=== PATIENT | female | born 1965 | race Caucasian/White ===

== ENCOUNTER 2017-12-31 12:33 | Emergency (ER) | payer OTHER ==
[2017-12-31 12:40] VITALS: BP 198/81; PULSE 78; TEMP 97.9; BMI 32.3
--- NOTE | 2017-12-31 13:29 | PDOC ---
History of Present Illness - General Chief Complaint: Pain Stated Complaint: RT LEG PAIN Time Seen by Provider: 12/31/17 12:45 History Source: Patient Exam Limitations: No Limitations - History of Present Illness Initial Comments: 12/31/17 13:26 52 yr female with right leg pain radiates to thigh. PT denies trauma, pain started in the bottom of her foot and now radiates to the calf and to the thigh , during the night had "cramping" to the leg. Pt denies travel, no recent surgery. no history of DVT. Past History - Past Medical History Allergies/Adverse Reactions: Allergies Allergy/AdvReac Type Severity Reaction Status Date / Time No Known Allergies Allergy Verified 12/31/17 12:40 Home Medications: Ambulatory Orders Metoprolol Tartrate [Lopressor -] 50 mg PO DAILY 05/22/12 Quinapril HCl [Accupril -] 10 mg PO HS 05/22/12 Simvastatin [Zocor -] 40 mg PO HS 05/22/12 metFORMIN HCL [Glucophage] 500 mg PO BID 05/22/12 Insulin (Levemir) [Levemir Vial] 35 unit SQ HS 10/28/14 Diazepam [Valium] 5 mg PO Q8H PRN #12 tablet MDD 15mg 12/31/17 COPD: No Diabetes: Yes HTN: Yes Hypercholesterolemia: Yes Other medical history: left calf infection - Surgical History Orthopedic Surgery: Yes (left calf abscess ) - Suicide/Smoking/Psychosocial Hx Smoking Status: No Smoking History: Never smoked Have you smoked in the past 12 months: No Number of Cigarettes Smoked Daily: 0 Hx Alcohol Use: No Drug/Substance Use Hx: No Substance Use Type: None *Physical Exam - Vital Signs Last Vital Signs Temp Pulse Resp BP Pulse Ox 97.9 F 78 18 198/81 99 12/31/17 12:35 12/31/17 12:35 12/31/17 12:35 12/31/17 12:35 12/31/17 12:35 - Physical Exam General Appearance: Yes: Nourished, Appropriately Dressed HEENT: positive: EOMI, LEONARDA Neck: positive: Supple. negative: Tender Respiratory/Chest: positive: Lungs Clear, Normal Breath Sounds Cardiovascular: positive: Regular Rhythm, Regular Rate Gastrointestinal/Abdominal: positive: Normal Bowel Sounds, Soft Musculoskeletal: positive: Normal Inspection. negative: CVA Tenderness Extremity: positive: Normal Capillary Refill, Normal Inspection, Normal Range of Motion, Tender (posterior calf ) Integumentary: positive: Normal Color, Dry, Warm Neurologic: positive: butter wrapper II-XII NML intact, Fully Oriented, Alert, Normal Mood/ Affect ED Treatment Course - LABORATORY CBC & Chemistry Diagram: 12/31/17 13:10 12/31/17 13:10 - RADIOLOGY Radiology Studies Ordered: Category Date Time Status DUPLEX VASCUL US-1 LEG [US] Stat Ultrasound 12/31/17 13:00 Ordered Medical Decision Making - Medical Decision Making 12/31/17 13:29 cc: right leg pain, plantar pain radiates to calf and thigh worse with walking will r/o DVT check electrolytes pt took ibuprofen PEDIATRIC SURGEON 12/31/17 13:52 negative US CBC within normal discussed elevated BUN with pt will increase water intake have labs rechecked by PMD on Tuesday12/31/17 14:44 *DC/Admit/Observation/Transfer Diagnosis at time of Disposition: Muscle spasm - Discharge Dispostion Disposition: HOME Condition at time of disposition: Good - Prescriptions Prescriptions: Diazepam [Valium] 5 mg PO Q8H PRN #12 tablet MDD 15mg PRN Reason: Muscle Spasms - Referrals - Patient Instructions Additional Instructions: follow up with your doctor next week take the valium as needed for any spasm , it may help at bedtime - Post Discharge Activity
[2017-12-31 13:30] LABS: BASO % 0.8 % (0-2.0); EOS % 5.8 % (0-4.5); HEMATOCRIT 38.1 % (32.4-45.2); HEMOGLOBIN 12.9 GM/dL (10.7-15.3); MCH 30.1 pg (25.7-33.7); MCHC 33.9 g/dl (32.0-36.0); MEAN CELL VOLUME 88.7 fl (80-96); MEAN PLT VOLUME 10.2 fl (7.5-11.1); MONO % 4.9 % (3.8-10.2); NEUT % 61.5 % (42.8-82.8); PLATELET COUNT 220 K/MM3 (134-434); RBC 4.29 M/mm3 (3.60-5.2); RDW 12.6 % (11.6-15.6); WHITE BLOOD COUNT 7.2 K/mm3 (4.0-10.0)
[2017-12-31 14:27] LABS: ALBUMIN 3.9 g/dl (3.4-5.0); ANION GAP 9 (8-16); BILIRUBIN,TOTAL 0.2 mg/dL (0.2-1.0); BLOOD UREA NITROGEN 23 mg/dL (7-18); CALCIUM 9.1 mg/dL (8.5-10.1); CHLORIDE 105 mmol/L (98-107); CO2 24 mmol/L (21-32); GLUCOSE,RANDOM 273 mg/dL (74-106); POTASSIUM 4.8 mmol/L (3.5-5.1); SGOT/AST 13 U/L (15-37); SGPT/ALT 24 U/L (12-78); SODIUM 138 mmol/L (136-145); TOT PROT 7.7 g/dl (6.4-8.2)
[2017-12-31 14:28] LABS: ALK PHOS 97 U/L (45-117)
== END 2017-12-31 14:46 | disposition home or self-care (01) ==
LOC: JERFT 12:33
DX: M62.831 Muscle spasm of calf (principal); M62.838 Other muscle spasm; I10 Essential (primary) hypertension; E78.00 Pure hypercholesterolemia, unspecified; E11.9 Type 2 diabetes mellitus without complications; Z79.4 Long term (current) use of insulin; Z79.84 Long term (current) use of oral hypoglycemic drugs
CPT/HCPCS: 36415; 73630-TC-LT; 80053; 85025; 93971-TC; 99281-25

== ENCOUNTER 2018-01-01 19:47 | Inpatient (IN) | payer OTHER ==
--- NOTE | 2018-01-01 21:03 | PDOC ---
History of Present Illness - General History Source: Patient Exam Limitations: No Limitations - History of Present Illness Initial Comments: 01/01/18 22:51 Patient is a 52 year old female with a significant past medical history of Diabetes, HTN, Hypercholesterolemia, left calf infection, who presents to the ED with complaints of left leg pain that began x4 weeks ago. Patient reports left leg pain began 1 month ago and has gradually increased in intensity until this afternoon when it became unbearable. She reports coming to the ED yesterday afternoon for left leg pain, stating she was prescribed valium and discharged from the ED. Patient reports taking valium and aspirin with no relief , prompting her to come into the ED for further evaluation. She reports left leg pain is a 10/10 pain that is increased with movement, that she states radiated from her knee to her mid left high yesterday afternoon but has recently begun to radiate to her left hip. Denies chest pain, sob. Denies nausea, vomiting, Denies contact with sick individuals, out of state travelling. Denies tingles, trauma to affected area. Denies any other symptoms. Allergies: None Social history: No smoking. No alcohol. No illicit drugs. Surgical history: Left leg surgery x7 years secondary to infection. PMD: None <Dilan Augustin - Last Filed: 01/01/18 22:51> <Debra Huang - Last Filed: 01/02/18 05:38> - General Chief Complaint: Pain Stated Complaint: LEG PAIN Time Seen by Provider: 01/01/18 20:04 Past History <Dilan Augustin - Last Filed: 01/01/18 22:51> - Past Medical History COPD: No DVT: No Diabetes: Yes HTN: Yes Hypercholesterolemia: Yes - Surgical History Orthopedic Surgery: Yes (left calf abscess ) - Suicide/Smoking/Psychosocial Hx Smoking Status: No Smoking History: Never smoked Have you smoked in the past 12 months: No Number of Cigarettes Smoked Daily: 0 Information on smoking cessation initiated: No Hx Alcohol Use: No Drug/Substance Use Hx: No Substance Use Type: None <Debra Huang - Last Filed: 01/02/18 05:38> - Past Medical History Allergies/Adverse Reactions: Allergies Allergy/AdvReac Type Severity Reaction Status Date / Time No Known Allergies Allergy Verified 12/31/17 12:40 Home Medications: Ambulatory Orders Metoprolol Tartrate [Lopressor -] 50 mg PO DAILY 05/22/12 Quinapril HCl [Accupril -] 10 mg PO HS 05/22/12 Simvastatin [Zocor -] 40 mg PO HS 05/22/12 metFORMIN HCL [Glucophage] 500 mg PO BID 05/22/12 Insulin (Levemir) [Levemir Vial] 35 unit SQ HS 10/28/14 Diazepam [Valium] 5 mg PO Q8H PRN #12 tablet MDD 15mg 12/31/17 Review of Systems - Review of Systems Able to Perform ROS?: Yes Comments:: 01/01/18 22:51 GENERAL/CONSTITUTIONAL: No fever or chills. No weakness. HEAD, EYES, EARS, NOSE AND THROAT: No change in vision. No ear pain or discharge. No sore throat. CARDIOVASCULAR: No chest pain or shortness of breath. RESPIRATORY: No cough, wheezing, or hemoptysis. GASTROINTESTINAL: No nausea, vomiting, diarrhea or constipation. GENITOURINARY: No dysuria, frequency, or change in urination. MUSCULOSKELETAL: +Left leg pain. No joint or muscle swelling. No neck or back pain. SKIN: No rash NEUROLOGIC: No headache, vertigo, loss of consciousness, or change in strength/ sensation. ENDOCRINE: No increased thirst. No abnormal weight change. HEMATOLOGIC/LYMPHATIC: No anemia, easy bleeding, or history of blood clots. ALLERGIC/IMMUNOLOGIC: No hives or skin allergy. <Dilan Augustin - Last Filed: 01/01/18 22:51> *Physical Exam - Vital Signs Last Vital Signs Temp Pulse Resp BP Pulse Ox 97.5 F L 84 22 180/98 99 01/01/18 19:50 01/01/18 22:24 01/01/18 22:24 01/01/18 22:24 01/01/18 19:50 - Physical Exam Comments: 01/01/18 22:52 GENERAL: +Overweight. +Good historian. Awake, alert, and fully oriented, in no acute distress HEAD: No signs of trauma EYES: PERRLA, EOMI, sclera anicteric, conjunctiva clear ENT: Auricles normal inspection, hearing grossly normal, nares patent, oropharynx clear without exudates. Moist mucosa NECK: Normal ROM, supple, no lymphadenopathy, JVD, or masses LUNGS: Breath sounds equal, clear to auscultation bilaterally. No wheezes, and no crackles HEART: Regular rate and rhythm, normal S1 and S2, no murmurs, rubs or gallops ABDOMEN: Soft, nontender, normoactive bowel sounds. No guarding, no rebound. No masses EXTREMITIES: + Good pedal pulses bilaterally. +PT pulses not felt bilaterally. + Left leg colder than right from hip to toes. +Left calf surgical scar with missing muscle. Normal range of motion, no edema. No clubbing or cyanosis. No cords, erythema, or tenderness NEUROLOGICAL: +Able to ambulate. Cranial nerves II through XII grossly intact. Normal speech, normal gait SKIN: Warm, Dry, normal turgor, no rashes or lesions noted. <Dilan Augustin - Last Filed: 01/01/18 22:51> - Vital Signs Last Vital Signs Temp Pulse Resp BP Pulse Ox 97.5 F L 96 H 20 183/109 99 01/01/18 19:50 01/01/18 19:50 01/01/18 19:50 01/01/18 19:50 01/01/18 19:50 <Debra Huang - Last Filed: 01/02/18 05:38> ED Treatment Course - LABORATORY CBC & Chemistry Diagram: 01/01/18 22:00 01/01/18 22:20 - ADDITIONAL ORDERS Additional order review: Laboratory Results 01/01/18 01/01/18 01/01/18 22:20 22:00 22:00 PT with INR 10.90 INR 0.96 PTT (Actin FS) 27.8 D-Dimer 598 H Creatine Kinase 68 Troponin I < 0.02 01/01/18 22:00 RBC 4.80 MCV 87.6 MCHC 33.7 RDW 13.2 MPV 10.1 Neutrophils % 62.9 Lymphocytes % 28.8 Monocytes % 5.1 Eosinophils % 2.6 Basophils % 0.6 - Medications Given in the ED: ED Medications Discontinued Medications Generic Name Dose Route Start Last Admin Trade Name Freq PRN Reason Stop Dose Admin Quinapril HCl 10 mg 01/01/18 22:14 01/01/18 22:37 Accupril - PO 01/01/18 22:15 10 mg ONCE ONE Administration <Dilan Augustin - Last Filed: 01/01/18 22:51> - LABORATORY CBC & Chemistry Diagram: 01/01/18 22:00 01/01/18 22:20 <Debra Huang - Last Filed: 01/02/18 05:38> Medical Decision Making - Medical Decision Making 01/01/18 22:48 Ddimer is 598. Pt comes with left leg pain. She wose up yesterday with foot pain radiating up her leg. SHe came to the ER and was seen in fast track and ruled out for DVT. Pt comes back as the pain is still there and is radiating up the leg further. She has no fevers or chills. She is leaning to the right side as the left leg is so painful. Pt's left leg is colder than the right leg. Pt will have CTA of the lower ext. Pt will have labs, as her BP wa systolic 198 yesterday and 183 today. Pt states that she is complaint with her metoprolol and quinapril for the BP. SHe will be treated with an extra dose of quinapril here and a dose of percocet here. 01/02/18 05:37 Pt will be admitted for Vasc surg consult. She will receive IV lovenox. <Debra Huang - Last Filed: 01/02/18 05:38> *DC/Admit/Observation/Transfer - Attestations Scribe Attestion: 01/01/18 22:52 Documentation prepared by Dilan Augustin, acting as medical records administrator for Debra Huang MD. <Dilan Augustin - Last Filed: 01/01/18 22:51> - Discharge Dispostion Decision to Admit order: Yes <Debra Huang - Last Filed: 01/02/18 05:38> Diagnosis at time of Disposition: Arterial occlusion, lower extremity - Discharge Dispostion Condition at time of disposition: Guarded
[2018-01-01] MEDS ORDERED: QUINAPRIL HCL 10 MG TABLET (FP) PO ONE (22:14)
[2018-01-01 22:25] LABS: BASO % 0.6 % (0-2.0); EOS % 2.6 % (0-4.5); HEMATOCRIT 42.1 % (32.4-45.2); HEMOGLOBIN 14.2 GM/dL (10.7-15.3); LYMPH % 28.8 % (8-40); MCH 29.5 pg (25.7-33.7); MCHC 33.7 g/dl (32.0-36.0); MEAN CELL VOLUME 87.6 fl (80-96); MEAN PLT VOLUME 10.1 fl (7.5-11.1); MONO % 5.1 % (3.8-10.2); NEUT % 62.9 % (42.8-82.8); PLATELET COUNT 276 K/MM3 (134-434); RDW 13.2 % (11.6-15.6)
[2018-01-01] MEDS ORDERED: QUINAPRIL HCL 10 MG TABLET (FP) ONE (22:29)
[2018-01-01 22:41] LABS: ACTIVATED PTT 27.8 SECONDS (25.2-36.5); INR 0.96 (0.82-1.09); PROTHROMBIN TIME (PATIENT) 10.9 SEC (9.7-13.0)
[2018-01-01 23:21] LABS: ALBUMIN 4.2 g/dl (3.4-5.0); ALK PHOS 70 U/L (45-117); ANION GAP 15 (8-16); BILIRUBIN,TOTAL 0.3 mg/dL (0.2-1.0); BLOOD UREA NITROGEN 23 mg/dL (7-18); CALCIUM 10.2 mg/dL (8.5-10.1); CHLORIDE 104 mmol/L (98-107); CO2 21 mmol/L (21-32); CREATININE 1.1 mg/dL (0.55-1.02); GLUCOSE,RANDOM 191 mg/dL (74-106); POTASSIUM 4.2 mmol/L (3.5-5.1); SGOT/AST 14 U/L (15-37); SGPT/ALT 24 U/L (12-78); SODIUM 140 mmol/L (136-145); TOT PROT 8.4 g/dl (6.4-8.2)
[2018-01-02] MEDS ORDERED: ONDANSETRON 4 MG/2 ML VIAL ONE (00:17)
[2018-01-02] MEDS ORDERED: MORPHINE SULFATE 2 MG/ML VIAL ONE (00:17)
[2018-01-02] MEDS ORDERED: morphine CARPU-JECT 2 MG/1 ML DISP.SYRIN IVPUSH ONE (00:17)
[2018-01-02] MEDS ORDERED: ONDANSETRON 4 MG/2 ML VIAL IVPB ONE (00:17)
[2018-01-02] MEDS ORDERED: SODIUM CHLORIDE 0.9% 500 ML INFUS.BAG IV ONE (01:24)
[2018-01-02] MEDS ORDERED: ENOXAPARIN NA (PORCINE) 80 MG/0.8 ML DISP.SYRIN SQ ONE ×2 (01:35→01:50)
--- NOTE | 2018-01-02 02:41 | PN ---
Teaching Attending Note Name of Resident: Nigel Umaña ATTENDING PHYSICIAN STATEMENT I saw and evaluated the patient. I reviewed the resident's note and discussed the case with the resident. I agree with the resident's findings and plan as documented. SUBJECTIVE: Patient is a 52 year old woman history of NIDDM, HTN, Multiple abscesses, Hypercholesterolemia, left calf infection, who presents to the ER with complaints of left leg pain for four weeks. Patient reports left leg pain began 1 month ago and has gradually increased in intensity until this afternoon when it became unbearable. She came to the ER yesterday for same left leg pain, was evaluated and discharged on valium. Patient reports taking valium and aspirin with no relief, prompting her to come into the ER for further evaluation. She reports left leg pain is a 10/10 pain that is increased with movement, that she states radiated from her knee to her mid left thigh and hip. OBJECTIVE: Alert and in no acute distress. Vital Signs Period Temp Pulse Resp BP Sys/Rivera Pulse Ox Last 24 Hr 97.5 F 74-96 16-22 140-183/80-109 99 HEENT: No Jaundice, eye redness or discharge, PERRLA, EOMI. Normocephalic, atraumatic. External ears are normal and hearing is grossly intact. No nasal discharge. Neck: Supple, nontender. No palpable adenopathy or thyromegaly. No JVD Chest: Good effort. Clear to auscultation and percussion. Heart: Regular. No S3, rub or murmur Abdomen: Not distended, soft, nontender and no HSM. No rebound or guarding. Normoactive bowel sounds. Ext: Both legs are pale and the left is a little cooler than the right with diminished pulses. No tenderness. Left calf surgical scar with reduced muscle mass. No leg edema. Skin: Warm and dry. No petechiae, rash or ecchymosis. Neuro: Alert. Oriented x3. CN 2-12 grossly intact. Sensation grossly intact in all four extremities and DTR are symmetric. Home Medications Medication Instructions Recorded Metoprolol Tartrate [Lopressor -] 50 mg PO DAILY 05/22/12 Quinapril HCl [Accupril -] 10 mg PO HS 05/22/12 Simvastatin [Zocor -] 40 mg PO HS 11/26/12 metFORMIN HCL [Glucophage] 500 mg PO BID 05/22/12 Insulin (Levemir) [Levemir Vial] 35 unit SQ HS 10/28/14 Diazepam [Valium] 5 mg PO Q8H PRN #12 tablet MDD 15mg 12/31/17 Abnormal Lab Results 01/01/18 01/01/18 01/01/18 22:00 22:00 22:20 WBC 11.0 H D-Dimer 598 H BUN 23 H Creatinine 1.1 H Random Glucose 191 H Calcium 10.2 H AST 14 L Total Protein 8.4 H ASSESSMENT AND PLAN: 1. Left leg arterial occlusion - Clinical features as well as CT scan consistent with possible partial arterial occlusion. Patient got a full dose lovenox and vascular surgery consult is being requested stat. 2. DM - For now, we will hold the home diabetes drugs and implement sliding scale insulin regimen. Provide comprehensive diabetes care with patient teaching and counseling about the importance of euglycemia, eye care and foot care. 3. LUIS - Likely due to dehydration. Will hydrate orally and with IV NS. Avoid nephrotoxic agents such as NSAIDS, aminoglycosides, contrast dyes and certain Alternative medicine products. 4. Hypercalcemia - May be due to dehydration. If it fails to correct with hydration, will check PTH. 5. DVT prophylaxis - Getting full dose Lovenox 6. Advance directives - Full code
[2018-01-02] MEDS ORDERED: ACETAMINOPHEN 325 MG TABLET (FP) PO PRN (03:48)
--- NOTE | 2018-01-02 03:57 | HP ---
CHIEF COMPLAINT: left lower leg pain PCP: HISTORY OF PRESENT ILLNESS: 52 y/o female with PMH DM, HTN, HLD, left calf infection 7 years ago, presents with lateral left lower leg pain. States the pain began 4 weeks ago as a vague on/ off pain that progressed to more severe pain over past two days. States she woke up yesterday with pain and came to the ED where she was prescribed valium and aspirin. States today the pain is excruciating, and radiates to the left thigh anteriorly and medially. Admits to ability to bear weight, but difficulty walking. Denies fevers, chills, SOB, chest pain, palpitations, N/V/D. ER course was notable for: (1) (2) (3) Recent Travel: PAST MEDICAL HISTORY: PMH DM, HTN, HLD, left calf infection 7 years ago PAST SURGICAL HISTORY: Left leg surgery 7 years ago for "muscle infection" Social History: Smoking: denies Alcohol: admits, socially Drugs: denies Family History: HCM, lung cancer (father) Allergies No Known Allergies Allergy (Verified 12/31/17 12:40) HOME MEDICATIONS: Home Medications Medication Instructions Recorded Metoprolol Tartrate [Lopressor -] 50 mg PO DAILY 05/22/12 Quinapril HCl [Accupril -] 10 mg PO HS 05/22/12 Simvastatin [Zocor -] 40 mg PO HS 05/22/12 metFORMIN HCL [Glucophage] 500 mg PO BID 05/22/12 Insulin (Levemir) [Levemir Vial] 35 unit SQ HS 10/28/14 Diazepam [Valium] 5 mg PO Q8H PRN #12 tablet MDD 15mg 12/31/17 REVIEW OF SYSTEMS CONSTITUTIONAL: Absent: fever, chills, diaphoresis, generalized weakness, CARDIOVASCULAR: Absent: chest pain, syncope, palpitations RESPIRATORY: Absent: cough, shortness of breath, wheezing GASTROINTESTINAL: Absent: abdominal pain, nausea, vomiting, diarrhea, MUSCULOSKELETAL: Admits: Left leg pain. NEUROLOGIC: Admits: Paresthesias in left lower leg. Absent: headache, focal weakness, dizziness, PHYSICAL EXAMINATION Vital Signs - 24 hr 01/01/18 01/01/18 01/02/18 19:50 22:24 01:10 Temperature 97.5 F L Pulse Rate 96 H Pulse Rate [ 84 74 Left Brachial] Respiratory 20 22 16 Rate Blood Pressure 183/109 Blood Pressure 180/98 140/80 [Left Arm] O2 Sat by Pulse 99 Oximetry (%) GENERAL: Awake, alert, and fully oriented, in no acute distress. HEAD: Normal with no signs of trauma. EYES: Pupils equal, round and reactive to light, extraocular movements intact LUNGS: Breath sounds equal, clear to auscultation bilaterally. No wheezes, and no crackles. HEART: Regular rate and rhythm, normal S1 and S2. No murmur, rub or gallop. ABDOMEN: Soft, nontender, normoactive bowel sounds. MUSCULOSKELETAL: Normal range of motion at all joints. No bony deformities or tenderness. No CVA tenderness. UPPER EXTREMITIES: 2+ pulses, warm, well-perfused. LOWER EXTREMITIES: 2+ DP pulses B/L. Left leg cooler compared to right leg. NEUROLOGICAL: Cranial nerves II-XII intact. Normal speech. PSYCHIATRIC: Cooperative. Appropriate mood and affect. SKIN: Pallor of left leg noted compared to right leg. Laboratory Results - last 24 hr 01/01/18 01/01/18 01/01/18 22:00 22:00 22:00 WBC 11.0 H RBC 4.80 Hgb 14.2 Hct 42.1 MCV 87.6 MCH 29.5 MCHC 33.7 RDW 13.2 Plt Count 276 D MPV 10.1 Absolute Neuts (auto) 6.9 Neutrophils % 62.9 Lymphocytes % 28.8 Monocytes % 5.1 Eosinophils % 2.6 Basophils % 0.6 Nucleated RBC % 0 PT with INR 10.90 INR 0.96 PTT (Actin FS) 27.8 D-Dimer 598 H Sodium Potassium Chloride Carbon Dioxide Anion Gap BUN Creatinine Creat Clearance w eGFR Random Glucose Calcium Total Bilirubin AST ALT Alkaline Phosphatase Creatine Kinase Troponin I Total Protein Albumin 01/01/18 01/01/18 22:20 22:20 WBC RBC Hgb Hct MCV MCH MCHC RDW Plt Count MPV Absolute Neuts (auto) Neutrophils % Lymphocytes % Monocytes % Eosinophils % Basophils % Nucleated RBC % PT with INR INR PTT (Actin FS) D-Dimer Sodium 140 Potassium 4.2 Chloride 104 Carbon Dioxide 21 Anion Gap 15 BUN 23 H Creatinine 1.1 H Creat Clearance w eGFR 52.36 Random Glucose 191 H Calcium 10.2 H Total Bilirubin 0.3 AST 14 L ALT 24 Alkaline Phosphatase 70 D Creatine Kinase 68 Troponin I < 0.02 Total Protein 8.4 H Albumin 4.2 ASSESSMENT/PLAN: 52 y/o female with PMH DM, HTN, HLD, left calf infection presents with complaint of left lower leg pain for the past 4 weeks. Ischemia -CTA of lower extremity showed possible partial arterial occlusion. -Vascular surgery Dr. Fernandez consulted -Tylenol PRN for pain Elevated BUN/Cr -Encouraging oral hydration Proteinuria with elevated albumin -Consider protein studies as outpatient to r/o multiple myeloma DM -Insulin sliding scale -Fingerstick blood glucose monitoring FEN -Oral hydration encouraged -No electrolyte repletion at this time -Diabetic diet Prophylaxis -Lovenox 40mg subq Q24H Disposition: admit to medical surgical unit Advance directives: Full code Case discussed with functional support analyst attending Nigel Umaña DO PGY1 Visit type - Emergency Visit Emergency Visit: Yes ED Registration Date: 01/02/18 Care time: The patient presented to the Emergency Department on the above date and was hospitalized for further evaluation of their emergent condition. - New Patient This patient is new to me today: Yes Date on this admission: 01/02/18 - Critical Care Critical Care patient: No Hospitalist Screening - Colonoscopy Questionnaire Colonoscopy Questionnaire: Colonoscopy Questionnaire - Patient: 50 - 75 years old and never had a screening colonoscopy: Unknown History of colon or rectal polyps, or CA: Unknown History of IBD, Crohn's disease or UC: Unknown History of abdominal radiation therapy as a child: Unknown - Relative: 1 with colon or rectal CA, or polyps at age 60 or younger: Unknown Colon or rectal CA diagnosed at age 45 or younger: Unknown Multiple relatives with colon or rectal CA: Unknown - Outcome: Screening Result: Negative Screen
[2018-01-02 05:07] VITALS: BMI 36.0
[2018-01-02] MEDS ORDERED: PT OWN MED DRAWER 7, Y5N ONE ×2 (05:56→11:00)
[2018-01-02] MEDS ORDERED: ENOXAPARIN NA (PORCINE) 40 MG/0.4 ML DISP.SYRIN SQ ONE (06:34)
[2018-01-02] MEDS: INSULIN SLIDING SCALE (NOVOLOG) 1 VIAL SQ SCH ×4 (06:57→21:37)
--- NOTE | 2018-01-02 08:49 | EKG ---
Test Reason : Blood Pressure : / mmHG Vent. Rate : 077 BPM Atrial Rate : 077 BPM P-R Int : 124 ms QRS Dur : 084 ms QT Int : 394 ms P-R-T Axes : 025 001 007 degrees QTc Int : 445 ms NORMAL SINUS RHYTHM NORMAL ECG NO PREVIOUS ECGS AVAILABLE Confirmed by NAVA MACHADO MD ([id number]) on 01/02/2018 8:49:26 AM Referred By: Confirmed By:NAVA MACHADO MD
[2018-01-02] MEDS ORDERED: oxyCODONE HCL 5 MG TABLET PO PRN (10:29)
[2018-01-02] MEDS: ONDANSETRON 4 MG/2 ML VIAL IVPB PRN ×2 (10:58→18:46)
[2018-01-02] MEDS: METOPROLOL TARTRATE 50 MG TABLET (FP) PO SCH (11:43)
[2018-01-02] MEDS ORDERED: INSULIN (NOVOLOG) ASPART 100 UNITS/ML 10ML VIAL ONE (11:46)
[2018-01-02] MEDS: diazePAM 5 MG TABLET PO PRN ×2 (13:12→23:43)
[2018-01-02] MEDS: MORPHINE SULFATE 2 MG/ML VIAL IVPUSH PRN ×2 (13:12→21:23)
[2018-01-02] MEDS: ENOXAPARIN NA (PORCINE) 100 MG/1 ML DISP.SYRIN SQ SCH (13:12)
--- NOTE | 2018-01-02 14:09 | PN ---
Progress Note (short form) - Note Progress Note: Subjective: The patient was seen and examined at the bedside, exam limited 2/2 pain Patient has complaints of left leg pain from the left buttock to her toes. Left leg is cold Current Medications Generic Name Dose Route Start Last Admin Trade Name Freq PRN Reason Stop Dose Admin Acetaminophen 650 mg 01/02/18 03:48 01/02/18 07:07 Tylenol - PO 650 mg Q6H PRN Administration Fever Or Pain Level 1-5 Atorvastatin Calcium 20 mg 01/02/18 22:00 Lipitor - PO HS BHARATH Diazepam 5 mg 01/02/18 10:28 01/02/18 13:12 Valium - PO 5 mg Q8H PRN Administration MUSCLE SPASMS Enoxaparin Sodium 100 mg 01/02/18 13:00 01/02/18 13:12 Lovenox - SQ 100 mg Q12H BHARATH Administration Insulin Aspart 1 vial 01/02/18 07:00 01/02/18 11:46 Novolog Vial Sliding Scale - SQ 6 units ACHS BHARATH Administration Protocol Insulin Detemir 35 units 01/02/18 22:00 Levemir Vial SQ HS [facility] Metoprolol Tartrate 50 mg 01/02/18 10:30 01/02/18 11:43 Lopressor - PO 50 mg DAILY BHARATH Administration Morphine Sulfate 2 mg 01/02/18 13:00 01/02/18 13:12 Morphine Sulfate IVPUSH 2 mg Q4H PRN Administration PAIN LEVEL 7 - 10 Ondansetron HCl 4 mg 01/02/18 10:32 01/02/18 10:58 Zofran Injection IVPB 4 mg Q8H PRN Administration NAUSEA Oxycodone HCl 5 mg 01/02/18 10:29 Roxicodone - PO Q6H PRN PAIN LEVEL 7 - 10 Quinapril HCl 10 mg 01/02/18 22:00 Accupril - PO HS [facility] Objective: Vital Signs Period Temp Pulse Resp BP Sys/Rivera Pulse Ox Last 24 Hr 97.5 F-98.1 F 74-96 16-22 140-183/80-109 98-99 Physical Exam: Limited 2/2 pain Ext: LLE cold with 2+ DP pulses CBCD WBC 11.0 K/mm3 (4.0-10.0) H 01/01/18 22:00 RBC 4.80 M/mm3 (3.60-5.2) 01/01/18 22:00 Hgb 14.2 GM/dL (10.7-15.3) 01/01/18 22:00 Hct 42.1 % (32.4-45.2) 01/01/18 22:00 MCV 87.6 fl (80-96) 01/01/18 22:00 MCHC 33.7 g/dl (32.0-36.0) 01/01/18 22:00 RDW 13.2 % (11.6-15.6) 01/01/18 22:00 Plt Count 276 K/MM3 (134-434) D 01/01/18 22:00 MPV 10.1 fl (7.5-11.1) 01/01/18 22:00 CMP Sodium 140 mmol/L (136-145) 01/01/18 22:20 Potassium 4.2 mmol/L (3.5-5.1) 01/01/18 22:20 Chloride 104 mmol/L (98-107) 01/01/18 22:20 Carbon Dioxide 21 mmol/L (21-32) 01/01/18 22:20 Anion Gap 15 (8-16) 01/01/18 22:20 BUN 23 mg/dL (7-18) H 01/01/18 22:20 Creatinine 1.1 mg/dL (0.55-1.02) H 01/01/18 22:20 Creat Clearance w eGFR 52.36 (>60) 01/01/18 22:20 Random Glucose 191 mg/dL (74-106) H 01/01/18 22:20 Calcium 10.2 mg/dL (8.5-10.1) H 01/01/18 22:20 Total Bilirubin 0.3 mg/dL (0.2-1.0) 01/01/18 22:20 AST 14 U/L (15-37) L 01/01/18 22:20 ALT 24 U/L (12-78) 01/01/18 22:20 Alkaline Phosphatase 70 U/L (45-117) D 01/01/18 22:20 Total Protein 8.4 g/dl (6.4-8.2) H 01/01/18 22:20 Albumin 4.2 g/dl (3.4-5.0) 01/01/18 22:20 CARDIAC ENZYMES Creatine Kinase 68 IU/L (26-192) 01/01/18 22:20 Troponin I < 0.02 ng/ml (0.00-0.05) 01/01/18 22:20 Assessment: This is a 52 year old female with PMHx of NIDDM, HTN, hypercholesterolemia, who presented to the ED with left leg pain x4 weeks. Plan: 1) Left leg pain - Discussed with Dr. Fernandez who reviewed CTA and recommended neurosurgery consult - Discussed with Dr. Rubalcava, recommendation to order imaging, CT lumbar and MRI lumbar - Pain management - Continue to monitor 2) NIDDM - BGM ACHS - ISS ACHS - Levemir 3) HTN - Continue Lopressor 4) F/E/N: - Monitor electrolytes - Diabetic/sodium controlled diet 5) Prophylaxis: - Hold all chemical DVT prophylaxis for now if possible surgical intervention tomorrow 6) Dispo: - Requires continued inpatient care CODE STATUS: FULL CODE Visit type - Emergency Visit Emergency Visit: Yes ED Registration Date: 01/02/18 Care time: The patient presented to the Emergency Department on the above date and was hospitalized for further evaluation of their emergent condition. - New Patient This patient is new to me today: Yes Date on this admission: 01/02/18 - Critical Care Critical Care patient: No
[2018-01-02] MEDS: DEXAMETHASONE SOD PHOSPHATE 4 MG/1 ML VIAL IVPUSH SCH ×2 (16:53→21:19)
[2018-01-02] MEDS: PANTOPRAZOLE SODIUM 40 MG VIAL IVPUSH SCH (16:53)
--- NOTE | 2018-01-02 19:30 | PN ---
Progress Note (short form) - Note Progress Note: VAscular Surgery Pt seen and examined. Pt has bl DP pulses palpable. Pt complaining of pain that starts in the back and goes down her left leg. CTA is negative for any embolus that would cause ischemia. The left foot is not ischemic. Neurosurgery on case for neurological component for etiology. Jamie Fernandez DO
[2018-01-02] MEDS ORDERED: CHLORHEXIDINE GLUCONATE 4% CLEANSER FOR DECOLONIZATION TP SCH (22:00)
[2018-01-02] MEDS ORDERED: INSULIN (LEVEMIR) 100 UNITS/ML UNITS SQ SCH (22:00)
[2018-01-02] MEDS ORDERED: ATORVASTATIN CA 20 MG TABLET (FP) PO SCH (22:00)
[2018-01-02] MEDS ORDERED: QUINAPRIL HCL 10 MG TABLET (FP) PO SCH (22:00)
--- NOTE | 2018-01-02 22:56 | CONSULT ---
Consult - text type - Consultation Consultation Note: NEUROSURGERY CONSULTATION Roslyn Villalobos is a 52 year old female with a history of back and leg pain which has been managed with conservative efforts. Four weeks ago, the patient developed exacerbation with Left Leg radicular pain including groin and anterior thigh pain on the Left. The patient presented to the [facility] ER with intractable pain and was found to have cool lower extremities, particularly on the Left. Complete vascular evaluation by Dr. Fernandez including CTA did not suggest vascular compromise contributing to her leg coolness. Neurosurgery consultation was requested. MRI Lumbar shows multilevel degenerative disease with a fairly large HNP at L23 which effaces the ventral epidural space and compromises both exiting nerve roots. There is mild listhesis and Modic changes suggestive of instability. The patient appears to be in absolute agony and cannot shift in bed. Indeed, examination is severely hampered by her pain and she must remain on her Right side with her legs slightly bent at the waist and extended and deviated to the right on a small ottoman. MRI Lumbar suggests that the L23 disc is most likely causative of her acute problems and the position of comfort would also hint that this is the level of Pathology. I will discuss L23 decompression and fusion with patient and spouse in detail in the morning. (MRI obtained subsequent to my visit to the patient)
[2018-01-03] MEDS ORDERED: MELATONIN 5 MG TABLETS PO PRN ×2 (00:31→19:37)
[2018-01-03] MEDS: ENOXAPARIN NA (PORCINE) 100 MG/1 ML DISP.SYRIN SQ SCH ×2 (01:19→18:11)
[2018-01-03] MEDS: MORPHINE SULFATE 2 MG/ML VIAL IVPUSH PRN ×2 (01:41→09:19)
[2018-01-03] MEDS: DEXAMETHASONE SOD PHOSPHATE 4 MG/1 ML VIAL IVPUSH SCH ×4 (03:11→22:30)
[2018-01-03] MEDS: INSULIN SLIDING SCALE (NOVOLOG) 1 VIAL SQ SCH ×4 (06:07→23:48)
--- NOTE | 2018-01-03 08:48 | PN ---
Progress Note (short form) - Note Progress Note: Subjective: The patient was seen and examined at the bedside, she discussed surgery with Dr. Rubalcava and is scheduled to have it today. The patient reports concern as she has had two family members after receiving anesthesia. She states they both had hypertrophic cardiomyopathy. She states she was worked up for it a few years ago and believes it was negative. Stat ECHO ordered Cardiology consult Discussed above with Dr. Meyer and that patient will need cardiac clearance prior to surgery. He is in agreement with plan. Current Medications Generic Name Dose Route Start Last Admin Trade Name Freq PRN Reason Stop Dose Admin Acetaminophen 650 mg 01/02/18 03:48 01/02/18 07:07 Tylenol - PO 650 mg Q6H PRN Administration Fever Or Pain Level 1-5 Atorvastatin Calcium 20 mg 01/02/18 22:00 01/02/18 21:20 Lipitor - PO 20 mg HS BHARATH Administration Chlorhexidine Gluconate 1 applic 01/02/18 22:00 Hibiclens For Decolonization - TP HS BHARATH Dexamethasone Sodium Phosphate 6 mg 01/02/18 15:45 01/03/18 03:11 Decadron Injection - IVPUSH 6 mg Q6H-IV BHARATH Administration Diazepam 5 mg 01/02/18 10:28 01/02/18 23:43 Valium - PO 5 mg Q8H PRN Administration MUSCLE SPASMS Enoxaparin Sodium 100 mg 01/02/18 13:00 01/03/18 01:19 Lovenox - SQ Not Given Q12H BHARATH Sodium Chloride 1,000 mls @ 100 mls/hr 01/03/18 09:00 Normal Saline - IV ASDIR BHARATH Insulin Aspart 1 vial 01/02/18 16:30 01/03/18 06:07 Novolog Vial Sliding Scale - SQ 8 units ACHS BHARATH Administration Protocol Insulin Detemir 35 units 01/02/18 22:00 01/02/18 21:40 Levemir Vial SQ Not Given HS BHARATH Melatonin 5 mg 01/03/18 00:31 01/03/18 00:42 Melatonin PO 5 mg HS PRN Administration INSOMNIA Metoprolol Tartrate 50 mg 01/02/18 10:30 01/02/18 11:43 Lopressor - PO 50 mg DAILY BHARATH Administration Morphine Sulfate 2 mg 01/02/18 13:00 01/03/18 01:41 Morphine Sulfate IVPUSH 2 mg Q4H PRN Administration PAIN LEVEL 7 - 10 Ondansetron HCl 4 mg 01/02/18 10:32 01/02/18 18:46 Zofran Injection IVPB 4 mg Q8H PRN Administration NAUSEA Oxycodone HCl 5 mg 01/02/18 10:29 Roxicodone - PO Q6H PRN PAIN LEVEL 7 - 10 Pantoprazole Sodium 40 mg 01/02/18 15:45 01/02/18 16:53 Protonix Iv IVPUSH 40 mg DAILY BHARATH Administration Quinapril HCl 10 mg 01/02/18 22:00 01/02/18 21:38 Accupril - PO 10 mg HS BHARATH Administration Objective: Vital Signs Period Temp Pulse Resp BP Sys/Rivera Pulse Ox Last 24 Hr 97.5 F-98.3 F 82-98 18-20 149-160/69-90 98 Physical Exam: General: NAD, appears more comfortable today and in less pain Heart: RRR, S1S2 Lungs: CTA bilaterally Abd: Soft, non-tender, non-distended. Normoactive bowel sounds Ext: B/l 2+ DP. Lower extremities both warm CBCD WBC 11.0 K/mm3 (4.0-10.0) H 01/01/18 22:00 RBC 4.80 M/mm3 (3.60-5.2) 01/01/18 22:00 Hgb 14.2 GM/dL (10.7-15.3) 01/01/18 22:00 Hct 42.1 % (32.4-45.2) 01/01/18 22:00 MCV 87.6 fl (80-96) 01/01/18 22:00 MCHC 33.7 g/dl (32.0-36.0) 01/01/18 22:00 RDW 13.2 % (11.6-15.6) 01/01/18 22:00 Plt Count 276 K/MM3 (134-434) D 01/01/18 22:00 MPV 10.1 fl (7.5-11.1) 01/01/18 22:00 CMP Sodium 140 mmol/L (136-145) 01/01/18 22:20 Potassium 4.2 mmol/L (3.5-5.1) 01/01/18 22:20 Chloride 104 mmol/L (98-107) 01/01/18 22:20 Carbon Dioxide 21 mmol/L (21-32) 01/01/18 22:20 Anion Gap 15 (8-16) 01/01/18 22:20 BUN 23 mg/dL (7-18) H 01/01/18 22:20 Creatinine 1.1 mg/dL (0.55-1.02) H 01/01/18 22:20 Creat Clearance w eGFR 52.36 (>60) 01/01/18 22:20 Random Glucose 191 mg/dL (74-106) H 01/01/18 22:20 Calcium 10.2 mg/dL (8.5-10.1) H 01/01/18 22:20 Total Bilirubin 0.3 mg/dL (0.2-1.0) 01/01/18 22:20 AST 14 U/L (15-37) L 01/01/18 22:20 ALT 24 U/L (12-78) 01/01/18 22:20 Alkaline Phosphatase 70 U/L (45-117) D 01/01/18 22:20 Total Protein 8.4 g/dl (6.4-8.2) H 01/01/18 22:20 Albumin 4.2 g/dl (3.4-5.0) 01/01/18 22:20 CARDIAC ENZYMES Creatine Kinase 68 IU/L (26-192) 01/01/18 22:20 Troponin I < 0.02 ng/ml (0.00-0.05) 01/01/18 22:20 Assessment: This is a 52 year old female with PMHx of NIDDM, HTN, hypercholesterolemia, who presented to the ED with left leg pain x4 weeks. Plan: 1) Left leg pain - Discussed with Dr. Fernandez who reviewed CTA and recommended neurosurgery consult - Lumbar MRI with L2-3 loss of disc space height, vacuum phenomena noted in the disc space. T2 increased signal intensity of the disc material. Prominent circumferential disc bulge with midline disc extrusion, 6mm caudal extension of the disc in relation to the L2-L3 disc space behind the superior posterior aspect of L3 vertebral body. Central spinal canal stenosis. B/l neural foraminal narrowing - Discussed with neurosurgery yesterday who recommended starting Decadron 6mg q6h - For surgery today with Dr. Rubalcava - Pain management - Continue to monitor 2) Family history of hypertrophic cardiomyopathy - Stat ECHO: discussed with Dr. Haines who read ECHO as normal - Cardiology consult for clearance - Discussed with Dr. Rubalcava, he is aware the surgery may need to be pushed back until clearance obtained 2) NIDDM - BGM ACHS - ISS ACHS - Levemir 3) HTN - Continue Lopressor 4) F/E/N: - Monitor electrolytes - NPO for surgery today 5) Prophylaxis: - Hold all chemical DVT prophylaxis for surgery today 6) Dispo: - Requires continued inpatient care CODE STATUS: FULL CODE Visit type - Emergency Visit Emergency Visit: Yes ED Registration Date: 01/02/18 Care time: The patient presented to the Emergency Department on the above date and was hospitalized for further evaluation of their emergent condition. - New Patient This patient is new to me today: No - Critical Care Critical Care patient: No
[2018-01-03] MEDS ORDERED: SODIUM CHLORIDE 1,000 ML IV SCH (09:00)
[2018-01-03] MEDS: PANTOPRAZOLE SODIUM 40 MG VIAL IVPUSH SCH (09:20)
[2018-01-03] MEDS: METOPROLOL TARTRATE 50 MG TABLET (FP) PO SCH (09:20)
--- NOTE | 2018-01-03 10:14 | PN ---
Progress Note (short form) - Note Progress Note: Echo system is currently down. Report cannot be entered at this time. Full report will be done when system back up. Echo images reviewed from machine. Briefly, Technically difficult study, grossly normal LV systolic function, No significant intracavitary or LVOT gradient seen. No significant valvular abnormalities seen.
[2018-01-03] MEDS ORDERED: INSULIN (NOVOLOG) ASPART 100 UNITS/ML 10ML VIAL SQ ONE ×3 (12:25→19:37)
--- NOTE | 2018-01-03 12:28 | CON.CARD ---
Consult Consult Specialty:: Cardiology Referred by:: Hospitalist Reason for Consultation:: Cardiac clearance - History of Present Illness Chief Complaint: Left leg pain due to lumbar disc disease History of Present Illness: Patient is a 52 year old female with underlying history of HTN, hypercholesterolemia and DM (type 2) who presents with left lower extremity pain due to lumbar disc disease (as noted on MRI). She was seen by Neurosurgery and currently is scheduled for surgical intervention of her lumbar spine. Patient reported extensive family history of hypertrophic cardiomyopathy and some had due to it. Surgery was held until echocardiography which was ordered and cardiac clearance was requested. Currently she denies chest pain, shortness of breath or palpitations. She denies paroxysmal nocturnal dyspnea or orthopnea. She denies nausea, vomiting, diarrhea or abdominal pain. She denies fever or chills. She denies headache or lightheadedness - History Source History Provided By: Patient, Medical Record Limitations to Obtaining History: No Limitations - Past Medical History Cardio/Vascular: Yes: HTN, Hyperlipdemia Endocrine: Yes: Diabetes Mellitus - Alcohol/Substance Use Hx Alcohol Use: No - Smoking History Smoking history: Never smoked Have you smoked in the past 12 months: No Aproximately how many cigarettes per day: 0 Home Medications - Allergies Allergies/Adverse Reactions: Allergies Allergy/AdvReac Type Severity Reaction Status Date / Time No Known Allergies Allergy Verified 12/31/17 12:40 - Home Medications Home Medications: Ambulatory Orders Metoprolol Tartrate [Lopressor -] 50 mg PO DAILY 05/22/12 Quinapril HCl [Accupril -] 10 mg PO HS 05/22/12 Simvastatin [Zocor -] 40 mg PO HS 05/22/12 metFORMIN HCL [Glucophage] 500 mg PO BID 05/22/12 Insulin (Levemir) [Levemir Vial] 35 unit SQ HS 10/28/14 Diazepam [Valium] 5 mg PO Q8H PRN #12 tablet MDD 15mg 12/31/17 Family Disease History - Family Disease History Other Family History: Family history of hypertrophic cardiomyopathy Review of Systems - Review of Systems Constitutional: denies: Chills, Fever Cardiovascular: denies: Chest Pain, Palpitations, Shortness of Breath Respiratory: denies: Cough, Hemoptysis, Orthopnea, PND, SOB, SOB on Exertion Gastrointestinal: denies: Abdominal Pain, Constipation, Diarrhea, Melena, Nausea , Rectal Bleeding, Vomiting Genitourinary: denies: Discharge, Hematuria Neurological: denies: Dizziness, Headache, Seizure, Syncope, Unsteady Gait, Weakness Vital Signs: Vital Signs Temperature 97.8 F 01/03/18 09:12 Pulse Rate 105 H 01/03/18 09:12 Respiratory Rate 18 01/03/18 09:12 Blood Pressure 139/87 01/03/18 09:12 O2 Sat by Pulse Oximetry (%) 98 01/02/18 09:00 Eyes: Yes: PERRL HENT: Yes: Atraumatic Neck: Yes: Supple Respiratory: Yes: Regular, CTA Bilaterally Gastrointestinal: Yes: Normal Bowel Sounds, Soft. No: Tenderness Cardiovascular: Yes: Regular Rate and Rhythm JVD: No Carotid Bruit: No PMI: Non-Displaced Heart Sounds: Yes: S1, S2. No: Gallop Murmur: No: Systolic Murmur, Diastolic Murmur Extremities: Yes: Cool Edema: No - Other Data Labs, Other Data: CBC, BMP 01/01/18 22:00 01/01/18 22:20 INR, PTT INR 0.96 (0.82-1.09) 01/01/18 22:00 Normal sinus rhythm with normal ECG Echo: Pending Problem List - Problems (1) Lumbar disc disease Code(s): M51.9 - UNSP THORACIC, THORACOLUM AND LUMBOSACR INTVRT DISC DISORDER (2) HTN (hypertension) Code(s): I10 - ESSENTIAL (PRIMARY) HYPERTENSION Qualifiers: Hypertension type: essential hypertension Qualified Code(s): I10 - Essential (primary) hypertension (3) Hypercholesterolemia Code(s): E78.00 - PURE HYPERCHOLESTEROLEMIA, UNSPECIFIED (4) Diabetes mellitus Code(s): E11.9 - TYPE 2 DIABETES MELLITUS WITHOUT COMPLICATIONS Qualifiers: Diabetes mellitus type: type 2 Diabetes mellitus skilled nursing insulin use: without watermelon inspector use Diabetes mellitus complication status: without complication Qualified Code(s): E11.9 - Type 2 diabetes mellitus without complications (5) Encounter for pre-operative cardiovascular clearance Code(s): Z01.810 - ENCOUNTER FOR PREPROCEDURAL CARDIOVASCULAR EXAMINATION Assessment/Plan 1. Lumbar disc disease 2. HTN 3. Hypercholesterolemia 4. DM (type II) 5. Family history of hypertrophic cardiomyopathy PLAN: 1. No absolute contraindication for surgery in view of absence of ischemic symptoms, decompensated congestive heart failure or malignant arrhythmias. Echocardiography does not reveal evidence of hypertrophic obstructive cardiomyopathy 2. Continue Metoprolol and Quinipril 3. Statin therapy Further plans are to follow Zak Abebe MD
[2018-01-03] MEDS ORDERED: ROCURONIUM BROMIDE 50 MG/5 ML VIAL ONE ×2 (14:12→15:32)
[2018-01-03] MEDS ORDERED: PROPOFOL 20 ML ONE (14:12)
[2018-01-03] MEDS ORDERED: MIDAZOLAM HCL 2 MG/2 ML SINGLE DOSE VIAL ONE (14:12)
[2018-01-03] MEDS ORDERED: LIDOCAINE HCL/PF 2% SDV 5ML VIAL ONE (14:13)
[2018-01-03] MEDS ORDERED: GENTAMICIN SO4 80 MG/2 ML VIAL ONE (14:16)
[2018-01-03] MEDS ORDERED: THROMBIN (BOVINE) 5,000 UNIT VIAL TP ONE ×2 (14:16→16:12)
[2018-01-03] MEDS ORDERED: VANCOMYCIN 1,000 MG VIAL (RESTRICTED TO ID ONLY) ONE ×2 (14:16→15:34)
[2018-01-03] MEDS ORDERED: DEXAMETHASONE SOD PHOSPHATE 4 MG/1 ML VIAL IVPUSH ONE (14:36)
[2018-01-03] MEDS ORDERED: ONDANSETRON 4 MG/2 ML VIAL IVPUSH PRN (14:36)
[2018-01-03] MEDS ORDERED: PROMETHAZINE HCL 25 MG/1 ML VIAL IVPB PRN ×2 (14:36→19:37)
[2018-01-03] MEDS ORDERED: HYDROmorphone *PCA* 10MG/50ML DISP.SYRIN PCA SCH ×2 (14:45→19:37)
[2018-01-03] MEDS ORDERED: LACTATED RINGERS SOLUTION 1,000 ML IV SCH (14:45)
[2018-01-03] MEDS ORDERED: ceFAZolin SODIUM 1 GM VIAL ONE ×2 (15:21→23:30)
[2018-01-03] MEDS ORDERED: VANCOMYCIN 1,000 MG VIAL (RESTRICTED TO ID ONLY) IVPB ONE (15:25)
[2018-01-03] MEDS ORDERED: SODIUM CHLORIDE 0.9% P/F 10 ML VIAL IJ ONE (15:34)
[2018-01-03] MEDS ORDERED: ceFAZolin SODIUM 1 GM VIAL IVPB ONE (15:35)
[2018-01-03] MEDS ORDERED: DEXAMETHASONE SOD PHOSPHATE 4 MG/1 ML VIAL ONE (15:38)
[2018-01-03] MEDS ORDERED: BUPIVACAINE HCL/PF 0.5% (5MG/ML) 10 ML VIAL ONE (16:16)
--- NOTE | 2018-01-03 16:41 | ECHO ---
Name: MARSHALL SANCHEZ Exam:Adult Echocardiogram Study Date: 01/03/2018 09:39 AM Reason For Study: Cardiomyopathy Height: 65 in Weight: 216 lb BSA: 2.0 m2 MMode/2D Measurements & Calculations IVSd: 1.3 cm Ao root diam: 2.8 cm EDV(Teich): 61.9 ml LVIDd: 3.8 cm LA dimension: 3.6 cm LVPWd: 1.0 cm Ao root area: 6.1 cm2 Doppler Measurements & Calculations MV E max arturo: 59.7 cm/sec MV dec time: 0.20 sec Lat E/e': 6.2 MV A max arturo: 105.7 cm/sec MV E/A: 0.56 Med E/e': 10.0 Procedure A complete two-dimensional transthoracic echocardiogram was performed (2D, M-mode, Doppler and color flow Doppler). Left Ventricle There is mild concentric left ventricular hypertrophy. The left ventricle is normal in size. Left pranav tricular systolic function is normal. Ejection Fraction = 60%. Patient is in normal sinus rhythm. Grade I atkinson tolic dysfunction, (abnormal relaxation pattern). No regional wall motion abnormalities noted. Right Ventricle The right ventricle is not well visualized. Atria The left atrial size is normal. Mitral Valve The mitral valve is grossly normal. There is trace mitral regurgitation. Tricuspid Valve The tricuspid valve is not well visualized. There is trace tricuspid regurgitation. There was insuffi cient TR detected to calculate RV systolic pressure. Aortic Valve The aortic valve is not well visualized. No hemodynamically significant valvular aortic stenosis. Pulmonic Valve The pulmonic valve is not well visualized. Great Vessels The aortic root is normal size. Interpretation Summary There is mild concentric left ventricular hypertrophy. Left ventricular systolic function is normal. The left atrial size is normal. Grade I diastolic dysfunction, (abnormal relaxation pattern). There is trace mitral regurgitation. There is trace tricuspid regurgitation. There was insufficient TR detected to calculate RV systolic pressure. No hemodynamically significant valvular aortic stenosis. MD Edvin Rahman 01/03/2018 04:40 PM
[2018-01-03] MEDS ORDERED: ACETAMINOPHEN INJECTION 100 ML IVPB ONE (17:15)
[2018-01-03] MEDS ORDERED: BUPIVACAINE HCL/PF (5 MG/ML) 30 ML VIAL IJ ONE (17:41)
[2018-01-03] MEDS ORDERED: GLYCOPYRROLATE 0.2 MG/1 ML VIAL ONE ×2 (17:47→17:48)
[2018-01-03] MEDS ORDERED: NEOSTIGMINE METHYLSULFATE 0.5 MG/ML - 10 ML MDV ONE (17:48)
[2018-01-03] MEDS ORDERED: METOPROLOL TARTRATE 5 MG/5 ML VIAL ONE (18:10)
[2018-01-03] MEDS ORDERED: HYDROmorphone *PCA* 10MG/50ML DISP.SYRIN PCA ONE ×2 (18:20→18:25)
--- NOTE | 2018-01-03 19:20 | OP ---
Operative Note - Note: Operative Date: 01/03/18 Pre-Operative Diagnosis: HNP at L2-L3 level, degenerative disc disease with Lower extremity radiculopathy Operation: Laminectomy and decompression of L2-L3 with microsurgical discectomy and interobody cage and posterior fusion Post-Operative Diagnosis: Same as Pre-op Surgeon: Victoriano Rubalcava Director Of Operations For Therapy: Raphael Toro Anesthesiologist/SKIP LOAD DRIVER: Galdino Schulte Anesthesia: General Estimated Blood Loss (mls): 280 Drains & Tubes with Location: j/p at right lumbar paravertebral Fluid Volume Replaced (mls): 1,300 Operative Report Dictated: Yes
--- NOTE | 2018-01-03 19:31 | SURG ---
Surgery Corporate Physical Security Supervisor Note Corporate Physical Security Supervisor: Raphael Toro PA-C Date of Service: 01/03/18 Diagnosis: HNP at L2-L3 with DDD and LE radiculopathy Procedure: Laminectomy and decompression of L2-L3 with microsurgical discectomy and interobody cage and posterior fusion I was present for the entirety of the operative procedure. For further detail, please refer to operative report. Visit type - Case Type Case Type: ED Admission - Emergency Emergency Visit: Yes ED Registration Date: 01/02/18 Care time: The patient presented to the Emergency Department on the above date and was hospitalized for further evaluation of their emergent condition. - New patient This patient is new to me today: Yes Date on this admission: 01/03/18
[2018-01-03] MEDS ORDERED: ONDANSETRON 4 MG/2 ML VIAL IVPB PRN (19:37)
[2018-01-03] MEDS: SODIUM CHLORIDE 1,000 ML IV SCH (20:30)
[2018-01-03] MEDS ORDERED: CEFAZOLIN 1 GM in DEXTROSE 5%-WATER - 50 ML IVPB SCH (23:30)
[2018-01-03] MEDS ORDERED: DEXTROSE 5%-WATER - 50 ML IVPB ONE (23:31)
[2018-01-03] MEDS: DOCUSATE SODIUM 100 MG CAPSULE (FP) PO SCH (23:36)
[2018-01-03] MEDS: ATORVASTATIN CA 20 MG TABLET (FP) PO SCH (23:36)
[2018-01-03] MEDS: QUINAPRIL HCL 10 MG TABLET (FP) PO SCH (23:37)
[2018-01-03] MEDS: INSULIN (LEVEMIR) 100 UNITS/ML UNITS SQ SCH (23:49)
[2018-01-04] MEDS: CEFAZOLIN 1 GM in DEXTROSE 5%-WATER - 50 ML IVPB SCH ×3 (01:06→17:48)
[2018-01-04] MEDS: DEXAMETHASONE SOD PHOSPHATE 4 MG/1 ML VIAL IVPUSH SCH ×4 (03:06→20:50)
[2018-01-04] MEDS: DOCUSATE SODIUM 100 MG CAPSULE (FP) PO SCH ×3 (06:07→22:09)
[2018-01-04] MEDS: HEPARIN NA (PORCINE) 5,000 UNITS/ML 1ML VIAL SQ SCH ×3 (06:10→22:09)
[2018-01-04] MEDS: INSULIN SLIDING SCALE (NOVOLOG) 1 VIAL SQ SCH ×4 (06:19→22:13)
[2018-01-04] MEDS: SODIUM CHLORIDE 1,000 ML IV SCH (06:43)
[2018-01-04 08:39] LABS: HEMOGLOBIN 11.9 GM/dL (10.7-15.3); MCH 29.5 pg (25.7-33.7); MCHC 32.9 g/dl (32.0-36.0); MEAN CELL VOLUME 89.5 fl (80-96); MEAN PLT VOLUME 10.1 fl (7.5-11.1); PLATELET COUNT 244 K/MM3 (134-434); RBC 4.03 M/mm3 (3.60-5.2); RDW 13.1 % (11.6-15.6)
[2018-01-04] MEDS ORDERED: ACETAMINOPHEN 1000 MG/100 ML VIAL (NON FORMULARY) IVPB PRN (08:53)
[2018-01-04] MEDS ORDERED: HYDROmorphone HCL CARPU-JECT 1 MG/1 ML DISP.SYRIN IVPB PRN (08:54)
[2018-01-04 08:55] LABS: ANION GAP 8 (8-16); BLOOD UREA NITROGEN 31 mg/dL (7-18); CALCIUM 9.1 mg/dL (8.5-10.1); CHLORIDE 103 mmol/L (98-107); CO2 24 mmol/L (21-32); CREATININE 0.9 mg/dL (0.55-1.02); POTASSIUM 4.6 mmol/L (3.5-5.1); SODIUM 135 mmol/L (136-145)
--- NOTE | 2018-01-04 08:59 | PN ---
Progress Note (short form) - Note Progress Note: Post op day#1.S/P L2-L3 Laminectomy with decompression,instrumentation,fusion and interbody cage placement under Ga uneventful.Patient stable and c/o pain score of 2-3/10 on Dilaudid [place] studies professor.PATIENT SERVICES TECHNICIAN is DC today and patient put on PRN pain medication.No any anesthesia related problem.Patient DC from the anesthesia care.
[2018-01-04 09:37] LABS: GLUCOSE,RANDOM 301 mg/dL (74-106)
--- NOTE | 2018-01-04 09:44 | PN ---
Progress Note (short form) - Note Progress Note: surgery POD #1 Laminectomy and decompression of L2-L3 with microsurgical discectomy and interobody cage and posterior fusion. Patient seen and examined at bedside. Patient states she has minimal pain and the pain in her left leg has fully resolved. She is not using her MANAGER HUMAN RESOURCES and tolerating her diet. She denies any C/P, SOB, N/V/ Fever, chills or new radicular pain or paresthesias. Vital Signs Temp 98.5 F 01/04/18 06:40 Pulse 87 01/04/18 06:40 Resp 20 01/04/18 06:40 BP 135/75 01/04/18 06:40 Pulse Ox 100 01/04/18 01:00 Intake & Output 01/03/18 01/03/18 01/04/18 11:59 23:59 11:59 Intake Total 1650 Output Total 1350 500 Balance 300 -500 Intake: IV 1650 Output: Drainage 100 50 Right Back 40 50 Urine 1000 450 Cox 100 450 Estimated Blood Loss 250 Other: Voiding Method Toilet Indwelling Catheter Indwelling Catheter # Unmeasured Voids Void 1 Bowel Movement No CBC, BMP 01/04/18 06:30 01/04/18 06:30 PE: A&Ox3, NAD unlabored resp on RA lumbar spine. dressing C/D/I with no evidence of d/c, surrounding tissue intact with no erythema, j/p drain in good position with SS d/c B/L LE compartments soft, supple and non-tender with +2 pedal pulses. Problem List - Problems (1) Lumbar disc disease Assessment/Plan: s/p L2-L3 decompression with interbody cage fusion doing well. Plan: 1) TLSO brace when OOB 2) OOB as tolerated 3) DVT and GI prophylaxis 4) Continue Ancef while drain is in 5) D/c planning Code(s): M51.9 - UNSP THORACIC, THORACOLUM AND LUMBOSACR INTVRT DISC DISORDER
[2018-01-04] MEDS ORDERED: PT OWN MED DRAWER 7, Y5N ONE ×3 (10:15→11:58)
[2018-01-04] MEDS ORDERED: ceFAZolin SODIUM 1 GM VIAL ONE ×2 (10:16→17:41)
[2018-01-04] MEDS ORDERED: DEXTROSE 5%-WATER - 50 ML IVPB ONE ×2 (10:16→17:42)
[2018-01-04] MEDS: FOLIC ACID 1 MG TABLET (FP) PO SCH (10:43)
[2018-01-04] MEDS: PANTOPRAZOLE SODIUM 40 MG VIAL IVPUSH SCH (10:43)
[2018-01-04] MEDS: METOPROLOL TARTRATE 50 MG TABLET (FP) PO SCH (10:43)
[2018-01-04] MEDS: FERROUS SO4 325 MG TABLET (FP) PO SCH (10:44)
[2018-01-04] MEDS ORDERED: INSULIN (NOVOLOG) ASPART 100 UNITS/ML 10ML VIAL ONE (12:45)
[2018-01-04] MEDS: ACETAMINOPHEN 325 MG TABLET (FP) PO PRN (17:23)
--- NOTE | 2018-01-04 17:24 | PN ---
Progress Note (short form) - Note Progress Note: Subjective: The patient was seen and examined at the bedside, she states she is feeling better today. Left leg pain resolved. Current Medications Generic Name Dose Route Start Last Admin Trade Name Freq PRN Reason Stop Dose Admin Acetaminophen 650 mg 01/03/18 19:37 Tylenol - PO Q6H PRN Fever Or Pain Level 1-5 Acetaminophen 1,000 mg 01/04/18 08:53 Ofirmev Injection - IVPB Q6H PRN PAIN LEVEL 4 - 6 Atorvastatin Calcium 20 mg 01/03/18 22:00 01/03/18 23:36 Lipitor - PO Not Given HS [facility] Dexamethasone Sodium Phosphate 6 mg 01/04/18 18:00 Decadron Injection - IVPUSH 01/05/18 00:00 Q6H-IV [facility] Diazepam 5 mg 01/03/18 19:37 Valium - PO Q8H PRN MUSCLE SPASMS Diphenhydramine HCl 12.5 mg 01/03/18 19:37 Benadryl Injection - IVPUSH ONCE PRN FOR ITCHING Docusate Sodium 100 mg 01/03/18 22:00 01/04/18 14:13 Colace - PO 100 mg TID [facility] Administration Fentanyl 50 mcg 01/03/18 19:37 Sublimaze Injection - IVPUSH [id number] PRN PAIN-PACU ORDER X 4 DOSES ONLY Ferrous Sulfate 325 mg 01/04/18 10:00 01/04/18 10:44 Feosol - PO 325 mg DAILY [facility] Administration Folic Acid 1 mg 01/04/18 10:00 01/04/18 10:43 Folic Acid - PO 1 mg DAILY [facility] Administration Heparin Sodium (Porcine) 5,000 unit 01/04/18 06:00 01/04/18 14:13 Heparin - SQ 5,000 unit TID [facility] Administration Sodium Chloride 1,000 mls @ 100 mls/hr 01/03/18 19:37 01/04/18 06:43 Normal Saline - IV 100 mls/hr ASDIR [facility] Administration Cefazolin Sodium 1 gm/ 50 mls @ 100 mls/hr 01/04/18 02:00 01/04/18 10:44 Dextrose IVPB 100 mls/hr Q8H-IV [facility] Administration Insulin Aspart 1 vial 01/03/18 22:00 01/04/18 12:11 Novolog Vial Sliding Scale - SQ 6 units ACHS [facility] Administration Protocol Insulin Detemir 35 units 01/03/18 22:00 01/03/18 23:49 Levemir Vial SQ 35 units HS [facility] Administration Melatonin 5 mg 01/03/18 19:37 Melatonin PO HS PRN INSOMNIA Metoprolol Tartrate 50 mg 01/04/18 10:00 01/04/18 10:43 Lopressor - PO 50 mg DAILY [facility] Administration Ondansetron HCl 4 mg 01/03/18 19:37 Zofran Injection IVPB Q8H PRN NAUSEA Oxycodone HCl 10 mg 01/04/18 09:11 Roxicodone - PO Q4H PRN PAIN LEVEL 6-10 Pantoprazole Sodium 40 mg 01/04/18 10:00 01/04/18 10:43 Protonix Iv IVPUSH 40 mg DAILY [facility] Administration Prednisone 20 mg 01/06/18 10:00 Deltasone - PO 01/06/18 22:01 BID [facility] Prednisone 10 mg 01/07/18 10:00 Deltasone - PO 01/07/18 22:01 BID [facility] Prednisone 5 mg 01/08/18 10:00 Deltasone - PO 01/08/18 22:01 BID [facility] Prednisone 5 mg 01/09/18 10:00 Deltasone - PO 01/09/18 10:01 ONCE ONE Prednisone 20 mg 01/05/18 10:00 Deltasone - PO 01/05/18 22:01 TID [facility] Promethazine HCl 12.5 mg 01/03/18 19:37 Phenergan Injection - IVPB Q6H PRN NAUSEA AND/OR VOMITING Quinapril HCl 10 mg 01/03/18 22:00 01/03/18 23:37 Accupril - PO Not Given HS [facility] Objective: Vital Signs Period Temp Pulse Resp BP Sys/Rivera Pulse Ox Last 24 Hr 97.3 F-98.5 F 60-88 16-20 125-161/65-85 98-100 Physical Exam: General: NAD, appears more comfortable Heart: RRR, S1S2 Lungs: CTA bilaterally Abd: Soft, non-tender, non-distended. Normoactive bowel sounds Ext: B/l 2+ DP. Lower extremities both warm Skin: Lumbar dressing, c/d/i CBCD WBC 15.0 K/mm3 (4.0-10.0) H 07/11/18 06:30 RBC 4.03 M/mm3 (3.60-5.2) 01/04/18 06:30 Hgb 11.9 GM/dL (10.7-15.3) 01/04/18 06:30 Hct 36.0 % (32.4-45.2) 01/04/18 06:30 MCV 89.5 fl (80-96) 01/04/18 06:30 MCHC 32.9 g/dl (32.0-36.0) 01/04/18 06:30 RDW 13.1 % (11.6-15.6) 01/04/18 06:30 Plt Count 244 K/MM3 (134-434) 01/04/18 06:30 MPV 10.1 fl (7.5-11.1) 01/04/18 06:30 CMP Sodium 135 mmol/L (136-145) L 01/04/18 06:30 Potassium 4.6 mmol/L (3.5-5.1) 01/04/18 06:30 Chloride 103 mmol/L (98-107) 01/04/18 06:30 Carbon Dioxide 24 mmol/L (21-32) 01/04/18 06:30 Anion Gap 8 (8-16) 01/04/18 06:30 BUN 31 mg/dL (7-18) H 01/04/18 06:30 Creatinine 0.9 mg/dL (0.55-1.02) 01/04/18 06:30 Creat Clearance w eGFR > 60 (>60) 01/04/18 06:30 Random Glucose 301 mg/dL (74-106) H* 01/04/18 06:30 Calcium 9.1 mg/dL (8.5-10.1) 01/04/18 06:30 Total Bilirubin 0.3 mg/dL (0.2-1.0) 01/01/18 22:20 AST 14 U/L (15-37) L 01/01/18 22:20 ALT 24 U/L (12-78) 01/01/18 22:20 Alkaline Phosphatase 70 U/L (45-117) D 01/01/18 22:20 Total Protein 8.4 g/dl (6.4-8.2) H 01/01/18 22:20 Albumin 4.2 g/dl (3.4-5.0) 01/01/18 22:20 CARDIAC ENZYMES Creatine Kinase 68 IU/L (26-192) 01/01/18 22:20 Troponin I < 0.02 ng/ml (0.00-0.05) 01/01/18 22:20 Assessment: This is a 52 year old female with PMHx of NIDDM, HTN, hypercholesterolemia, who presented to the ED with left leg pain x4 weeks. Plan: 1) Left leg pain - Lumbar MRI with L2-3 loss of disc space height, vacuum phenomena noted in the disc space. T2 increased signal intensity of the disc material. Prominent circumferential disc bulge with midline disc extrusion, 6mm caudal extension of the disc in relation to the L2-L3 disc space behind the superior posterior aspect of L3 vertebral body. Central spinal canal stenosis. B/l neural foraminal narrowing - S/p laminectomy and decompression of L2-L3 with microsugical discectomy and interobody cage and posterior fusion on 01/03 - Prednisone taper - Pain management - Continue Ancef until drain removed - Continue to monitor 2) Family history of hypertrophic cardiomyopathy - ECHO reviewed: no evidence of hypertrophic obstructive cardiomyopathy - Appreciate cardiology consult 2) NIDDM - BGM ACHS - ISS ACHS - Levemir 3) HTN - Continue Lopressor 4) F/E/N: - Monitor electrolytes - Diabetic diet 5) Prophylaxis: - Heparin 5,000u sq tid 6) Dispo: - Requires continued inpatient care CODE STATUS: FULL CODE Visit type - Emergency Visit Emergency Visit: Yes ED Registration Date: 01/02/18 Care time: The patient presented to the Emergency Department on the above date and was hospitalized for further evaluation of their emergent condition. - New Patient This patient is new to me today: No - Critical Care Critical Care patient: No
[2018-01-04] MEDS: ATORVASTATIN CA 20 MG TABLET (FP) PO SCH (22:08)
[2018-01-04] MEDS: INSULIN (LEVEMIR) 100 UNITS/ML UNITS SQ SCH (22:13)
[2018-01-04] MEDS: QUINAPRIL HCL 10 MG TABLET (FP) PO SCH (22:19)
[2018-01-04] MEDS: oxyCODONE HCL 5 MG TABLET PO PRN (23:22)
[2018-01-04] MEDS: diazePAM 5 MG TABLET PO PRN (23:22)
[2018-01-05] MEDS ORDERED: ceFAZolin SODIUM 1 GM VIAL ONE ×3 (01:05→18:28)
[2018-01-05] MEDS ORDERED: DEXTROSE 5%-WATER - 50 ML IVPB ONE ×3 (01:05→18:28)
[2018-01-05] MEDS: CEFAZOLIN 1 GM in DEXTROSE 5%-WATER - 50 ML IVPB SCH ×3 (01:37→18:31)
[2018-01-05] MEDS: DOCUSATE SODIUM 100 MG CAPSULE (FP) PO SCH ×3 (06:35→21:24)
[2018-01-05] MEDS: HEPARIN NA (PORCINE) 5,000 UNITS/ML 1ML VIAL SQ SCH ×3 (06:36→21:24)
[2018-01-05] MEDS: INSULIN SLIDING SCALE (NOVOLOG) 1 VIAL SQ SCH ×4 (06:38→21:33)
[2018-01-05] MEDS ORDERED: predniSONE 20 MG TABLET (UD) PO SCH (08:00)
[2018-01-05 09:23] LABS: BASO % 0.1 % (0-2.0); HEMATOCRIT 35.5 % (32.4-45.2); HEMOGLOBIN 11.8 GM/dL (10.7-15.3); LYMPH % 9.6 % (8-40); MCH 29.5 pg (25.7-33.7); MCHC 33.1 g/dl (32.0-36.0); MEAN PLT VOLUME 9.9 fl (7.5-11.1); MONO % 4.9 % (3.8-10.2); NEUT % 85.4 % (42.8-82.8); PLATELET COUNT 229 K/MM3 (134-434); RBC 3.99 M/mm3 (3.60-5.2); WHITE BLOOD COUNT 12.3 K/mm3 (4.0-10.0)
[2018-01-05 09:56] LABS: ALBUMIN 3.1 g/dl (3.4-5.0); ANION GAP 9 (8-16); BLOOD UREA NITROGEN 24 mg/dL (7-18); CALCIUM 9.2 mg/dL (8.5-10.1); CHLORIDE 105 mmol/L (98-107); CO2 25 mmol/L (21-32); CREATININE 0.7 mg/dL (0.55-1.02); GLUCOSE,RANDOM 197 mg/dL (74-106); POTASSIUM 4.7 mmol/L (3.5-5.1); SGOT/AST 13 U/L (15-37); SGPT/ALT 18 U/L (12-78); SODIUM 139 mmol/L (136-145)
[2018-01-05 09:58] LABS: ALK PHOS 54 U/L (45-117); BILIRUBIN,TOTAL 0.5 mg/dL (0.2-1.0); TOT PROT 6.6 g/dl (6.4-8.2)
[2018-01-05] MEDS: METOPROLOL TARTRATE 50 MG TABLET (FP) PO SCH (10:49)
[2018-01-05] MEDS: FERROUS SO4 325 MG TABLET (FP) PO SCH (10:49)
[2018-01-05] MEDS: predniSONE 20 MG TABLET (UD) PO SCH ×3 (10:49→21:25)
[2018-01-05] MEDS: FOLIC ACID 1 MG TABLET (FP) PO SCH (10:49)
[2018-01-05] MEDS: PANTOPRAZOLE SODIUM 40 MG VIAL IVPUSH SCH (10:50)
[2018-01-05] MEDS: ACETAMINOPHEN 325 MG TABLET (FP) PO PRN (10:54)
--- NOTE | 2018-01-05 13:42 | PN ---
Progress Note (short form) - Note Progress Note: Subjective: The patient was seen and examined at the bedside, she states she is feeling better today. Left leg pain resolved. Current Medications Generic Name Dose Route Start Last Admin Trade Name Freq PRN Reason Stop Dose Admin Acetaminophen 650 mg 01/03/18 19:37 01/05/18 10:54 Tylenol - PO 650 mg Q6H PRN Administration Fever Or Pain Level 1-5 Acetaminophen 1,000 mg 01/04/18 08:53 Ofirmev Injection - IVPB Q6H PRN PAIN LEVEL 4 - 6 Atorvastatin Calcium 20 mg 01/03/18 22:00 01/04/18 22:08 Lipitor - PO 20 mg HS [facility] Administration Diazepam 5 mg 01/03/18 19:37 01/04/18 23:22 Valium - PO 5 mg Q8H PRN Administration MUSCLE SPASMS Diphenhydramine HCl 12.5 mg 01/03/18 19:37 Benadryl Injection - IVPUSH ONCE PRN FOR ITCHING Docusate Sodium 100 mg 01/03/18 22:00 01/05/18 06:35 Colace - PO 100 mg TID [facility] Administration Fentanyl 50 mcg 01/03/18 19:37 Sublimaze Injection - IVPUSH [id number] PRN PAIN-PACU ORDER X 4 DOSES ONLY Ferrous Sulfate 325 mg 01/04/18 10:00 01/05/18 10:49 Feosol - PO 325 mg DAILY [facility] Administration Folic Acid 1 mg 01/04/18 10:00 01/05/18 10:49 Folic Acid - PO 1 mg DAILY [facility] Administration Heparin Sodium (Porcine) 5,000 unit 01/04/18 06:00 01/05/18 06:36 Heparin - SQ 5,000 unit TID [facility] Administration Sodium Chloride 1,000 mls @ 100 mls/hr 01/03/18 19:37 01/04/18 06:43 Normal Saline - IV 100 mls/hr ASDIR [facility] Administration Cefazolin Sodium 1 gm/ 50 mls @ 100 mls/hr 01/04/18 02:00 01/05/18 10:43 Dextrose IVPB 100 mls/hr Q8H-IV [facility] Administration Insulin Aspart 1 vial 01/03/18 22:00 01/05/18 12:51 Novolog Vial Sliding Scale - SQ 4 units ACHS [facility] Administration Protocol Insulin Detemir 35 units 01/03/18 22:00 01/04/18 22:13 Levemir Vial SQ 35 units HS [facility] Administration Melatonin 5 mg 01/03/18 19:37 Melatonin PO HS PRN INSOMNIA Metoprolol Tartrate 50 mg 01/04/18 10:00 01/05/18 10:49 Lopressor - PO 50 mg DAILY [facility] Administration Ondansetron HCl 4 mg 01/03/18 19:37 Zofran Injection IVPB Q8H PRN NAUSEA Oxycodone HCl 10 mg 01/04/18 09:11 01/04/18 23:22 Roxicodone - PO 10 mg Q4H PRN Administration PAIN LEVEL 6-10 Pantoprazole Sodium 40 mg 01/04/18 10:00 01/05/18 10:50 Protonix Iv IVPUSH 40 mg DAILY [facility] Administration Prednisone 20 mg 01/06/18 10:00 Deltasone - PO 01/06/18 22:01 BID [facility] Prednisone 10 mg 01/07/18 10:00 Deltasone - PO 01/07/18 22:01 BID [facility] Prednisone 5 mg 01/08/18 10:00 Deltasone - PO 01/08/18 22:01 BID [facility] Prednisone 5 mg 01/09/18 10:00 Deltasone - PO 01/09/18 10:01 ONCE ONE Prednisone 20 mg 01/05/18 10:00 01/05/18 10:49 Deltasone - PO 01/05/18 22:01 20 mg TID [facility] Administration Promethazine HCl 12.5 mg 01/03/18 19:37 Phenergan Injection - IVPB Q6H PRN NAUSEA AND/OR VOMITING Quinapril HCl 10 mg 01/03/18 22:00 01/04/18 22:19 Accupril - PO 10 mg HS [facility] Administration Objective: Vital Signs Period Temp Pulse Resp BP Sys/Rivera Pulse Ox Last 24 Hr 97.3 F-98.5 F 73-79 20-20 100-159/68-95 98 Physical Exam: General: NAD, appears more comfortable Heart: RRR, S1S2 Lungs: CTA bilaterally Abd: Soft, non-tender, non-distended. Normoactive bowel sounds Ext: B/l 2+ DP. Lower extremities both warm Skin: Lumbar dressing, c/d/i CBCD WBC 12.3 K/mm3 (4.0-10.0) H 01/05/18 08:18 RBC 3.99 M/mm3 (3.60-5.2) 01/05/18 08:18 Hgb 11.8 GM/dL (10.7-15.3) 01/05/18 08:18 Hct 35.5 % (32.4-45.2) 01/05/18 08:18 MCV 89.0 fl (80-96) 01/05/18 08:18 MCHC 33.1 g/dl (32.0-36.0) 01/05/18 08:18 RDW 13.0 % (11.6-15.6) 01/05/18 08:18 Plt Count 229 K/MM3 (134-434) 01/05/18 08:18 MPV 9.9 fl (7.5-11.1) 01/05/18 08:18 CMP Sodium 139 mmol/L (136-145) 01/05/18 08:18 Potassium 4.7 mmol/L (3.5-5.1) 01/05/18 08:18 Chloride 105 mmol/L (98-107) 01/05/18 08:18 Carbon Dioxide 25 mmol/L (21-32) 01/05/18 08:18 Anion Gap 9 (8-16) 01/05/18 08:18 BUN 24 mg/dL (7-18) H 01/05/18 08:18 Creatinine 0.7 mg/dL (0.55-1.02) 01/05/18 08:18 Creat Clearance w eGFR > 60 (>60) 01/05/18 08:18 Random Glucose 197 mg/dL (74-106) H 01/05/18 08:18 Calcium 9.2 mg/dL (8.5-10.1) 01/05/18 08:18 Total Bilirubin 0.5 mg/dL (0.2-1.0) 01/05/18 08:18 AST 13 U/L (15-37) L 01/05/18 08:18 ALT 18 U/L (12-78) 01/05/18 08:18 Alkaline Phosphatase 54 U/L (45-117) D 01/05/18 08:18 Total Protein 6.6 g/dl (6.4-8.2) 01/05/18 08:18 Albumin 3.1 g/dl (3.4-5.0) L 01/05/18 08:18 CARDIAC ENZYMES Creatine Kinase 68 IU/L (26-192) 01/01/18 22:20 Troponin I < 0.02 ng/ml (0.00-0.05) 01/01/18 22:20 Assessment: This is a 52 year old female with PMHx of NIDDM, HTN, hypercholesterolemia, who presented to the ED with left leg pain x4 weeks. Plan: 1) Left leg pain - Lumbar MRI with L2-3 loss of disc space height, vacuum phenomena noted in the disc space. T2 increased signal intensity of the disc material. Prominent circumferential disc bulge with midline disc extrusion, 6mm caudal extension of the disc in relation to the L2-L3 disc space behind the superior posterior aspect of L3 vertebral body. Central spinal canal stenosis. B/l neural foraminal narrowing - S/p laminectomy and decompression of L2-L3 with microsugical discectomy and interobody cage and posterior fusion on 01/03 - Prednisone taper - Pain management - Continue Ancef until drain removed (discussed with Dr. Rubalcava, likely remove drain tonight or tomorrow) - Continue to monitor 2) Family history of hypertrophic cardiomyopathy - ECHO reviewed: no evidence of hypertrophic obstructive cardiomyopathy - Appreciate cardiology consult 3) Elevated d-dimer - F/u lower extremity doppler - No evidence of pulmonary embolism 2) NIDDM - BGM ACHS - ISS ACHS - Levemir 3) HTN - Continue Lopressor 4) F/E/N: - Monitor electrolytes - Diabetic diet 5) Prophylaxis: - Heparin 5,000u sq tid 6) Dispo: - Requires continued inpatient care CODE STATUS: FULL CODE Visit type - Emergency Visit Emergency Visit: Yes ED Registration Date: 01/02/18 Care time: The patient presented to the Emergency Department on the above date and was hospitalized for further evaluation of their emergent condition. - New Patient This patient is new to me today: No - Critical Care Critical Care patient: No
[2018-01-05] MEDS: oxyCODONE HCL 5 MG TABLET PO PRN ×2 (15:06→23:15)
[2018-01-05] MEDS: ATORVASTATIN CA 20 MG TABLET (FP) PO SCH (21:24)
[2018-01-05] MEDS: QUINAPRIL HCL 10 MG TABLET (FP) PO SCH (21:25)
[2018-01-05] MEDS: INSULIN (LEVEMIR) 100 UNITS/ML UNITS SQ SCH (21:32)
[2018-01-05] MEDS ORDERED: PT OWN MED DRAWER 7, Y5N ONE (22:15)
[2018-01-05] MEDS: diazePAM 5 MG TABLET PO PRN (23:15)
[2018-01-06] MEDS ORDERED: DEXTROSE 5%-WATER - 50 ML IVPB ONE ×3 (01:12→17:03)
[2018-01-06] MEDS ORDERED: ceFAZolin SODIUM 1 GM VIAL ONE ×3 (01:12→17:03)
[2018-01-06] MEDS: CEFAZOLIN 1 GM in DEXTROSE 5%-WATER - 50 ML IVPB SCH ×3 (01:31→17:08)
[2018-01-06] MEDS ORDERED: PT OWN MED DRAWER 7, Y5N ONE ×2 (05:38→20:52)
[2018-01-06] MEDS: HEPARIN NA (PORCINE) 5,000 UNITS/ML 1ML VIAL SQ SCH ×2 (06:24→13:34)
[2018-01-06] MEDS: DOCUSATE SODIUM 100 MG CAPSULE (FP) PO SCH ×2 (06:24→13:34)
[2018-01-06] MEDS: INSULIN SLIDING SCALE (NOVOLOG) 1 VIAL SQ SCH ×3 (06:27→16:55)
[2018-01-06] MEDS: SODIUM CHLORIDE 1,000 ML IV SCH ×2 (07:42→07:43)
[2018-01-06 07:56] LABS: BASO % 0.1 % (0-2.0); HEMOGLOBIN 12.6 GM/dL (10.7-15.3); LYMPH % 16.2 % (8-40); MCH 29.9 pg (25.7-33.7); MCHC 33.9 g/dl (32.0-36.0); MEAN CELL VOLUME 88.3 fl (80-96); MONO % 5.8 % (3.8-10.2); NEUT % 77.9 % (42.8-82.8); PLATELET COUNT 239 K/MM3 (134-434); RBC 4.19 M/mm3 (3.60-5.2); RDW 12.7 % (11.6-15.6); WHITE BLOOD COUNT 9.4 K/mm3 (4.0-10.0)
[2018-01-06] MEDS ORDERED: predniSONE 20 MG TABLET (UD) PO SCH ×2 (08:00→10:00)
[2018-01-06 08:13] LABS: ALBUMIN 3.2 g/dl (3.4-5.0); ANION GAP 8 (8-16); BLOOD UREA NITROGEN 22 mg/dL (7-18); CALCIUM 9.4 mg/dL (8.5-10.1); CHLORIDE 101 mmol/L (98-107); CO2 28 mmol/L (21-32); GLUCOSE,RANDOM 202 mg/dL (74-106); POTASSIUM 4.4 mmol/L (3.5-5.1); SODIUM 137 mmol/L (136-145)
[2018-01-06 08:17] LABS: ALK PHOS 53 U/L (45-117); BILIRUBIN,TOTAL 0.2 mg/dL (0.2-1.0); CREATININE 0.6 mg/dL (0.55-1.02); SGOT/AST 14 U/L (15-37); SGPT/ALT 18 U/L (12-78); TOT PROT 6.8 g/dl (6.4-8.2)
[2018-01-06] MEDS: PANTOPRAZOLE SODIUM 40 MG VIAL IVPUSH SCH (10:21)
[2018-01-06] MEDS: FOLIC ACID 1 MG TABLET (FP) PO SCH (10:21)
[2018-01-06] MEDS: FERROUS SO4 325 MG TABLET (FP) PO SCH (10:21)
[2018-01-06] MEDS: METOPROLOL TARTRATE 50 MG TABLET (FP) PO SCH (10:21)
--- NOTE | 2018-01-06 11:38 | PN ---
Progress Note (short form) - Note Progress Note: Subjective: The patient was seen and examined at the bedside, she states she is feeling better today. Awaiting SNF placement Current Medications Generic Name Dose Route Start Last Admin Trade Name Freq PRN Reason Stop Dose Admin Acetaminophen 650 mg 01/03/18 19:37 01/05/18 10:54 Tylenol - PO 650 mg Q6H PRN Administration Fever Or Pain Level 1-5 Acetaminophen 1,000 mg 01/04/18 08:53 Ofirmev Injection - IVPB Q6H PRN PAIN LEVEL 4 - 6 Atorvastatin Calcium 20 mg 01/03/18 22:00 01/05/18 21:24 Lipitor - PO 20 mg HS [facility] Administration Diazepam 5 mg 01/03/18 19:37 01/05/18 23:15 Valium - PO 5 mg Q8H PRN Administration MUSCLE SPASMS Diphenhydramine HCl 12.5 mg 01/03/18 19:37 Benadryl Injection - IVPUSH ONCE PRN FOR ITCHING Docusate Sodium 100 mg 01/03/18 22:00 01/06/18 06:24 Colace - PO 100 mg TID [facility] Administration Fentanyl 50 mcg 01/03/18 19:37 Sublimaze Injection - IVPUSH [id number] PRN PAIN-PACU ORDER X 4 DOSES ONLY Ferrous Sulfate 325 mg 01/04/18 10:00 01/06/18 10:21 Feosol - PO 325 mg DAILY [facility] Administration Folic Acid 1 mg 01/04/18 10:00 01/06/18 10:21 Folic Acid - PO 1 mg DAILY [facility] Administration Heparin Sodium (Porcine) 5,000 unit 01/04/18 06:00 01/06/18 06:24 Heparin - SQ 5,000 unit TID [facility] Administration Sodium Chloride 1,000 mls @ 100 mls/hr 01/03/18 19:37 01/06/18 07:43 Normal Saline - IV Not Given ASDIR [facility] Cefazolin Sodium 1 gm/ 50 mls @ 100 mls/hr 01/04/18 02:00 01/06/18 10:21 Dextrose IVPB 100 mls/hr Q8H-IV [facility] Administration Insulin Aspart 1 vial 01/03/18 22:00 01/06/18 06:27 Novolog Vial Sliding Scale - SQ 4 units ACHS [facility] Administration Protocol Insulin Detemir 35 units 01/03/18 22:00 01/05/18 21:32 Levemir Vial SQ 35 units HS [facility] Administration Melatonin 5 mg 01/03/18 19:37 Melatonin PO HS PRN INSOMNIA Metoprolol Tartrate 50 mg 01/04/18 10:00 01/06/18 10:21 Lopressor - PO 50 mg DAILY [facility] Administration Ondansetron HCl 4 mg 01/03/18 19:37 Zofran Injection IVPB Q8H PRN NAUSEA Oxycodone HCl 10 mg 01/04/18 09:11 01/05/18 23:15 Roxicodone - PO 10 mg Q4H PRN Administration PAIN LEVEL 6-10 Pantoprazole Sodium 40 mg 01/04/18 10:00 01/06/18 10:21 Protonix Iv IVPUSH 40 mg DAILY [facility] Administration Prednisone 20 mg 01/06/18 10:00 01/06/18 10:21 Deltasone - PO 01/06/18 22:01 20 mg BID [facility] Administration Prednisone 10 mg 01/07/18 10:00 Deltasone - PO 01/07/18 22:01 BID [facility] Prednisone 5 mg 01/08/18 10:00 Deltasone - PO 01/08/18 22:01 BID [facility] Prednisone 5 mg 01/09/18 10:00 Deltasone - PO 01/09/18 10:01 ONCE ONE Promethazine HCl 12.5 mg 01/03/18 19:37 Phenergan Injection - IVPB Q6H PRN NAUSEA AND/OR VOMITING Quinapril HCl 10 mg 01/03/18 22:00 01/05/18 21:25 Accupril - PO 10 mg HS [facility] Administration Objective: Vital Signs Period Temp Pulse Resp BP Sys/Rivera Pulse Ox Last 24 Hr 97.4 F-98.4 F 70-76 17-18 150-167/86-95 96 Physical Exam: General: NAD, appears more comfortable Heart: RRR, S1S2 Lungs: CTA bilaterally Abd: Soft, non-tender, non-distended. Normoactive bowel sounds Ext: B/l 2+ DP. Lower extremities both warm Skin: Lumbar dressing, c/d/i CBCD WBC 9.4 K/mm3 (4.0-10.0) 01/06/18 06:00 RBC 4.19 M/mm3 (3.60-5.2) 01/06/18 06:00 Hgb 12.6 GM/dL (10.7-15.3) 01/06/18 06:00 Hct 37.0 % (32.4-45.2) 01/06/18 06:00 MCV 88.3 fl (80-96) 01/06/18 06:00 MCHC 33.9 g/dl (32.0-36.0) 01/06/18 06:00 RDW 12.7 % (11.6-15.6) 01/06/18 06:00 Plt Count 239 K/MM3 (134-434) 01/06/18 06:00 MPV 10.0 fl (7.5-11.1) 01/06/18 06:00 CMP Sodium 137 mmol/L (136-145) 01/06/18 06:00 Potassium 4.4 mmol/L (3.5-5.1) 01/06/18 06:00 Chloride 101 mmol/L (98-107) 01/06/18 06:00 Carbon Dioxide 28 mmol/L (21-32) 01/06/18 06:00 Anion Gap 8 (8-16) 01/06/18 06:00 BUN 22 mg/dL (7-18) H 01/06/18 06:00 Creatinine 0.6 mg/dL (0.55-1.02) 01/06/18 06:00 Creat Clearance w eGFR > 60 (>60) 01/06/18 06:00 Random Glucose 202 mg/dL (74-106) H 01/06/18 06:00 Calcium 9.4 mg/dL (8.5-10.1) 01/06/18 06:00 Total Bilirubin 0.2 mg/dL (0.2-1.0) 01/06/18 06:00 AST 14 U/L (15-37) L 01/06/18 06:00 ALT 18 U/L (12-78) 01/06/18 06:00 Alkaline Phosphatase 53 U/L (45-117) 01/06/18 06:00 Total Protein 6.8 g/dl (6.4-8.2) 01/06/18 06:00 Albumin 3.2 g/dl (3.4-5.0) L 01/06/18 06:00 CARDIAC ENZYMES Creatine Kinase 68 IU/L (26-192) 01/01/18 22:20 Troponin I < 0.02 ng/ml (0.00-0.05) 01/01/18 22:20 Assessment: This is a 52 year old female with PMHx of NIDDM, HTN, hypercholesterolemia, who presented to the ED with left leg pain x4 weeks. Plan: 1) Left leg pain - Lumbar MRI with L2-3 loss of disc space height, vacuum phenomena noted in the disc space. T2 increased signal intensity of the disc material. Prominent circumferential disc bulge with midline disc extrusion, 6mm caudal extension of the disc in relation to the L2-L3 disc space behind the superior posterior aspect of L3 vertebral body. Central spinal canal stenosis. B/l neural foraminal narrowing - S/p laminectomy and decompression of L2-L3 with microsugical discectomy and interobody cage and posterior fusion on 01/03 - Prednisone taper - Pain management - Continue Ancef until drain removed - Continue to monitor 2) Family history of hypertrophic cardiomyopathy - ECHO reviewed: no evidence of hypertrophic obstructive cardiomyopathy - Appreciate cardiology consult 3) Elevated d-dimer - F/u lower extremity doppler - No evidence of pulmonary embolism 2) NIDDM - BGM ACHS - ISS ACHS - Levemir 3) HTN - Continue Lopressor 4) F/E/N: - Monitor electrolytes - Diabetic diet 5) Prophylaxis: - Heparin 5,000u sq tid 6) Dispo: - Requires continued inpatient care CODE STATUS: FULL CODE Visit type - Emergency Visit Emergency Visit: Yes ED Registration Date: 01/02/18 Care time: The patient presented to the Emergency Department on the above date and was hospitalized for further evaluation of their emergent condition. - New Patient This patient is new to me today: No - Critical Care Critical Care patient: No
[2018-01-06] MEDS: ACETAMINOPHEN 325 MG TABLET (FP) PO PRN (11:53)
[2018-01-06] MEDS ORDERED: POLYETHYLENE GLYCOL 3350 119 GM BTL PO SCH (13:45)
--- NOTE | 2018-01-06 13:56 | PN ---
Progress Note (short form) - Note Progress Note: 52yo F s/p L2/3 laminectomy and fusion, seen sitting up at bedside. Pt denied any severe back pain or leg weakness. Pt only complaining of decreased appetite. PE: Gen: A&O x3 Resp: breathing comfortably Ext: no weakness or numbness Back: lumbar incision is clean with no erythema, drain in place with serosanguinous drainage. Problem List - Problems (1) Lumbar disc disease Assessment/Plan: Plan -drain pulled at bedside which pt tolerated well -Pt cleared from neurosurgery for discharge home -as per medicine recs for decreased appetite. Code(s): M51.9 - UNSP THORACIC, THORACOLUM AND LUMBOSACR INTVRT DISC DISORDER
--- NOTE | 2018-01-06 16:10 | DS ---
Physical Examination Vital Signs: Vital Signs Temperature 97.4 F L 01/06/18 08:50 Pulse Rate 70 01/06/18 08:50 Respiratory Rate 17 01/06/18 08:50 Blood Pressure 155/94 01/06/18 08:50 O2 Sat by Pulse Oximetry (%) 96 01/05/18 21:00 Findings/Remarks: Physical Exam: General: NAD, appears more comfortable Heart: RRR, S1S2 Lungs: CTA bilaterally Abd: Soft, non-tender, non-distended. Normoactive bowel sounds Ext: B/l 2+ DP. Lower extremities both warm Skin: Lumbar dressing, c/d/i Labs: CBC, BMP 01/06/18 06:00 01/06/18 06:00 Discharge Summary Reason For Visit: OCCLUSION OF ARTERY OF LOWER EXTREMITY Current Active Problems Arterial occlusion, lower extremity (Acute) Diabetes mellitus (Acute) Encounter for pre-operative cardiovascular clearance (Acute) HTN (hypertension) (Acute) Hypercholesterolemia (Acute) Lumbar disc disease (Acute) Hospital Course: This is a 52 year old female with PMHx of NIDDM, HTN, hypercholesterolemia, who presented to the ED with left leg pain x4 weeks. Plan: 1) Left leg pain - Lumbar MRI with L2-3 loss of disc space height, vacuum phenomena noted in the disc space. T2 increased signal intensity of the disc material. Prominent circumferential disc bulge with midline disc extrusion, 6mm caudal extension of the disc in relation to the L2-L3 disc space behind the superior posterior aspect of L3 vertebral body. Central spinal canal stenosis. B/l neural foraminal narrowing - S/p laminectomy and decompression of L2-L3 with microsugical discectomy and interobody cage and posterior fusion on 01/03 - Prednisone taper - Pain management - Continue Ancef until drain removed - Continue to monitor 2) Family history of hypertrophic cardiomyopathy - ECHO reviewed: no evidence of hypertrophic obstructive cardiomyopathy - Appreciate cardiology consult 3) Elevated d-dimer - Lower extremity doppler negative for DVT - No evidence of pulmonary embolism 2) NIDDM - BGM ACHS - ISS ACHS - Levemir 3) HTN - Continue Lopressor Condition: Improved - Instructions Diet, Activity, Other Instructions: Post Operative Instructions Physical Activity Resume your normal everyday activity as tolerated. No heavy lifting or exercise until seen by your surgeon. You may walk unlimited amounts and climb stairs. You may resume driving the car when you feel safe and comfortable behind the wheel and you are no longer wearing your brace. Do not operate a vehicle while taking narcotic medication. Brace If you had back surgery, wear TLSO Brace whenever out of bed. May remove to sleep and shower. Wound Care Keep your incision clean, dry and covered at all times. Apply an occlusive dressing (Saran wrap or Tegaderm) when showering to avoid getting your incision wet. Do not submerge incision or apply ointments or creams. The sarah will be removed in the office in 10-14 days post-op. Diet There are no dietary restrictions. Eat healthy, high-fiber foods. Drink 6-8 glasses of liquid each day. This will assist in keeping your bowels regular. Pain Management You may take Tylenol or acetaminophen. Any pain prescription medication ordered should be taken as prescribed for moderate to severe pain. Call Dr Massey for any of the following: Severe pain not relieved by medication Fever of 101 or higher Excessive bleeding or drainage on dressing Inability to urinate Any chest pain or shortness of breath, seek Emergency Care. Call the office to confirm a post-operative appointment 7-10 days post-op Victoriano Rubalcava MD [facility] [address] [place] [address]. [place] [address] 5 Day Prednisone taper started 01/06/18 schedule as follows: Prednisone 20mg tab BID x 1 day Prednisone 10mg tab BID x 1 day Prednisone 5mg tab BID x 1 day Prednisone 5mg tab once x 1 day Referrals: Victoriano Rubalcava MD, [facility] [Staff Physician] - (Please follow-up with surgery for a post-operative visit within 1 week. ) Justin Quintana MD [Staff Physician] - 1 Week Zak Abebe MD [Staff Physician] - 1 Week Disposition: [facility] - Home Medications Comprehensive Discharge Medication List: Ambulatory Orders Metoprolol Tartrate [Lopressor -] 50 mg PO DAILY 05/22/12 Quinapril HCl [Accupril -] 10 mg PO HS 05/22/12 Simvastatin [Zocor -] 40 mg PO HS 05/22/12 metFORMIN HCL [Glucophage] 500 mg PO BID 05/22/12 Insulin (Levemir) [Levemir Vial] 35 unit SQ HS 10/28/14 Diazepam [Valium] 5 mg PO Q8H PRN #12 tablet MDD 15mg 12/31/17 Acetaminophen [Tylenol .Regular Strength -] 650 mg PO Q6H PRN tablet 01/06/18 Docusate Sodium [Colace -] 100 mg PO TID capsule 01/06/18 Ferrous Sulfate [Feosol] 325 mg PO DAILY ud 01/06/18 Folic Acid - 1 mg PO DAILY tablet 01/06/18 Heparin - 5,000 unit SQ TID vial 01/06/18 Melatonin 5 mg PO HS PRN tab 01/06/18 Polyethylene Glycol 3350 [Miralax 119 gm Btl -] 17 gm PO DAILY bottle 01/06/18 Prednisone 5 mg PO DAILY #1 tab.ds.pk 01/06/18 Sennosides [Senna -] 2 tab PO HS tablet 01/06/18 oxyCODONE HCL [Roxicodone -] 10 mg PO Q4H PRN tablet MDD 60mg 01/06/18 predniSONE [Deltasone -] 5 mg PO BID tablet 01/06/18 predniSONE [Deltasone -] 10 mg PO BID #0 tablet 01/06/18 predniSONE [Deltasone -] 20 mg PO BID tablet 01/06/18 This patient is new to me today: No Emergency Visit: Yes ED Registration Date: 01/02/18 Care time: The patient presented to the Emergency Department on the above date and was hospitalized for further evaluation of their emergent condition. Critical Care patient: No - Discharge Referral Referred to [facility] Yes Physician Referral: Justin Martinez MD ([facility])
[2018-01-06 16:29] VITALS: BP 147/97; PULSE 74; TEMP 98.6
[2018-01-06] MEDS ORDERED: INSULIN (NOVOLOG) ASPART 100 UNITS/ML 10ML VIAL ONE (16:52)
[2018-01-06] MEDS: QUINAPRIL HCL 10 MG TABLET (FP) PO SCH (21:05)
[2018-01-06] MEDS ORDERED: SENNOSIDES 8.6MG TABLET (FP) PO SCH (22:00)
[2018-01-07] MEDS ORDERED: predniSONE 10 MG TABLET (UD) PO SCH (10:00)
[2018-01-08] MEDS ORDERED: predniSONE 5 MG TABLET (UD) PO SCH (10:00)
[2018-01-09] MEDS ORDERED: predniSONE 5 MG TABLET (UD) PO ONE (10:00)
== END 2018-01-06 21:31 | DRG 460 ==
LOC: JER 19:47 → JERBED 01-02 03:11 → OBSVTOIN 01-02 03:46 → J5S 01-02 04:05 → JSAMEDAYSX 01-03 16:16 → J8W 01-03 18:00
PROVIDERS: ADMIT Internal Medicine; ATTEND Registered Nurse
PROC: 0JX70ZZ Transfer Back Subcutaneous Tissue and Fascia, Open Approach (ICD-10-PCS; 2018-01-03)
PROC: 0SG00AJ Fusion of Lumbar Vertebral Joint with Interbody Fusion Device, Posterior Approach, Anterior Column, Open Approach (ICD-10-PCS; principal; 2018-01-03 11:00)
DX: M51.26 Other intervertebral disc displacement, lumbar region (principal); N17.9 Acute kidney failure, unspecified; I70.92 Chronic total occlusion of artery of the extremities; M48.061 Spinal stenosis, lumbar region without neurogenic claudication; M79.605 Pain in left leg; E78.00 Pure hypercholesterolemia, unspecified; I10 Essential (primary) hypertension; E11.9 Type 2 diabetes mellitus without complications; E86.0 Dehydration; E83.52 Hypercalcemia; Z82.49 Family history of ischemic heart disease and other diseases of the circulatory system; E66.3 Overweight; Z68.36 Body mass index [BMI] 36.0-36.9, adult
CPT/HCPCS: 36415; 72131-TC; 72148-TC; 73523-TC-FY; 73552-TC-LT-FY; 73562-TC-LT-FY; 75635-TC; 76000-TC-FY; 80048; 80053; 82550; 82947; 82962; 84484; 85025; 85027; 85379; 85610; 85730; 93005; 93010; 93306-TC; 93970-TC; 94760; 97116-GP; 97161-GP; 99283-25; G0378; J0131; J1644; J7030

== ENCOUNTER 2018-02-25 11:45 | Inpatient (IN) | payer OTHER ==
[2018-02-25 13:39] LABS: VENOUS PC02 40.8 mmHg (38-52); VENOUS PH 7.4 (7.32-7.42); VENOUS PO2 24.7 mmHg (28-48)
[2018-02-25 13:42] LABS: BASO % 0.8 % (0-2.0); EOS % 3.1 % (0-4.5); HEMATOCRIT 37.7 % (32.4-45.2); HEMOGLOBIN 12.6 GM/dL (10.7-15.3); LYMPH % 19.1 % (8-40); MCH 29.7 pg (25.7-33.7); MCHC 33.4 g/dl (32.0-36.0); MEAN PLT VOLUME 11.1 fl (7.5-11.1); MONO % 6.6 % (3.8-10.2); NEUT % 70.4 % (42.8-82.8); PLATELET COUNT 249 K/MM3 (134-434); RBC 4.24 M/mm3 (3.60-5.2); RDW 13.8 % (11.6-15.6); WHITE BLOOD COUNT 10.2 K/mm3 (4.0-10.0)
--- NOTE | 2018-02-25 13:45 | PDOC ---
History of Present Illness - General Chief Complaint: Revisit,Wound Recheck Stated Complaint: WOUND Time Seen by Provider: 02/25/18 12:43 - History of Present Illness Initial Comments: Roslyn Villalobos is a 53yo woman with a PMH of HTN, HLD, DM, s/p L2-3 laminectomy and fusion on 01/03/18 (Nancyi) c/b dehiscence s/p debridement of fibrinous material on 02/17 (Jim) who presents today with concerns about her wound. Per Ms Villalobos, she has had a wound nurse coming to help care for her wound 3x weekly, and this nurse originally expressed the need for debridement and wound clinic several weeks ago. Following her debridement, she has been dressing her wound with santyl but reports that the dressings have been changed only when the nurse is present. She and her have not changed the dressing themselves. Yesterday, the nurse was concerned that the wound had a bad odor and a lot of yellowish material present. She suggested being seen in the wound clinic, but Ms Villalobos was unable to reach the clinic yesterday and so presented [facility] ED today. Ms Villalobos states that she was seen in the ED several days ago with nausea, vomiting, and dehydration. She has continued to have nausea but no vomiting over the past few days; however she has had several episodes of diarrhea per day over the last several days. She denies any fevers or chills, has not noticed the wound becoming more painful, and has not noticed significant drainage or any bleeding from the wound. She and her both state that they have noticed an odor recently. Past History - Past Medical History Allergies/Adverse Reactions: Allergies Allergy/AdvReac Type Severity Reaction Status Date / Time No Known Allergies Allergy Verified 02/25/18 11:53 Home Medications: Ambulatory Orders Insulin (Levemir) [Levemir Vial] 35 unit SQ HS 10/28/14 Metformin HCl [Glucophage] 1,000 mg PO BID 02/25/18 Metoprolol Succinate [Toprol Xl] 50 mg PO BID 02/25/18 Pantoprazole Sodium [Protonix] 40 mg PO DAILY 02/25/18 Simvastatin 40 mg PO HS 02/25/18 COPD: No DVT: No Diabetes: Yes HTN: Yes Hypercholesterolemia: Yes - Surgical History Orthopedic Surgery: Yes (left calf abscess ) - Suicide/Smoking/Psychosocial Hx Smoking Status: No Smoking History: Never smoked Have you smoked in the past 12 months: No Number of Cigarettes Smoked Daily: 0 Hx Alcohol Use: No Drug/Substance Use Hx: No Substance Use Type: None Review of Systems - Review of Systems Comments:: General: No fevers, no chills, no weight or appetite change, no malaise HEENT: No changes in vision, no changes in hearing, no congestion, no sore throat CV: No chest pain, no palpitations, no LE edema Pulm: No SOB, no cough, no wheezing GI: +nausea, +diarrhea, +recent vomiting. No blood per rectum, no melena : No frequency, no urgency, no dysuria Musc: See HPI Skin: See HPI. +tape reaction around wound Endo: No excessive thirst, no heat/cold intolerance Heme: No unusual bruising or bleeding, no swollen glands Neuro: No syncope, no numbness/tingling, no focal weakness Vasc: No claudication Psych: No recent change in mood, no SI or HI *Physical Exam - Vital Signs Last Vital Signs Temp Pulse Resp BP Pulse Ox 98.6 F 84 18 119/75 98 02/25/18 11:50 02/25/18 11:50 02/25/18 11:50 02/25/18 11:50 02/25/18 11:50 - Physical Exam Comments: General: Comfortable, no acute distress HEENT: PERRL, EOMI, MMM, voice normal, normal neck ROM, no LAD Cards: RRR, no murmur appreciated Pulm: Comfortable on room air, clear to auscultation bilaterally Abd: Soft, nontender, nondistended Back: Midline surgical wound with approximately 5cm dehiscence, 1cm deep x 1cm wide at inferior portion. Does not track. Wound covered in pale green exudate, no clean wound base visible. Moderately TTP. No surrounding erythema or exudate. Dressing with small amount of green-yellow thick drainage on dry gauze covered in ABD, not soaked through gauze. Skin lateral to wound with rash consistent with contact dermatitis in rectangular pattern consistent with tape placement. Ext: Atraumatic. No LE edema. ROM intact. Strength 5/5 and equal bilaterally Vasc: Extremities WWP. Palpable radial and pedal pulses bilaterally Neuro: A&Ox3, CN grossly intact, normal speech, motor/sensory grossly intact and symmetric Psych: Mood appropriate to situation ED Treatment Course - LABORATORY CBC & Chemistry Diagram: 02/25/18 13:35 02/25/18 13:35 - RADIOLOGY Radiology Studies Ordered: Category Date Time Status CHEST X-RAY PORTABLE* [RAD] Stat Radiology 02/25/18 13:11 Ordered Medical Decision Making - Medical Decision Making 02/25/18 14:09 Roslyn Villalobos is a 53yo woman with a PMH of DM, HTN, HLD s/p L2-3 laminectomy ( 01/03) c/b dehiscence and infection s/p debridement (02/17) who presents with wound malodor and yellow-green fibrinous drainage consistent with continuing infection. - Sepsis workup including CBC, CMP, lactate, VBG, blood culture, urine culture, wound culture (superficial swab) - Vanc/zosyn for wound coverage - EKG, CXR, trop per sepsis workup - Contacted Dr Rubalcava; non-contrast CT lumbar spine ordered. ID consult placed to Dr Madrigal - Contacted Dr Fernandez for wound care, will follow patient - Discussed likely admission with Ms Villalobos and her pending results of initial labs 02/25/18 16:41 - Labs notable for WBC 10.2 (11.5 on 02/21), lactate 2.2 - Plan to admit to medicine; discussed with hospitalist team Discussed with Dr Mock. *DC/Admit/Observation/Transfer Diagnosis at time of Disposition: Delayed surgical wound healing - Discharge Dispostion Condition at time of disposition: Fair Decision to Admit order: Yes - Referrals Referrals: Zulay Wilburn MD [Primary Care Provider] - - Patient Instructions - Post Discharge Activity
[2018-02-25] MEDS ORDERED: SODIUM CHLORIDE 0.9% 500 ML INFUS.BAG IV ONE (13:49)
[2018-02-25] MEDS ORDERED: VANCOMYCIN 1,250 MG in DEXTROSE 5%-WATER - 250 ML IVPB ONE (13:49)
[2018-02-25] MEDS ORDERED: PIPERACILLIN/TAZOB 4.5 GM 4.5 GM in DEXTROSE 5%-WATER 100 ML IVPB ONE (13:49)
[2018-02-25 13:55] LABS: INR 1.16 (0.83-1.09); PROTHROMBIN TIME (PATIENT) 13.1 SEC (9.7-13.0)
[2018-02-25 13:57] LABS: ACTIVATED PTT 28.7 SECONDS (25.2-36.5)
[2018-02-25] MEDS ORDERED: VANCOMYCIN 1 GRAM (PRE-DOCKED) 1,000 MG/250 ML BAG IVPB ONE (13:57)
[2018-02-25] MEDS ORDERED: PIPERACILLIN/TAZOB 3.375 GM 3.375 GM/50 ML BAG IVPB ONE (13:57)
[2018-02-25 14:21] LABS: URINE APPEARANCE CLEAR; URINE BILIRUBIN NEGATIVE (<2.0 mg/dL); URINE COLOR STRAW; URINE GLUCOSE (UA) NEGATIVE (NEGATIVE); URINE KETONE TRACE (NEGATIVE); URINE LEUK ESTERASE NEGATIVE (NEGATIVE); URINE NITRITE NEGATIVE (NEGATIVE); URINE PROTEIN NEGATIVE (NEGATIVE); URINE UROBILINOGEN NEGATIVE mg/dL (0.2-1.0)
[2018-02-25 14:23] LABS: ALBUMIN 3.5 g/dl (3.4-5.0); ANION GAP 9 MMOL/L (8-16); BILIRUBIN,TOTAL 0.4 mg/dL (0.2-1.0); BLOOD UREA NITROGEN 9 mg/dL (7-18); CALCIUM 8.9 mg/dL (8.5-10.1); CHLORIDE 104 mmol/L (98-107); CO2 26 mmol/L (21-32); CREATININE 0.9 mg/dL (0.55-1.02); GLUCOSE,RANDOM 136 mg/dL (74-106); SGPT/ALT 12 U/L (12-78); SODIUM 139 mmol/L (136-145); TOT PROT 7.5 g/dl (6.4-8.2)
[2018-02-25 14:25] LABS: ALK PHOS 80 U/L (45-117)
[2018-02-25 14:26] LABS: POTASSIUM 4.1 mmol/L (3.5-5.1)
[2018-02-25 14:27] LABS: SGOT/AST 17 U/L (15-37)
--- NOTE | 2018-02-25 14:48 | PDOC ---
Attending Attestation - Resident Resident Name: Cynthia Erazo - ED Attending Attestation I have performed the following: I have examined & evaluated the patient, The case was reviewed & discussed with the resident, I agree w/resident's findings & plan, Exceptions are as noted - HPI HPI: 02/25/18 14:47 53-year-old female with past history hypertension, diabetes, hyperlipidemia status post L2-L3 laminectomy and fusion in early December presents with lower back wound infection. Since the surgery, the patient has been under the care of a little nurse at home. Last week, the patient underwent debridement by surgeon Dr. Jamie Fernandez. Since then, the patient's and the wound care nurse believes that the wound is getting worse but patient denies any fevers. Patient noted a foul-smelling wound and came to the ED. - Physicial Exam PE: 02/25/18 14:47 GENERAL: Awake, alert, and fully oriented, in no acute distress HEAD: No signs of trauma EYES: EOMI, sclera anicteric, conjunctiva clear ENT: Auricles normal inspection, hearing grossly normal, nares patent, NECK: Normal ROM, supple BACK: Approximately 5 cm lower back dehiscenced wound with yellowish-greenish discharge. EXTREMITIES: Normal range of motion, no edema. No clubbing or cyanosis. No cords, erythema, or tenderness NEUROLOGICAL: Cranial nerves II through XII grossly intact. Normal speech, normal gait SKIN: Warm, Dry, normal turgor, no rashes or lesions noted. - Medical Decision Making 02/25/18 14:48 Vital Signs Temp Pulse Resp BP Pulse Ox 98.6 F 84 18 119/75 98 02/25/18 11:50 02/25/18 11:50 02/25/18 11:50 02/25/18 11:50 02/25/18 11:50 Patient appears to have dehisced wound infection. We'll need to rule out osteomyelitis. Obtain cultures, ESR CRP. Obtain wound culture. Initiate IV antibiotic, vancomycin and Zosyn. Admit the patient to the hospital. 02/25/18 15:29 CBC, BMP 02/25/18 13:35 02/25/18 13:35 CMP Sodium 139 mmol/L (136-145) 02/25/18 13:35 Potassium 4.1 mmol/L (3.5-5.1) 02/25/18 13:35 Chloride 104 mmol/L (98-107) 02/25/18 13:35 Carbon Dioxide 26 mmol/L (21-32) 02/25/18 13:35 Anion Gap 9 MMOL/L (8-16) 02/25/18 13:35 BUN 9 mg/dL (7-18) 02/25/18 13:35 Creatinine 0.9 mg/dL (0.55-1.02) 02/25/18 13:35 Creat Clearance w eGFR > 60 (>60) 02/25/18 13:35 Random Glucose 136 mg/dL (74-106) H 02/25/18 13:35 Lactic Acid 2.2 mmol/L (0.0-2.0) H* 02/25/18 13:35 Calcium 8.9 mg/dL (8.5-10.1) 02/25/18 13:35 Total Bilirubin 0.4 mg/dL (0.2-1.0) 02/25/18 13:35 AST 17 U/L (15-37) 02/25/18 13:35 ALT 12 U/L (12-78) 02/25/18 13:35 Alkaline Phosphatase 80 U/L (45-117) 02/25/18 13:35 Creatine Kinase 50 IU/L (26-192) 02/25/18 13:35 Troponin I 0.06 ng/ml (0.00-0.05) H 02/25/18 13:35 Total Protein 7.5 g/dl (6.4-8.2) 02/25/18 13:35 Albumin 3.5 g/dl (3.4-5.0) 02/25/18 13:35 Heart Score/ECG Review #1 ECG reviewed & interpreted by me at: 14:00 02/25/18 14:48 NSR 91, no std/varun, T wave flat III, avF, nonspecific ST and T wave abnormality , QTC 452 msec
--- NOTE | 2018-02-25 16:34 | HP ---
CHIEF COMPLAINT: Foul smelling wound PCP: Victoriano Rubalcava (neurosurg) Jamie Fernandez (vasc surg) HISTORY OF PRESENT ILLNESS: Pt is a 53 y/o F with PMH Laminectomy by Dr. Rubalcava on January 03 who presented because her back wound, which has been slowly healing since her surgery has now developed a green discharge and foul odor. Pt has wound care nurse 3x/week changing dressings, and recently, nurse and patient felt wound was malodorous. Pt tried calling wound care but did not reach anyone and came to ED. Several weeks ago, pt had a debriedment done by Dr. Fernandez. Of note, Pt describes decreased appetite since the surgery with weight loss of 20 lbs, several days of NBNB vomiting a few days ago, watery diarrhea for the last 3 days (small volume, several times daily, without blood). Pt has not been on abx since her surgery. Pt denies fever, chills, headache. No other complaints. ER course was notable for: (1) WBC 10, LA 2.2, Trop 0.06, CRP 1 (2) Vanc, Zosyn (3) L-spine CT Recent Travel: denies PAST MEDICAL HISTORY: DM, HTN, HLD, GERD, ?kidney issue on last visit PAST SURGICAL HISTORY: recent laminectomy Social History: Smoking: denies Alcohol: denies Drugs: denies Family History: Hypertrophic cardiomyopathy, DM, breast cancer (numerous family members, including men), lung CA, hematologic cancer Allergies No Known Allergies Allergy (Verified 02/25/18 11:53) HOME MEDICATIONS: Home Medications Medication Instructions Recorded Insulin (Levemir) [Levemir Vial] 35 unit SQ HS 10/28/14 Metformin HCl [Glucophage] 1,000 mg PO BID 02/25/18 Metoprolol Succinate [Toprol Xl] 50 mg PO BID 02/25/18 Pantoprazole Sodium [Protonix] 40 mg PO DAILY 02/25/18 Simvastatin 40 mg PO HS 02/25/18 REVIEW OF SYSTEMS CONSTITUTIONAL: chills, loss of appetite, weight change Absent: fever, , diaphoresis, generalized weakness, malaise HEENT: Absent: rhinorrhea, nasal congestion, throat pain, throat swelling, difficulty swallowing, mouth swelling, ear pain, eye pain, visual changes CARDIOVASCULAR: Absent: chest pain, syncope, palpitations, irregular heart rate, lightheadedness , peripheral edema RESPIRATORY: Absent: cough, shortness of breath, dyspnea with exertion, orthopnea, wheezing, stridor, hemoptysis GASTROINTESTINAL: Absent: abdominal pain, abdominal distension, nausea, vomiting, diarrhea, constipation, melena, hematochezia GENITOURINARY: Absent: dysuria, frequency, urgency, hesitancy, hematuria, flank pain, genital pain MUSCULOSKELETAL: Absent: myalgia, arthralgia, joint swelling, back pain, neck pain SKIN: Absent: rash, itching, pallor HEMATOLOGIC/IMMUNOLOGIC: Absent: easy bleeding, easy bruising, lymphadenopathy, frequent infections ENDOCRINE: Absent: unexplained weight gain, unexplained weight loss, heat intolerance, cold intolerance NEUROLOGIC: Absent: headache, focal weakness or paresthesias, dizziness, unsteady gait, seizure, mental status changes, bladder or bowel incontinence PSYCHIATRIC: Absent: anxiety, depression, suicidal or homicidal ideation, hallucinations. PHYSICAL EXAMINATION Vital Signs - 24 hr 02/25/18 11:50 Temperature 98.6 F Pulse Rate 84 Respiratory 18 Rate Blood Pressure 119/75 O2 Sat by Pulse 98 Oximetry (%) Gen: NAD, lying on side in bed HEENT: NCAT, EOMI Neck: supple, no jvd Cardio: rrr, normal s1s2, no mrg Pulm: cta b/l Back: Lumbar spine surgical wound dehiscence with green discharge on erythematous margins Abd: soft, nontender, nondistended, normal bs Laboratory Results - last 24 hr 02/25/18 02/25/18 02/25/18 13:30 13:30 13:35 WBC RBC Hgb Hct MCV MCH MCHC RDW Plt Count MPV Absolute Neuts (auto) Neutrophils % Lymphocytes % Monocytes % Eosinophils % Basophils % Nucleated RBC % PT with INR INR PTT (Actin FS) VBG pH 7.40 POC VBG pCO2 40.8 POC VBG pO2 24.7 L Mixed VBG HCO3 24.5 Sodium 139 Potassium 4.1 Chloride 104 Carbon Dioxide 26 Anion Gap 9 BUN 9 Creatinine 0.9 Creat Clearance w eGFR > 60 Random Glucose 136 H Lactic Acid Calcium 8.9 Total Bilirubin 0.4 AST 17 ALT 12 Alkaline Phosphatase 80 Creatine Kinase 50 Troponin I Cancelled 0.06 H Total Protein 7.5 Albumin 3.5 Urine Color Urine Appearance Urine pH Ur Specific [place] Urine Protein Urine Glucose (UA) Urine Ketones Urine Blood Urine Nitrite Urine Bilirubin Urine Urobilinogen Ur Leukocyte Esterase 02/25/18 02/25/18 02/25/18 13:35 13:35 13:35 WBC 10.2 H RBC 4.24 Hgb 12.6 Hct 37.7 MCV 89.0 MCH 29.7 MCHC 33.4 RDW 13.8 Plt Count 249 MPV 11.1 Absolute Neuts (auto) 7.2 Neutrophils % 70.4 Lymphocytes % 19.1 D Monocytes % 6.6 Eosinophils % 3.1 D Basophils % 0.8 Nucleated RBC % 0 PT with INR 13.10 H INR 1.16 H PTT (Actin FS) 28.7 VBG pH POC VBG pCO2 POC VBG pO2 Mixed VBG HCO3 Sodium Potassium Chloride Carbon Dioxide Anion Gap BUN Creatinine Creat Clearance w eGFR Random Glucose Lactic Acid 2.2 H* Calcium Total Bilirubin AST ALT Alkaline Phosphatase Creatine Kinase Troponin I Total Protein Albumin Urine Color Urine Appearance Urine pH Ur Specific [place] Urine Protein Urine Glucose (UA) Urine Ketones Urine Blood Urine Nitrite Urine Bilirubin Urine Urobilinogen Ur Leukocyte Esterase 02/25/18 14:12 WBC RBC Hgb Hct MCV MCH MCHC RDW Plt Count MPV Absolute Neuts (auto) Neutrophils % Lymphocytes % Monocytes % Eosinophils % Basophils % Nucleated RBC % PT with INR INR PTT (Actin FS) VBG pH POC VBG pCO2 POC VBG pO2 Mixed VBG HCO3 Sodium Potassium Chloride Carbon Dioxide Anion Gap BUN Creatinine Creat Clearance w eGFR Random Glucose Lactic Acid Calcium Total Bilirubin AST ALT Alkaline Phosphatase Creatine Kinase Troponin I Total Protein Albumin Urine Color Straw Urine Appearance Clear Urine pH 5.0 Ur Specific [place] 1.003 Urine Protein Negative Urine Glucose (UA) Negative Urine Ketones Trace H Urine Blood Negative Urine Nitrite Negative Urine Bilirubin Negative Urine Urobilinogen Negative Ur Leukocyte Esterase Negative ASSESSMENT/PLAN: Pt is a 53 y/o F with PMH sig for recent laminectomy who presents to ED with foul-smelling dehiscent wound on L-spine. #Lumbar surgical wound -wound Cx -ID consult -Vasc Surg consult -Neurosurg consult -L-spine CT -Vanc -Zosyn -LA elevated. Repeat pending -repeat Trop #Dehydration 2/2 n/v/d -recently in ED for similar -NBNB vomit. Resolved -Watery diarrhea. Resolved -NS in ED -encourage PO intake #DM -BGM ACHS -ISS -holding metformin #HTN -c/w Metoprolol 50 bid #HLD -c/w simvastatin 40 hs #GERD -c/w protonix #FEN -not on NS -lytes wnl -Na controlled, low fat, DM diet #PPx -HSQ #Dispo -Med/Surg Benja Reardon MD PGY-2 IM Visit type - Emergency Visit Emergency Visit: Yes Care time: The patient presented to the Emergency Department on the above date and was hospitalized for further evaluation of their emergent condition. - New Patient This patient is new to me today: Yes Date on this admission: 02/25/18 - Critical Care Critical Care patient: No Hospitalist Screening - Colonoscopy Questionnaire Colonoscopy Questionnaire: Colonoscopy Questionnaire - Patient: 50 - 75 years old and never had a screening colonoscopy: Unknown History of colon or rectal polyps, or CA: Unknown History of IBD, Crohn's disease or UC: Unknown History of abdominal radiation therapy as a child: Unknown - Relative: 1 with colon or rectal CA, or polyps at age 60 or younger: Unknown Colon or rectal CA diagnosed at age 45 or younger: Unknown Multiple relatives with colon or rectal CA: Unknown - Outcome: Screening Result: Negative Screen
--- NOTE | 2018-02-25 16:57 | PN ---
Teaching Attending Note Name of Resident: Benja Reardon ATTENDING PHYSICIAN STATEMENT I saw and evaluated the patient. I reviewed the resident's note and discussed the case with the resident. I agree with the resident's findings and plan as documented with exceptions below. SUBJECTIVE: 53 yof with PMHx of laminectomy in 12/2017, IDDM, HTN, re-admitted in 01/2018 with dehydration/LUIS with cr 4.4, post op course complicated by wound dehiscence , followed by Dr. Fernandez in wound care clinic, s/p wound debridement on 02/17, yesterday was noted by wound care nurse with sloughing/greenish foul smelling discharge, unable to contact wound care clinic, so came to the ED today. Denies any fevers, chills, abdominal or urinary concerns. Dr. Rubalcava was contacted from ED, recommended CT L spine Dr. Fernandez was contacted from ED and will see the patient. Patient denies any new pain, tingling, weakness, numbness.Reports diarrhea, multiple episodes, scant non bloody over last 4 days, tried immodium yesterday. Was placed ancef post surgery in 12/2017, but no other antibiotics. 12 point ROS neg except above. OBJECTIVE: Vital Signs Period Temp Pulse Resp BP Sys/Rivera Pulse Ox Last 24 Hr 98.2 F-98.6 F 68-84 16-18 119-125/74-75 98-99 Intake & Output 02/22/18 02/23/18 02/24/18 02/25/18 23:59 23:59 23:59 23:59 Weight 185 lb GENERAL: Awake, alert, and fully oriented, in no acute distress. HEAD: Normal with no signs of trauma. EYES: Pupils equal, round and reactive to light, extraocular movements intact, sclera anicteric, conjunctiva clear. No lid lag. EARS, NOSE, THROAT: Ears normal, nares patent, oropharynx clear without exudates. Moist mucous membranes. NECK: Soft, supple, no JVD LUNGS: Breath sounds equal, clear to auscultation bilaterally. No wheezes, and no crackles. No accessory muscle use. HEART: Regular rate and rhythm, normal S1 and S2 without murmur, rub or gallop. ABDOMEN: Soft, nontender, not distended, normoactive bowel sounds, no guarding, no rebound, no masses. No hepatomegaly or splenomegaly. MUSCULOSKELETAL: lumbar spinal incision wound dehiscence with slough/greenish foul smelling discharge, minimal erythema over margin, no surrounding swelling/ warmth/'tenderness noted UPPER EXTREMITIES: 2+ pulses, warm, well-perfused. No cyanosis. No clubbing. No peripheral edema. LOWER EXTREMITIES: 2+ pulses, warm, well-perfused. No calf tenderness. No peripheral edema. NEUROLOGICAL: Cranial nerves II-XII intact. Normal speech. LLE decreased sensation present from before, power 5/5 PSYCHIATRIC: Cooperative. Good eye contact. Appropriate mood and affect. SKIN: Warm, dry, normal turgor, no rashes or lesions noted, normal capillary refill. Home Medications Medication Instructions Recorded Insulin (Levemir) [Levemir Vial] 35 unit SQ HS 10/28/14 Metformin HCl [Glucophage] 1,000 mg PO BID 02/25/18 Metoprolol Succinate [Toprol Xl] 50 mg PO BID 02/25/18 Pantoprazole Sodium [Protonix] 40 mg PO DAILY 02/25/18 Simvastatin 40 mg PO HS 02/25/18 Active Medications Atorvastatin Calcium (Lipitor -) 20 mg PO HS [facility] Heparin Sodium (Porcine) (Heparin -) 5,000 unit SQ TID [facility] Sodium Chloride (Normal Saline -) 1,000 mls @ 100 mls/hr IV ASDIR BHARATH Insulin Aspart (Novolog Vial Sliding Scale -) 1 vial SQ ACHS [facility]; Protocol Metoprolol Succinate (Toprol Xl -) 50 mg PO BID BHARATH Pantoprazole Sodium (Protonix -) 40 mg PO DAILY [facility] Laboratory Results - last 24 hr 02/25/18 02/25/18 02/25/18 13:30 13:30 13:35 WBC RBC Hgb Hct MCV MCH MCHC RDW Plt Count MPV Absolute Neuts (auto) Neutrophils % Lymphocytes % Monocytes % Eosinophils % Basophils % Nucleated RBC % ESR PT with INR INR PTT (Actin FS) VBG pH 7.40 POC VBG pCO2 40.8 POC VBG pO2 24.7 L Mixed VBG HCO3 24.5 Sodium 139 Potassium 4.1 Chloride 104 Carbon Dioxide 26 Anion Gap 9 BUN 9 Creatinine 0.9 Creat Clearance w eGFR > 60 Random Glucose 136 H Lactic Acid Calcium 8.9 Total Bilirubin 0.4 AST 17 ALT 12 Alkaline Phosphatase 80 Creatine Kinase 50 Troponin I Cancelled 0.06 H C-Reactive Protein Total Protein 7.5 Albumin 3.5 Urine Color Urine Appearance Urine pH Ur Specific [place] Urine Protein Urine Glucose (UA) Urine Ketones Urine Blood Urine Nitrite Urine Bilirubin Urine Urobilinogen Ur Leukocyte Esterase 02/25/18 02/25/18 02/25/18 13:35 13:35 13:35 WBC 10.2 H RBC 4.24 Hgb 12.6 Hct 37.7 MCV 89.0 MCH 29.7 MCHC 33.4 RDW 13.8 Plt Count 249 MPV 11.1 Absolute Neuts (auto) 7.2 Neutrophils % 70.4 Lymphocytes % 19.1 D Monocytes % 6.6 Eosinophils % 3.1 D Basophils % 0.8 Nucleated RBC % 0 ESR PT with INR 13.10 H INR 1.16 H PTT (Actin FS) 28.7 VBG pH POC VBG pCO2 POC VBG pO2 Mixed VBG HCO3 Sodium Potassium Chloride Carbon Dioxide Anion Gap BUN Creatinine Creat Clearance w eGFR Random Glucose Lactic Acid 2.2 H* Calcium Total Bilirubin AST ALT Alkaline Phosphatase Creatine Kinase Troponin I C-Reactive Protein Total Protein Albumin Urine Color Urine Appearance Urine pH Ur Specific [place] Urine Protein Urine Glucose (UA) Urine Ketones Urine Blood Urine Nitrite Urine Bilirubin Urine Urobilinogen Ur Leukocyte Esterase 02/25/18 02/25/18 02/25/18 13:35 13:35 14:12 WBC RBC Hgb Hct MCV MCH MCHC RDW Plt Count MPV Absolute Neuts (auto) Neutrophils % Lymphocytes % Monocytes % Eosinophils % Basophils % Nucleated RBC % ESR 30 PT with INR INR PTT (Actin FS) VBG pH POC VBG pCO2 POC VBG pO2 Mixed VBG HCO3 Sodium Potassium Chloride Carbon Dioxide Anion Gap BUN Creatinine Creat Clearance w eGFR Random Glucose Lactic Acid Calcium Total Bilirubin AST ALT Alkaline Phosphatase Creatine Kinase Troponin I C-Reactive Protein 1.0 H Total Protein Albumin Urine Color Straw Urine Appearance Clear Urine pH 5.0 Ur Specific [place] 1.003 Urine Protein Negative Urine Glucose (UA) Negative Urine Ketones Trace H Urine Blood Negative Urine Nitrite Negative Urine Bilirubin Negative Urine Urobilinogen Negative Ur Leukocyte Esterase Negative CT L spine done, results pending ASSESSMENT AND PLAN: 53 yof with PMHx of laminectomy in 12/2017, IDDM, HTN, re-admitted in 01/2018 with dehydration/LUIS with cr 4.4, post op course complicated by wound dehiscence , followed by Dr. Fernandez in wound care clinic, s/p wound debridement on 02/17, admitted with wound infection -laminectomy complicated by wound dehiscence/wound infection -DIarrhea -Lactic acidosis, likely diarrhea/hypovolumia +/- metformin -IDDM -HTN Plan: Zosyn/vancomycin, ID input. Dr. Rubalcava/Dr. Fernandez consult. CT LS spine, follow up. Stool C difficile if concerning Diarrhea. Hold metformin, IVF. COntinue metoprolol DVTPPX with heparin Dispo - pending clinical input Plan discussed with patient in detail, all questions answered. total admit time 55 min.
[2018-02-25] MEDS ORDERED: SODIUM CHLORIDE 1,000 ML IV SCH (17:00)
[2018-02-25] MEDS: INSULIN SLIDING SCALE (NOVOLOG) 1 VIAL SQ SCH ×2 (17:12→22:50)
[2018-02-25] MEDS ORDERED: SODIUM CHLORIDE 500 ML IV STA (17:26)
[2018-02-25] MEDS ORDERED: ONDANSETRON 4 MG/2 ML VIAL IVPUSH ONE (19:37)
[2018-02-25] MEDS ORDERED: ONDANSETRON 4 MG/2 ML VIAL ONE (19:48)
[2018-02-25] MEDS ORDERED: ONDANSETRON 4 MG/2 ML VIAL IVPUSH PRN (21:20)
[2018-02-25] MEDS ORDERED: INSULIN (LEVEMIR) 100 UNITS/ML UNITS SQ SCH (22:00)
[2018-02-25] MEDS: ATORVASTATIN CA 20 MG TABLET (FP) PO SCH (22:45)
[2018-02-25] MEDS: HEPARIN NA (PORCINE) 5,000 UNITS/ML 1ML VIAL SQ SCH (22:45)
[2018-02-25] MEDS: PIPERACILLIN/TAZOB 3.375 GM 3.375 GM in DEXTROSE 5%-WATER 100 ML IVPB ONE (22:45)
[2018-02-25] MEDS ORDERED: PIPERACILLIN/TAZOBACTAM 3.375 GM VIAL IVPB ONE (23:15)
[2018-02-25] MEDS ORDERED: DEXTROSE 5%-WATER 100 ML IVPB ONE (23:15)
[2018-02-26 02:14] VITALS: BMI 29.7
[2018-02-26] MEDS ORDERED: PIPERACILLIN/TAZOB 3.375 GM 3.375 GM in DEXTROSE 5%-WATER 100 ML IVPB ONE (06:00)
[2018-02-26] MEDS: HEPARIN NA (PORCINE) 5,000 UNITS/ML 1ML VIAL SQ SCH ×3 (06:03→21:07)
[2018-02-26] MEDS ORDERED: PIPERACILLIN/TAZOBACTAM 3.375 GM VIAL IVPB ONE ×3 (06:53→21:05)
[2018-02-26] MEDS ORDERED: DEXTROSE 5%-WATER 200 ML IVPB ONE (06:53)
[2018-02-26] MEDS: INSULIN SLIDING SCALE (NOVOLOG) 1 VIAL SQ SCH ×4 (07:05→21:09)
[2018-02-26] MEDS ORDERED: SODIUM CHLORIDE 1,000 ML IV STA (08:13)
[2018-02-26] MEDS ORDERED: SODIUM CHLORIDE 1,000 ML IV SCH (08:15)
[2018-02-26 08:19] LABS: BASO % 0.7 % (0-2.0); EOS % 3.7 % (0-4.5); HEMATOCRIT 34.2 % (32.4-45.2); HEMOGLOBIN 11.2 GM/dL (10.7-15.3); LYMPH % 10.7 % (8-40); MCH 29.2 pg (25.7-33.7); MCHC 32.7 g/dl (32.0-36.0); MEAN CELL VOLUME 89.4 fl (80-96); MEAN PLT VOLUME 11.2 fl (7.5-11.1); MONO % 5.8 % (3.8-10.2); NEUT % 79.1 % (42.8-82.8); PLATELET COUNT 196 K/MM3 (134-434); RBC 3.83 M/mm3 (3.60-5.2); RDW 13.7 % (11.6-15.6); WHITE BLOOD COUNT 11.9 K/mm3 (4.0-10.0)
[2018-02-26 08:57] LABS: CHLORIDE 106 mmol/L (98-107); POTASSIUM 3.5 mmol/L (3.5-5.1); SODIUM 143 mmol/L (136-145)
[2018-02-26 09:11] LABS: ALBUMIN 2.9 g/dl (3.4-5.0); ALK PHOS 62 U/L (45-117); ANION GAP 13 MMOL/L (8-16); BILIRUBIN,TOTAL 0.5 mg/dL (0.2-1.0); BLOOD UREA NITROGEN 9 mg/dL (7-18); CALCIUM 8.1 mg/dL (8.5-10.1); CO2 24 mmol/L (21-32); CREATININE 0.9 mg/dL (0.55-1.02); GLUCOSE,RANDOM 68 mg/dL (74-106); MAGNESIUM 0.9 mg/dL (1.8-2.4); PHOSPHOROUS 3.6 mg/dL (2.5-4.9); SGOT/AST 12 U/L (15-37); SGPT/ALT 9 U/L (12-78)
[2018-02-26] MEDS ORDERED: DEXTROSE 5%-NORMAL SALINE 1,000 ML IV SCH (09:30)
--- NOTE | 2018-02-26 10:04 | PN ---
Physical Exam: SUBJECTIVE: Patient seen and examined, no new pain, fevers or chills, No dizziness. Eating well, no diarrhea inhouse noted. OBJECTIVE: Vital Signs Period Temp Pulse Resp BP Sys/Rivera Pulse Ox Last 24 Hr 98.2 F-99.1 F 68-87 16-20 97-137/58-75 98-99 GENERAL: The patient is awake, alert, and fully oriented, in no acute distress. HEAD: Normal with no signs of trauma. EYES: PERRL, extraocular movements intact, sclera anicteric, conjunctiva clear. No ptosis. ENT: Ears normal, nares patent, oropharynx clear without exudates, moist mucous membranes. NECK: Trachea midline, full range of motion, supple. LUNGS: Breath sounds equal, clear to auscultation bilaterally, no wheezes, no crackles, no accessory muscle use. HEART: s1s2 regular ABDOMEN: Soft, nontender, nondistended, normoactive bowel sounds, no guarding, no rebound, no hepatosplenomegaly Musculoskeletal: lumbar spinal wound with dehiscence with persistent sloughing, greenish discharge and some foul smell, mild erythema at the margins, unchanged wound from yesterday EXTREMITIES: 2+ pulses, warm, well-perfused, no edema. PSYCH: Anxious Laboratory Results - last 24 hr 02/25/18 02/25/18 02/25/18 13:30 13:30 13:35 WBC RBC Hgb Hct MCV MCH MCHC RDW Plt Count MPV Absolute Neuts (auto) Neutrophils % Lymphocytes % Monocytes % Eosinophils % Basophils % Nucleated RBC % ESR PT with INR INR PTT (Actin FS) VBG pH 7.40 POC VBG pCO2 40.8 POC VBG pO2 24.7 L Mixed VBG HCO3 24.5 Sodium 139 Potassium 4.1 Chloride 104 Carbon Dioxide 26 Anion Gap 9 BUN 9 Creatinine 0.9 Creat Clearance w eGFR > 60 POC Glucometer Random Glucose 136 H Lactic Acid Calcium 8.9 Phosphorus Magnesium Total Bilirubin 0.4 AST 17 ALT 12 Alkaline Phosphatase 80 Creatine Kinase 50 Troponin I Cancelled 0.06 H C-Reactive Protein Total Protein 7.5 Albumin 3.5 Urine Color Urine Appearance Urine pH Ur Specific [place] Urine Protein Urine Glucose (UA) Urine Ketones Urine Blood Urine Nitrite Urine Bilirubin Urine Urobilinogen Ur Leukocyte Esterase 02/25/18 02/25/18 02/25/18 13:35 13:35 13:35 WBC 10.2 H RBC 4.24 Hgb 12.6 Hct 37.7 MCV 89.0 MCH 29.7 MCHC 33.4 RDW 13.8 Plt Count 249 MPV 11.1 Absolute Neuts (auto) 7.2 Neutrophils % 70.4 Lymphocytes % 19.1 D Monocytes % 6.6 Eosinophils % 3.1 D Basophils % 0.8 Nucleated RBC % 0 ESR PT with INR 13.10 H INR 1.16 H PTT (Actin FS) 28.7 VBG pH POC VBG pCO2 POC VBG pO2 Mixed VBG HCO3 Sodium Potassium Chloride Carbon Dioxide Anion Gap BUN Creatinine Creat Clearance w eGFR POC Glucometer Random Glucose Lactic Acid 2.2 H* Calcium Phosphorus Magnesium Total Bilirubin AST ALT Alkaline Phosphatase Creatine Kinase Troponin I C-Reactive Protein Total Protein Albumin Urine Color Urine Appearance Urine pH Ur Specific [place] Urine Protein Urine Glucose (UA) Urine Ketones Urine Blood Urine Nitrite Urine Bilirubin Urine Urobilinogen Ur Leukocyte Esterase 02/25/18 02/25/18 02/25/18 13:35 13:35 13:35 WBC RBC Hgb Hct MCV MCH MCHC RDW Plt Count MPV Absolute Neuts (auto) Neutrophils % Lymphocytes % Monocytes % Eosinophils % Basophils % Nucleated RBC % ESR 30 PT with INR INR PTT (Actin FS) VBG pH POC VBG pCO2 POC VBG pO2 Mixed VBG HCO3 Sodium Potassium Chloride Carbon Dioxide Anion Gap BUN Creatinine Creat Clearance w eGFR POC Glucometer Random Glucose Lactic Acid Calcium Phosphorus Magnesium Total Bilirubin AST ALT Alkaline Phosphatase Creatine Kinase Troponin I 0.05 C-Reactive Protein 1.0 H Total Protein Albumin Urine Color Urine Appearance Urine pH Ur Specific [place] Urine Protein Urine Glucose (UA) Urine Ketones Urine Blood Urine Nitrite Urine Bilirubin Urine Urobilinogen Ur Leukocyte Esterase 02/25/18 02/25/18 02/25/18 14:12 17:04 17:10 WBC RBC Hgb Hct MCV MCH MCHC RDW Plt Count MPV Absolute Neuts (auto) Neutrophils % Lymphocytes % Monocytes % Eosinophils % Basophils % Nucleated RBC % ESR PT with INR INR PTT (Actin FS) VBG pH POC VBG pCO2 POC VBG pO2 Mixed VBG HCO3 Sodium Potassium Chloride Carbon Dioxide Anion Gap BUN Creatinine Creat Clearance w eGFR POC Glucometer [id number] Random Glucose Lactic Acid 3.0 H* Calcium Phosphorus Magnesium Total Bilirubin AST ALT Alkaline Phosphatase Creatine Kinase Troponin I C-Reactive Protein Total Protein Albumin Urine Color Straw Urine Appearance Clear Urine pH 5.0 Ur Specific [place] 1.003 Urine Protein Negative Urine Glucose (UA) Negative Urine Ketones Trace H Urine Blood Negative Urine Nitrite Negative Urine Bilirubin Negative Urine Urobilinogen Negative Ur Leukocyte Esterase Negative 02/25/18 02/26/18 02/26/18 21:00 00:13 06:56 WBC 11.9 H RBC 3.83 Hgb 11.2 Hct 34.2 MCV 89.4 MCH 29.2 MCHC 32.7 RDW 13.7 Plt Count 196 D MPV 11.2 H Absolute Neuts (auto) 9.4 H Neutrophils % 79.1 Lymphocytes % 10.7 D Monocytes % 5.8 Eosinophils % 3.7 Basophils % 0.7 Nucleated RBC % 0 ESR PT with INR INR PTT (Actin FS) VBG pH POC VBG pCO2 POC VBG pO2 Mixed VBG HCO3 Sodium Potassium Chloride Carbon Dioxide Anion Gap BUN Creatinine Creat Clearance w eGFR POC Glucometer 138 Random Glucose Lactic Acid 5.6 H* Calcium Phosphorus Magnesium Total Bilirubin AST ALT Alkaline Phosphatase Creatine Kinase Troponin I C-Reactive Protein Total Protein Albumin Urine Color Urine Appearance Urine pH Ur Specific [place] Urine Protein Urine Glucose (UA) Urine Ketones Urine Blood Urine Nitrite Urine Bilirubin Urine Urobilinogen Ur Leukocyte Esterase 02/26/18 02/26/18 06:56 06:56 WBC RBC Hgb Hct MCV MCH MCHC RDW Plt Count MPV Absolute Neuts (auto) Neutrophils % Lymphocytes % Monocytes % Eosinophils % Basophils % Nucleated RBC % ESR PT with INR INR PTT (Actin FS) VBG pH POC VBG pCO2 POC VBG pO2 Mixed VBG HCO3 Sodium 143 Potassium 3.5 Chloride 106 Carbon Dioxide 24 Anion Gap 13 BUN 9 Creatinine 0.9 Creat Clearance w eGFR > 60 POC Glucometer 83 Random Glucose 68 L Lactic Acid Calcium 8.1 L Phosphorus 3.6 Magnesium 0.9 L Total Bilirubin 0.5 AST 12 L ALT 9 L Alkaline Phosphatase 62 D Creatine Kinase Troponin I C-Reactive Protein Total Protein 6.0 L Albumin 2.9 L Urine Color Urine Appearance Urine pH Ur Specific [place] Urine Protein Urine Glucose (UA) Urine Ketones Urine Blood Urine Nitrite Urine Bilirubin Urine Urobilinogen Ur Leukocyte Esterase Active Medications Generic Name Dose Route Start Last Admin Trade Name Freq PRN Reason Stop Dose Admin Atorvastatin Calcium 20 mg 02/25/18 22:00 02/25/18 22:45 Lipitor - PO 20 mg HS BHARATH Administration Heparin Sodium (Porcine) 5,000 unit 02/25/18 22:00 02/26/18 06:03 Heparin - SQ 5,000 unit TID BHARATH Administration Sodium Chloride 1,000 mls @ 500 mls/hr 02/26/18 08:13 Normal Saline - IV 02/26/18 10:12 ASDIR STA Sodium Chloride 1,000 mls @ 125 mls/hr 02/26/18 10:00 Normal Saline - IV ASDIR BHARATH Insulin Aspart 1 vial 02/25/18 16:30 02/26/18 07:05 Novolog Vial Sliding Scale - SQ Not Given ACHS [facility] Protocol Insulin Detemir 10 units 02/25/18 22:00 02/25/18 22:45 Levemir Vial SQ 10 units HS BHARATH Administration Metoprolol Succinate 50 mg 02/25/18 22:00 02/26/18 00:10 Toprol Xl - PO 50 mg BID BHARATH Administration Ondansetron HCl 4 mg 02/25/18 21:20 Zofran Injection IVPUSH Q6H PRN NAUSEA AND/OR VOMITING Pantoprazole Sodium 40 mg 02/26/18 10:00 Protonix - PO DAILY [facility] Microbiology 02/25/18 13:20 Back Wound Culture - Preliminary Staphylococcus Latex Coag Pos Pseudomonas Species Pending Organism Pending Organism#2 02/25/18 14:12 Urine - Urine Clean Catch Urine Culture - Final NO GROWTH OBTAINED ASSESSMENT/PLAN: 53 yof with PMHx of laminectomy in 12/2017, IDDM, HTN, re-admitted in 01/2018 with dehydration/LUIS with cr 4.4, post op course complicated by wound dehiscence , followed by Dr. Fernandez in wound care clinic, s/p wound debridement on 02/17, admitted with wound infection -laminectomy complicated by wound dehiscence/wound infection -Diarrhea -Lactic acidosis, likely diarrhea/hypovolumia +/- metformin -IDDM, hypoglycemic this AM. -HTN Plan: Zosyn/vancomycin, ID input. Wound cx noted. CT LS spine prelim results noted. Follow up official read. Dr. Rubalcava/Dr. Fernandez consult. Recurrent lactic acidosis, ?Metformin, no diarrhea or decreased oral intake noted inhouse. Does not look septic. Additional 1L IVF bolus. Continue IVF. Stool C difficile if concerning Diarrhea. Hold metformin, Continue metoprolol as tolerated. Repeat blood sugars this noon, if recurrent hypoglycemia, will d/c levemir and place on short term D5NS. DVTPPX with heparin Dispo - pending clinical improvement. Plan discussed with patient and RN in detail, all questions answered. Visit type - Emergency Visit Emergency Visit: Yes ED Registration Date: 02/25/18 Care time: The patient presented to the Emergency Department on the above date and was hospitalized for further evaluation of their emergent condition. - New Patient This patient is new to me today: No - Critical Care Critical Care patient: No - Discharge Referral Referred to [facility] Med P.C.: No
[2018-02-26] MEDS: PIPERACILLIN/TAZOB 3.375 GM 3.375 GM in DEXTROSE 5%-WATER 100 ML IVPB ONE (10:29)
[2018-02-26] MEDS: PANTOPRAZOLE 40 MG TABLET (FP) PO SCH (10:29)
[2018-02-26] MEDS: SODIUM CHLORIDE 1,000 ML IV SCH (10:30)
[2018-02-26] MEDS ORDERED: VANCOMYCIN 1 GM PREMIX - 1 GM/200 ML BAG IVPB ONE (11:00)
--- NOTE | 2018-02-26 14:23 | CON.ID ---
Consult - History of Present Illness History of Present Illness: Asked to evaluate this 53 y.o. female with PMH of IDDM, HLD, GERD who is s/p laminectomy on 01/03/18 presenting with c/o green, foul-smelling discharged at the surgical site noted first 2 days ago by her visiting nurse. She had a debridement of the wound done on 02/17/18. In the interim came to the ER for LUIS and went home after hydration. Recently pt states she had episodes of vomiting and loose stools but it was relieved with immodium. Currently denies abdominal pain/vomiting/diarrhea. Pt denies any recent fever/chills/diaphoresis. Reports lack of appetite and wt loss since her surgery. She has been ambulating with a walker when she goes outside but without assistance walking in the house. Currently she is very anxious. In the ER she was afebrile, but elevated lactic acid level now with mild leukocytosis. She denies having any other complaints. 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: Alzheimer's, CVA, Dementia, Migraine, Multiple Sclerosis, Peripheral Neuropathy, Parkinson's, Seizure, Syncope, TIA, Vertigo, Other Cardio/Vascular: Yes: HTN, Hyperlipdemia Pulmonary: No: Asthma, Bronchitis, Cancer, COPD, O2 Dependent, Pneumonia, Previously Intubated, Pulmonary Embolus, Pulmonary Fibrosis, Sleep Apnea, Other Gastrointestinal: No: Ascites, Cancer, Constipation, Crohn's Disease, Diverticulitis, Diverticulosis, Esophageal Varices, Gastritis, GERD, GI Bleed, Hemorrhoids, Hiatal Hernia, Inflamatory Bowel Disease, Irritable Bowel Disease, Pancreatitis, Peptic Ulcer Disease, Ulcerative Colitis, Other Hepatobiliary: No: Cirrhosis, Cholelithiasis, Cholecystitis, Choledocholithiasis , Hepatitis A, Hepatitis B, Hepatitis C, Other Renal/: No: Renal Failure, Renal Inusuff, BPH, Cancer, Hematuria, Hemodialysis , Neurogenic Bladder, Renal Calculi, UTI, Other Reproductive: No: Ectopic , Endometriosis, Fibroids, PID, Polycystic Ovary Syndrome, Postmenopausal, Other Heme/Onc: No: Anemia, B12 Deficiency, Bleeding Disorder, Cancer, Current Chemotherapy, Current Radiation Therapy, Hemochromatosis, Hypercoaguable State, Myeloproliferative Synd, Sickle Cell Disease, Sickle Cell Trait, Thrombocytopenia, Other Infectious Disease: Yes: Other (Left leg abscess s/p I+D +staph aureus) Psych: Yes: Anxiety Musculoskeletal: No: Bursitis, Chronic low back pain, Hemiparesis, Hemiplegia, Osteoarthritis, Paraplegia, Other Rheumatology: No: Fibromyalgia, Gout, Lupus, Rheumatoid Arthritis, Sarcoidosis, Vasculitis, Other ENT: No: Allergic Rhinitis, Sinusitis, Other Endocrine: Yes: Diabetes Mellitus Dermatology: No: Basal Cell, Cellulitis, Eczema, Melanoma, Psoriasis, Squamous Cell, Other - Past Surgical History Past Surgical History: Yes: Laminectomy - Alcohol/Substance Use Hx Alcohol Use: No - Smoking History Smoking history: Never smoked Have you smoked in the past 12 months: No Aproximately how many cigarettes per day: 0 Home Medications - Allergies Allergies/Adverse Reactions: Allergies Allergy/AdvReac Type Severity Reaction Status Date / Time No Known Allergies Allergy Verified 02/25/18 11:53 - Home Medications Home Medications: Ambulatory Orders Insulin (Levemir) [Levemir Vial] 35 unit SQ HS 10/28/14 Metformin HCl [Glucophage] 1,000 mg PO BID 02/25/18 Metoprolol Succinate [Toprol Xl] 50 mg PO BID 02/25/18 Pantoprazole Sodium [Protonix] 40 mg PO DAILY 02/25/18 Simvastatin 40 mg PO HS 02/25/18 Review of Systems - Review of Systems Constitutional: reports: Loss of Appetite Eyes: reports: No Symptoms HENT: reports: No Symptoms Neck: reports: No Symptoms Cardiovascular: reports: No Symptoms Respiratory: reports: No Symptoms Gastrointestinal: reports: No Symptoms Genitourinary: reports: No Symptoms Breasts: reports: No Symptoms Reported Musculoskeletal: reports: Back Pain (slight) Integumentary: reports: Wound Neurological: reports: No Symptoms Endocrine: reports: No Symptoms Hematology/Lymphatic: reports: No Symptoms Psychiatric: reports: Anxiety Physical Exam Vital Signs: Vital Signs Temperature 99.1 F 02/26/18 06:00 Pulse Rate 86 02/26/18 06:00 Respiratory Rate 20 02/26/18 09:00 Blood Pressure 98/61 02/26/18 06:00 O2 Sat by Pulse Oximetry (%) 99 02/26/18 09:00 Constitutional: Yes: Anxious Eyes: Yes: WNL HENT: Yes: WNL Neck: Yes: Supple Cardiovascular: Yes: Regular Rate and Rhythm Respiratory: Yes: CTA Bilaterally Gastrointestinal: Yes: Normal Bowel Sounds, Soft Renal/: Yes: WNL Extremities: Yes: WNL Edema: No Wound/Incision: Yes: Dressing Removed (lower back wound with eschar/slough, + packing in place) Neurological: Yes: Alert, Oriented Psychiatric: Yes: Alert Labs: CBC, BMP 02/26/18 06:56 02/26/18 06:56 lactate 5.6 ---> normal esr 30 crp -1.0 Imaging - Results Cat Scan: Pending (Spine - pending) Problem List - Problems (1) Delayed surgical wound healing Code(s): T81.89XA - OTH COMPLICATIONS OF PROCEDURES, NEC, INIT (2) Diabetes mellitus Code(s): E11.9 - TYPE 2 DIABETES MELLITUS WITHOUT COMPLICATIONS Qualifiers: Diabetes mellitus type: type 2 Diabetes mellitus ferry terminal agent insulin use: without longterm use Diabetes mellitus complication status: without complication Qualified Code(s): E11.9 - Type 2 diabetes mellitus without complications (3) HTN (hypertension) Code(s): I10 - ESSENTIAL (PRIMARY) HYPERTENSION Qualifiers: Hypertension type: essential hypertension Qualified Code(s): I10 - Essential (primary) hypertension (4) Lumbar disc disease Code(s): M51.9 - UNSP THORACIC, THORACOLUM AND LUMBOSACR INTVRT DISC DISORDER Assessment/Plan 53 y.o. female with PMH of IDDM, HLD, GERD, s/p laminectomy on 01/03/18 with debridement of wound site on 02/17/18 presenting with c/o green/foul-smelling drainage from wound site. Presents with elevated lactate level and currently with mild leukocytosis Infected lumbar surgical wound site s/p laminectomy IDDM vomiting/diarrhea - resolved Leukocytosis -- wound culture prelim results: pseudomonas, Staph aureus, f/u final results -- continue Zosyn, Vancomycin -- Vancomycin trough prior to 4th dose, monitor renal function, monitor wbc trend -- f/u CT scan results -- neurosurgical follow up -- continue wound care -- consider psychiatry consult for management of anxiety monitor vitals closely will follow up Thank you
[2018-02-26] MEDS ORDERED: DEXTROSE 5%-WATER - 50 ML IVPB ONE ×2 (14:35→21:05)
[2018-02-26] MEDS ORDERED: INSULIN (LEVEMIR) 100 UNITS/ML UNITS SQ SCH (17:12)
[2018-02-26] MEDS: PIPERACILLIN/TAZOB 3.375 GM 3.375 GM in DEXTROSE 5%-WATER - 50 ML IVPB SCH ×2 (18:06→21:07)
[2018-02-26] MEDS: ATORVASTATIN CA 20 MG TABLET (FP) PO SCH (21:07)
[2018-02-26] MEDS ORDERED: MELATONIN 5 MG TABLETS PO ONE (21:21)
[2018-02-27] MEDS ORDERED: VANCOMYCIN 1 GM PREMIX - 1 GM/200 ML BAG IVPB SCH
[2018-02-27] MEDS ORDERED: PIPERACILLIN/TAZOBACTAM 3.375 GM VIAL IVPB ONE ×4 (02:04→20:46)
[2018-02-27] MEDS ORDERED: DEXTROSE 5%-WATER - 50 ML IVPB ONE ×4 (02:04→20:46)
[2018-02-27] MEDS: PIPERACILLIN/TAZOB 3.375 GM 3.375 GM in DEXTROSE 5%-WATER - 50 ML IVPB SCH ×4 (02:10→20:51)
[2018-02-27] MEDS: HEPARIN NA (PORCINE) 5,000 UNITS/ML 1ML VIAL SQ SCH ×3 (05:23→21:40)
[2018-02-27] MEDS: INSULIN SLIDING SCALE (NOVOLOG) 1 VIAL SQ SCH ×4 (06:07→21:41)
[2018-02-27 08:29] LABS: BASO % 0.3 % (0-2.0); EOS % 8.9 % (0-4.5); HEMATOCRIT 30.4 % (32.4-45.2); HEMOGLOBIN 9.9 GM/dL (10.7-15.3); LYMPH % 9.4 % (8-40); MCH 29.2 pg (25.7-33.7); MCHC 32.7 g/dl (32.0-36.0); MEAN CELL VOLUME 89.5 fl (80-96); MEAN PLT VOLUME 11.3 fl (7.5-11.1); MONO % 6.3 % (3.8-10.2); NEUT % 75.1 % (42.8-82.8); PLATELET COUNT 156 K/MM3 (134-434); RBC 3.39 M/mm3 (3.60-5.2); RDW 13.7 % (11.6-15.6); WHITE BLOOD COUNT 9.5 K/mm3 (4.0-10.0)
[2018-02-27 09:01] LABS: CHLORIDE 108 mmol/L (98-107); POTASSIUM 3.2 mmol/L (3.5-5.1); SODIUM 143 mmol/L (136-145)
[2018-02-27] MEDS ORDERED: ACETAMINOPHEN 325 MG TABLET (FP) PO PRN ×2 (09:09→15:34)
[2018-02-27 09:10] LABS: ANION GAP 14 MMOL/L (8-16); BLOOD UREA NITROGEN 11 mg/dL (7-18); CALCIUM 7.4 mg/dL (8.5-10.1); CO2 21 mmol/L (21-32); CREATININE 1.4 mg/dL (0.55-1.02); GLUCOSE,RANDOM 104 mg/dL (74-106); MAGNESIUM 0.9 mg/dL (1.8-2.4); PHOSPHOROUS 3.4 mg/dL (2.5-4.9)
[2018-02-27] MEDS ORDERED: POTASSIUM CHLORIDE TABS 20 MEQ TABLET.ER (FP) PO ONE (10:12)
[2018-02-27] MEDS ORDERED: SODIUM CHLORIDE 500 ML IV STA (10:14)
[2018-02-27] MEDS ORDERED: SODIUM CHLORIDE 0.9%/KCL 20 MEQ/1,000 ML INFUS.BAG IV SCH ×2 (10:15→15:34)
--- NOTE | 2018-02-27 10:15 | PN ---
Teaching Attending Note Name of Resident: Cely Springer ATTENDING PHYSICIAN STATEMENT I saw and evaluated the patient. I reviewed the resident's note and discussed the case with the resident. I agree with the resident's findings and plan as documented with exceptions below. SUBJECTIVE: Patient seen and examined. No new concerns, very anxious, asking for tylenol. OBJECTIVE: Vital Signs Period Temp Pulse Resp BP Sys/Rivera Pulse Ox Last 24 Hr 97.9 F-98.0 F 72-86 -18 102-138/55-64 99 Intake & Output 02/24/18 02/25/18 02/26/18 02/27/18 23:59 23:59 23:59 23:59 Intake Total 200 2100 1700 Balance 200 2100 1700 Weight 184 lb 6 oz General: sitting in bed in no acute distress Musculoskeletal: unchanged wound in Lumbar region with sloughing/greenish foul smelling discharge and minimal erythema at the margins, Chest; CTAB, no rales or wheezing Abdomen:soft, obese, NT, no CVA or suprapubic tenderness, positive bowel sounds Extremities: no edema Home Medications Medication Instructions Recorded Insulin (Levemir) [Levemir Vial] 35 unit SQ HS 10/28/14 Metformin HCl [Glucophage] 1,000 mg PO BID 02/25/18 Metoprolol Succinate [Toprol Xl] 50 mg PO BID 02/25/18 Pantoprazole Sodium [Protonix] 40 mg PO DAILY 02/25/18 Simvastatin 40 mg PO HS 02/25/18 Active Medications Acetaminophen (Tylenol -) 650 mg PO Q6H PRN PRN Reason: Fever Or Pain Atorvastatin Calcium (Lipitor -) 20 mg PO HS [facility] Last Admin: 02/26/18 21:07 Dose: 20 mg Heparin Sodium (Porcine) (Heparin -) 5,000 unit SQ TID [facility] Last Admin: 02/27/18 05:23 Dose: 5,000 unit Vancomycin HCl (Vancomycin 1 Gm Premix -) 1 gm in 200 mls @ 166.667 mls/hr IVPB BID@0000,1200 [facility]; Protocol Last Admin: 02/27/18 00:11 Dose: 166.667 mls/hr Piperacillin Sod/Tazobactam (Sod 3.375 gm/ Dextrose) 50 mls @ 100 mls/hr IVPB Q6H-IV [facility]; Protocol Last Admin: 02/27/18 02:10 Dose: 100 mls/hr Potassium Chloride/Sodium Chloride (Ns+20 Meq Kcl -) 20 meq in 1,000 mls @ 100 mls/hr IV ASDIR [facility] Sodium Chloride (Normal Saline -) 500 mls @ 500 mls/hr IV ASDIR STA Stop: 02/27/18 11:13 Insulin Aspart (Novolog Vial Sliding Scale -) 1 vial SQ ACHS [facility]; Protocol Last Admin: 02/27/18 06:07 Dose: Not Given Insulin Detemir (Levemir Vial) 5 units SQ HS [facility] Last Admin: 02/26/18 21:08 Dose: 5 unit Metoprolol Succinate (Toprol Xl -) 50 mg PO BID [facility] Last Admin: 02/26/18 21:07 Dose: 50 mg Ondansetron HCl (Zofran Injection) 4 mg IVPUSH Q6H PRN PRN Reason: NAUSEA AND/OR VOMITING Pantoprazole Sodium (Protonix -) 40 mg PO DAILY [facility] Last Admin: 02/26/18 10:29 Dose: 40 mg Laboratory Results - last 24 hr 02/26/18 02/26/18 02/26/18 08:45 11:49 17:40 WBC RBC Hgb Hct MCV MCH MCHC RDW Plt Count MPV Absolute Neuts (auto) Neutrophils % Lymphocytes % Monocytes % Eosinophils % Basophils % Nucleated RBC % Sodium Potassium Chloride Carbon Dioxide Anion Gap BUN Creatinine Creat Clearance w eGFR POC Glucometer 93 158 Random Glucose Lactic Acid 1.3 Calcium Phosphorus Magnesium 02/26/18 02/27/18 02/27/18 20:53 05:21 06:00 WBC 9.5 RBC 3.39 L Hgb 9.9 L Hct 30.4 L MCV 89.5 MCH 29.2 MCHC 32.7 RDW 13.7 Plt Count 156 D MPV 11.3 H Absolute Neuts (auto) 7.1 Neutrophils % 75.1 Lymphocytes % 9.4 Monocytes % 6.3 Eosinophils % 8.9 H D Basophils % 0.3 Nucleated RBC % 0 Sodium Potassium Chloride Carbon Dioxide Anion Gap BUN Creatinine Creat Clearance w eGFR POC Glucometer 176 110 Random Glucose Lactic Acid Calcium Phosphorus Magnesium 02/27/18 06:00 WBC RBC Hgb Hct MCV MCH MCHC RDW Plt Count MPV Absolute Neuts (auto) Neutrophils % Lymphocytes % Monocytes % Eosinophils % Basophils % Nucleated RBC % Sodium 143 Potassium 3.2 L Chloride 108 H Carbon Dioxide 21 Anion Gap 14 BUN 11 Creatinine 1.4 H Creat Clearance w eGFR 39.49 POC Glucometer Random Glucose 104 Lactic Acid Calcium 7.4 L Phosphorus 3.4 Magnesium 0.9 L Microbiology 02/25/18 13:35 Blood - Peripheral Venous Blood Culture - Preliminary NO GROWTH OBTAINED AFTER 24 HOURS, INCUBATION TO CONTINUE FOR 4 DAYS. 02/25/18 13:35 Blood - Peripheral Venous Blood Culture - Preliminary NO GROWTH OBTAINED AFTER 24 HOURS, INCUBATION TO CONTINUE FOR 4 DAYS. 02/25/18 13:20 Back Wound Culture - Preliminary Staphylococcus Latex Coag Pos Pseudomonas Species Pending Organism Pending Organism#2 02/25/18 14:12 Urine - Urine Clean Catch Urine Culture - Final NO GROWTH OBTAINED ASSESSMENT AND PLAN: ASSESSMENT/PLAN: 53 yof with PMHx of laminectomy in 12/2017, IDDM, HTN, re-admitted in 01/2018 with dehydration/LUIS with cr 4.4, post op course complicated by wound dehiscence , followed by Dr. Fernandez in wound care clinic, s/p wound debridement on 02/17, admitted with wound infection -laminectomy complicated by wound dehiscence/wound infection -LUIS, ?from decreased oral intake, given severe anxiety disorder, vs vanco related, r/o obstructive uropathy -Recent diarrhea, no concerns inhouse -Lactic acidosis, likely diarrhea/hypovolumia +/- metformin, resolved -IDDM -HTN Plan: Zosyn/vancomycin, ID input noted. Cr rising. Check vanco level before next dose. Wound cx noted. CT LS spine results noted. reviewed with Dr. Rubalcava, Case discussed with Dr. Fernandez/Dr Rubalcava, will follow up for possible OR debridement. NPO after midnight, in case. Recurrent lactic acidosis, ?Metformin, no diarrhea or decreased oral intake noted inhouse. Does not look septic. Additional 500 ml IVF bolus. Add KCL to IVF. Bladder scan x 1. Vanco dose monitoring Renal imaging and biodiesel technology manager consult if fails to improve. Stool C difficile if concerning Diarrhea. Hold metformin, Continue metoprolol as tolerated. No further hypoglycemia, BS 90s-100s, levemir 5 units hs, ISS. Diabetic diet, monitor for now. DVTPPX with heparin Dispo - pending clinical improvement. Plan discussed with patient and RN in detail, all questions answered.
--- NOTE | 2018-02-27 10:28 | PN ---
Progress Note, Physician History of Present Illness: Pt is alert. Had back pain last night but none currently. Remains afebrile, without any new complaints. - Current Medication List Current Medications: Active Medications Acetaminophen (Tylenol -) 650 mg PO Q6H PRN PRN Reason: Fever Or Pain Atorvastatin Calcium (Lipitor -) 20 mg PO HS [facility] Last Admin: 02/26/18 21:07 Dose: 20 mg Heparin Sodium (Porcine) (Heparin -) 5,000 unit SQ TID [facility] Last Admin: 02/27/18 05:23 Dose: 5,000 unit Vancomycin HCl (Vancomycin 1 Gm Premix -) 1 gm in 200 mls @ 166.667 mls/hr IVPB BID@0000,1200 [facility]; Protocol Last Admin: 02/27/18 00:11 Dose: 166.667 mls/hr Piperacillin Sod/Tazobactam (Sod 3.375 gm/ Dextrose) 50 mls @ 100 mls/hr IVPB Q6H-IV [facility]; Protocol Last Admin: 02/27/18 02:10 Dose: 100 mls/hr Potassium Chloride/Sodium Chloride (Ns+20 Meq Kcl -) 20 meq in 1,000 mls @ 100 mls/hr IV ASDIR [facility] Sodium Chloride (Normal Saline -) 500 mls @ 500 mls/hr IV ASDIR STA Stop: 02/27/18 11:13 Insulin Aspart (Novolog Vial Sliding Scale -) 1 vial SQ ACHS [facility]; Protocol Last Admin: 02/27/18 06:07 Dose: Not Given Insulin Detemir (Levemir Vial) 5 units SQ HS [facility] Last Admin: 02/26/18 21:08 Dose: 5 unit Metoprolol Succinate (Toprol Xl -) 50 mg PO BID [facility] Last Admin: 02/26/18 21:07 Dose: 50 mg Ondansetron HCl (Zofran Injection) 4 mg IVPUSH Q6H PRN PRN Reason: NAUSEA AND/OR VOMITING Pantoprazole Sodium (Protonix -) 40 mg PO DAILY [facility] Last Admin: 02/26/18 10:29 Dose: 40 mg - Objective Vital Signs: Vital Signs Temperature 97.9 F 02/27/18 07:00 Pulse Rate 72 02/27/18 07:00 Respiratory Rate 18 02/27/18 07:00 Blood Pressure 102/55 02/27/18 07:00 O2 Sat by Pulse Oximetry (%) 99 02/26/18 21:00 Constitutional: Yes: No Distress Cardiovascular: Yes: Regular Rate and Rhythm Respiratory: Yes: Regular Gastrointestinal: Yes: Normal Bowel Sounds, Soft Wound/Incision: Yes: Dressing Dry and Intact Labs: CBC, BMP 02/27/18 06:00 02/27/18 06:00 INR, PTT INR 1.16 (0.83-1.09) H 02/25/18 13:35 - ....Imaging Cat Scan: Report Reviewed Problem List - Problems (1) Delayed surgical wound healing Code(s): T81.89XA - OTH COMPLICATIONS OF PROCEDURES, NEC, INIT (2) Diabetes mellitus Code(s): E11.9 - TYPE 2 DIABETES MELLITUS WITHOUT COMPLICATIONS Qualifiers: Qualified Code(s): E11.9 - Type 2 diabetes mellitus without complications (3) HTN (hypertension) Code(s): I10 - ESSENTIAL (PRIMARY) HYPERTENSION Qualifiers: Qualified Code(s): I10 - Essential (primary) hypertension (4) Lumbar disc disease Code(s): M51.9 - UNSP THORACIC, THORACOLUM AND LUMBOSACR INTVRT DISC DISORDER Assessment/Plan 53 y.o. female with PMH of IDDM, HLD, GERD, s/p laminectomy on 01/03/18 with debridement of wound site on 02/17/18 presenting with c/o green/foul-smelling drainage from wound site Infected lumbar surgical wound site s/p laminectomy IDDM Leukocytosis - resolved LUIS - creatinine increased to 1.4 -- Lumbar CT results noted - no clear findings of abscess/bone erosion -- continue Zosyn -- hold Vancomycin for now, check level and monitor renal function -- f/u final wound culture results -- neurosurgical follow up -- continue wound care monitor vitals closely
[2018-02-27] MEDS: PANTOPRAZOLE 40 MG TABLET (FP) PO SCH (10:34)
--- NOTE | 2018-02-27 13:54 | EKG ---
Test Reason : Blood Pressure : / mmHG Vent. Rate : 091 BPM Atrial Rate : 091 BPM P-R Int : 116 ms QRS Dur : 082 ms QT Int : 368 ms P-R-T Axes : 033 -20 035 degrees QTc Int : 452 ms POOR DATA QUALITY, INTERPRETATION MAY BE ADVERSELY AFFECTED NORMAL SINUS RHYTHM NONSPECIFIC ST AND T WAVE ABNORMALITY ABNORMAL ECG WHEN COMPARED WITH ECG OF 21-FEB-2018 07:54, T WAVE INVERSION NOW EVIDENT IN ANTERIOR LEADS Confirmed by OSMIN KIRAN MD ([id number]) on 02/27/2018 1:53:46 PM Referred By: Confirmed By:OSMIN KIRAN MD
--- NOTE | 2018-02-27 14:01 | CON.PSY ---
Psychiatry Consult Chief Complaint: 53 year old female with hiatory of Surgery and chronic medical condition and Decubitus ulcer. patient seen for psych eval for depression. Symptoms: reports: Depressed Mood, Anxiety - Previous Psychiatric Treatment Outpatient: None Inpatient: None - Previous Substance Abuse Treatment Outpatient: None Inpatient: None - Current Medications Current Medications: Active Medications Acetaminophen (Tylenol -) 650 mg PO Q6H PRN PRN Reason: Fever Or Pain Last Admin: 02/27/18 10:34 Dose: 650 mg Atorvastatin Calcium (Lipitor -) 20 mg PO HS [facility] Last Admin: 02/26/18 21:07 Dose: 20 mg Heparin Sodium (Porcine) (Heparin -) 5,000 unit SQ TID [facility] [place] Last Admin: 02/27/18 05:23 Dose: 5,000 unit Piperacillin Sod/Tazobactam (Sod 3.375 gm/ Dextrose) 50 mls @ 100 mls/hr IVPB Q6H-IV [facility]; Protocol Last Admin: 02/27/18 10:33 Dose: 100 mls/hr Potassium Chloride/Sodium Chloride (Ns+20 Meq Kcl -) 20 meq in 1,000 mls @ 100 mls/hr IV ASDIR [facility] Insulin Aspart (Novolog Vial Sliding Scale -) 1 vial SQ ACHS [facility]; Protocol Last Admin: 02/27/18 11:54 Dose: 2 units Insulin Detemir (Levemir Vial) 5 units SQ HS [facility] [place] Last Admin: 02/26/18 21:08 Dose: 5 unit Metoprolol Succinate (Toprol Xl -) 50 mg PO BID [facility] [place] Last Admin: 02/27/18 10:34 Dose: 50 mg Ondansetron HCl (Zofran Injection) 4 mg IVPUSH Q6H PRN PRN Reason: NAUSEA AND/OR VOMITING Pantoprazole Sodium (Protonix -) 40 mg PO DAILY [facility] [place] Last Admin: 02/27/18 10:34 Dose: 40 mg - Allergies Allergies: Allergies Allergy/AdvReac Type Severity Reaction Status Date / Time No Known Allergies Allergy Verified 02/25/18 11:53 - Current Living Status Usual Living Arrangement: With Child - Current Mental Status Evaluation Appearance: Well Groomed Attitude: Cooperative - Affect Affect: Constrictive Appropriateness: Appropriate to Content - Mood Mood: Depressed - Speech/Language Expressive: Coherent Receptive: Age Appropriate Comprehension of Spoken Words - Psychomotor Activity Psychomotor Activity: Normal - Thought Process Thought Process: Intact - Thought Content Hallucinations: Absent Delusions: Absent - Self Perception Self Perception: No Impairment - Cognition Attention: Alert Orientation: Time Memory, Immediate Recall: Intact Memory, Short Term: 3/3 Memory, Remote with Promptin/3 - Concentration Serial Sevens Intact: Yes Simple Calculations Intact: Yes - Abstraction Proverb Interpretation: Intact Judgement: Intact - Insight Insight: Intact - Suicidal Ideation Suicidal Ideation: No - Homicidal Ideation Homicidal Ideation: No Assessment/Plan 1) Suggest Cymbalta 20mg po od fotr depressionand anxierty. 2) Patient is reluctant to start an antidepressant and would like to think about it.
[2018-02-27] MEDS ORDERED: SODIUM CHLORIDE 1,000 ML IV STA ×3 (14:17→15:34)
[2018-02-27] MEDS ORDERED: NYSTATIN POWDER 100,000 UNITS/GM - 15 GM TOPICAL POWDER TP SCH (14:30)
--- NOTE | 2018-02-27 14:43 | RAPID ---
Physical Examination Vital Signs: Vital Signs Temperature 98.0 F 02/27/18 14:00 Pulse Rate 74 02/27/18 14:00 Respiratory Rate 17 02/27/18 14:00 Blood Pressure 93/46 02/27/18 14:00 O2 Sat by Pulse Oximetry (%) 99 02/27/18 10:34 Labs: CBC, BMP 02/27/18 06:00 02/27/18 06:00 Rapid Response - Rapid Response Assessment: Rapid response called at 2:15pm. Patient was noted to be pale and diaphoretic after she came out of the bathroom. Patient reported dizziness as soon she sat up from the bed, got to the bathroom where she reported to strain and as she went out, she was noted by nursing to be pale, diaphoretic, dizzy and feeling like she was going to pass out. She was supported back to bed, placed in trendelenburg position. vs: 105/61 HR 102 O2 sat 100 on room air Pale, anxious, awake, interactive, moving all extremities freely. Otherwise, unchanged exam. IV fluids bolus started BP repeated 95/49, HR 96 Blood glu 211 continue with aggressive hydration BP improved to SBP 140s Patient mentating well throughout. EKG done. Sinus rhythm 91, ST depression </=1mm in V3-V6 Troponin ordered Transfer to tele. Cardiology consulted. Case discussed and EKG reviewed with Dr. Camara. Recent surgery in December 2017 with no rylan-operative concerns. Okay for OR tomorrow as discussed with him if no concerns. Total critical time 45 minutes.
--- NOTE | 2018-02-27 15:03 | CON.CARD ---
Consult Consult Specialty:: Cardiology Referred by:: Hospitalist Medicine Reason for Consultation:: Preoperative cardiovascular evaluation, vasovagal episode - History of Present Illness Chief Complaint: Wound dehiscence, vasovagal History of Present Illness: Patient is a 52 year old female with underlying history of HTN, hypercholesterolemia, type 2 DM, family history of hypertrophic cardiomyopathy s /p laminectomy on 01/03/18 with debridement of wound site on 02/17/18 presenting with c/o green/foul-smelling drainage from wound site planned for OR debridement in AM. Today, she experienced pallor, diaphoresis, dizziness and nausea without true syncope while having bowel movement, she denies chest pain, shortness of breath, palpitations, near or true syncope, paroxysmal nocturnal dyspnea or orthopnea or LE edema. Transferred to telemetry and sxs improved with hydration. 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: Alzheimer's, CVA, Dementia, Migraine, Multiple Sclerosis, Peripheral Neuropathy, Parkinson's, Seizure, Syncope, TIA, Vertigo, Other Cardio/Vascular: Yes: HTN, Hyperlipdemia Pulmonary: No: Asthma, Bronchitis, Cancer, COPD, O2 Dependent, Pneumonia, Previously Intubated, Pulmonary Embolus, Pulmonary Fibrosis, Sleep Apnea, Other Gastrointestinal: No: Ascites, Cancer, Constipation, Crohn's Disease, Diverticulitis, Diverticulosis, Esophageal Varices, Gastritis, GERD, GI Bleed, Hemorrhoids, Hiatal Hernia, Inflamatory Bowel Disease, Irritable Bowel Disease, Pancreatitis, Peptic Ulcer Disease, Ulcerative Colitis, Other Hepatobiliary: No: Cirrhosis, Cholelithiasis, Cholecystitis, Choledocholithiasis , Hepatitis A, Hepatitis B, Hepatitis C, Other Renal/: No: Renal Failure, Renal Inusuff, BPH, Cancer, Hematuria, Hemodialysis , Neurogenic Bladder, Renal Calculi, UTI, Other Infectious Disease: Yes: Other (Left leg abscess s/p I+D +staph aureus) Psych: Yes: Anxiety Musculoskeletal: No: Bursitis, Chronic low back pain, Hemiparesis, Hemiplegia, Osteoarthritis, Paraplegia, Other Rheumatology: No: Fibromyalgia, Gout, Lupus, Rheumatoid Arthritis, Sarcoidosis, Vasculitis, Other ENT: No: Allergic Rhinitis, Sinusitis, Other Endocrine: Yes: Diabetes Mellitus Dermatology: No: Basal Cell, Cellulitis, Eczema, Melanoma, Psoriasis, Squamous Cell, Other - Past Surgical History Past Surgical History: Yes: Laminectomy - Alcohol/Substance Use Hx Alcohol Use: No - Smoking History Smoking history: Never smoked Have you smoked in the past 12 months: No Aproximately how many cigarettes per day: 0 - Social History Usual Living Arrangement: With Child Home Medications - Allergies Allergies/Adverse Reactions: Allergies Allergy/AdvReac Type Severity Reaction Status Date / Time No Known Allergies Allergy Verified 02/25/18 11:53 - Home Medications Home Medications: Ambulatory Orders Insulin (Levemir) [Levemir Vial] 35 unit SQ HS 10/28/14 Metformin HCl [Glucophage] 1,000 mg PO BID 02/25/18 Metoprolol Succinate [Toprol Xl] 50 mg PO BID 02/25/18 Pantoprazole Sodium [Protonix] 40 mg PO DAILY 02/25/18 Simvastatin 40 mg PO HS 02/25/18 Review of Systems - Review of Systems Constitutional: reports: Diaphoresis Gastrointestinal: reports: Nausea Neurological: reports: Dizziness Vital Signs: Vital Signs Temperature 98.0 F 02/27/18 14:00 Pulse Rate 74 02/27/18 14:00 Respiratory Rate 17 02/27/18 14:00 Blood Pressure 93/46 02/27/18 14:00 O2 Sat by Pulse Oximetry (%) 99 02/27/18 10:34 Constitutional: Yes: No Distress, Calm Neck: Yes: Supple Respiratory: Yes: Regular, CTA Bilaterally Gastrointestinal: Yes: Normal Bowel Sounds, Soft Cardiovascular: Yes: Regular Rate and Rhythm JVD: No Carotid Bruit: No Heart Sounds: Yes: S1, S2 Edema: No - Other Data Labs, Other Data: CBC, BMP 02/27/18 06:00 02/27/18 06:00 INR, PTT INR 1.16 (0.83-1.09) H 02/25/18 13:35 NSR @ [address]-T changes Imaging - Results Chest X-ray: Report Reviewed (NAD) Problem List - Problems (1) Vasovagal near syncope Code(s): R55 - SYNCOPE AND COLLAPSE (2) Delayed surgical wound healing Code(s): T81.89XA - OTH COMPLICATIONS OF PROCEDURES, NEC, INIT Qualifiers: Encounter type: subsequent encounter Qualified Code(s): T81.89XD - Other complications of procedures, not elsewhere classified, subsequent encounter (3) LUIS (acute kidney injury) Code(s): N17.9 - ACUTE KIDNEY FAILURE, UNSPECIFIED (4) Diabetes mellitus Code(s): E11.9 - TYPE 2 DIABETES MELLITUS WITHOUT COMPLICATIONS Qualifiers: Diabetes mellitus type: type 2 Diabetes mellitus oil heaterman insulin use: without snf use Diabetes mellitus complication status: without complication Qualified Code(s): E11.9 - Type 2 diabetes mellitus without complications (5) HTN (hypertension) Code(s): I10 - ESSENTIAL (PRIMARY) HYPERTENSION Qualifiers: Hypertension type: essential hypertension Qualified Code(s): I10 - Essential (primary) hypertension (6) Hypercholesterolemia Code(s): E78.00 - PURE HYPERCHOLESTEROLEMIA, UNSPECIFIED (7) History of laminectomy Code(s): Z98.890 - OTHER SPECIFIED POSTPROCEDURAL STATES Assessment/Plan 01/03/2018 Echo images reviewed from machine. Briefly, Technically difficult study, grossly normal LV systolic function, No significant intracavitary or LVOT gradient seen. No significant valvular abnormalities seen. 1. Infected lumbar surgical wound site s/p laminectomy 2. Vasovagal near syncope 3. HTN 4. Hypercholesterolemia 5. DM (type II) 6. Family history of hypertrophic cardiomyopathy 7. LUIS with hypokalemia PLAN: 1. No absolute contraindication for surgery in view of absence of ischemic symptoms, decompensated congestive heart failure or malignant arrhythmias. Echocardiography does not reveal evidence of hypertrophic obstructive cardiomyopathy 2. Continue Metoprolol 50 bid, Zocor 40 qhs, Accupril held pending renal recovery, replete K 3. IVF resuscitation 4. Complete abx course per ID 5. Thank you for consultative opportunity
--- NOTE | 2018-02-27 16:43 | PN ---
Physical Exam: SUBJECTIVE: Patient seen and examined at bedside. Rapid response called at 2: 15pm. Patient was noted to be pale and diaphoretic after she came out of the bathroom. Patient reported dizziness as soon she sat up from the bed, got to the bathroom where she reported to strain and as she went out, she was noted by nursing to be pale, diaphoretic, dizzy and feeling like she was going to pass out. She was supported back to bed, placed in trendelenburg position. IV fluid bolus given, Trops and EKG done. BP improved. Pt transferred to tele. Pt also c/o diffuse, cramping abdominal pain 8/10 accompanied by nausea that started when she was in the bathroom. No vomiting, no diarrhea. OBJECTIVE: Vital Signs Period Temp Pulse Resp BP Sys/Rivera Pulse Ox Last 24 Hr 97.9 F-98.4 F 72-80 17-18 93-128/46-78 99-99 GENERAL: The patient is awake, alert, and fully oriented, in no acute distress HEAD: Normal with no signs of trauma. NECK: Trachea midline, full range of motion, supple. LUNGS: Breath sounds equal, clear to auscultation bilaterally. HEART: Regular rate and rhythm, S1, S2 without murmur, rub or gallop. ABDOMEN: Soft, nontender, nondistended, normoactive bowel sounds. EXTREMITIES: 2+ pulses, warm, well-perfused, no edema. NEUROLOGICAL: Cranial nerves II through XII grossly intact. Normal speech, gait not observed. PSYCH: Normal mood, normal affect. SKIN: Warm, dry, normal turgor, no rashes or lesions noted Laboratory Results - last 24 hr 02/26/18 02/26/18 02/27/18 17:40 20:53 05:21 WBC RBC Hgb Hct MCV MCH MCHC RDW Plt Count MPV Absolute Neuts (auto) Neutrophils % Lymphocytes % Monocytes % Eosinophils % Basophils % Nucleated RBC % Sodium Potassium Chloride Carbon Dioxide Anion Gap BUN Creatinine Creat Clearance w eGFR POC Glucometer 158 176 110 Random Glucose Calcium Phosphorus Magnesium Creatine Kinase Troponin I Random Vancomycin 02/27/18 02/27/18 02/27/18 06:00 06:00 11:51 WBC 9.5 RBC 3.39 L Hgb 9.9 L Hct 30.4 L MCV 89.5 MCH 29.2 MCHC 32.7 RDW 13.7 Plt Count 156 D MPV 11.3 H Absolute Neuts (auto) 7.1 Neutrophils % 75.1 Lymphocytes % 9.4 Monocytes % 6.3 Eosinophils % 8.9 H D Basophils % 0.3 Nucleated RBC % 0 Sodium 143 Potassium 3.2 L Chloride 108 H Carbon Dioxide 21 Anion Gap 14 BUN 11 Creatinine 1.4 H Creat Clearance w eGFR 39.49 POC Glucometer 155 Random Glucose 104 Calcium 7.4 L Phosphorus 3.4 Magnesium 0.9 L Creatine Kinase Troponin I Random Vancomycin 02/27/18 02/27/18 02/27/18 11:58 14:17 14:39 WBC RBC Hgb Hct MCV MCH MCHC RDW Plt Count MPV Absolute Neuts (auto) Neutrophils % Lymphocytes % Monocytes % Eosinophils % Basophils % Nucleated RBC % Sodium Potassium Chloride Carbon Dioxide Anion Gap BUN Creatinine Creat Clearance w eGFR POC Glucometer 211 Random Glucose Calcium Phosphorus Magnesium Creatine Kinase 41 Troponin I 0.03 Random Vancomycin 19.96 Active Medications Generic Name Dose Route Start Last Admin Trade Name Freq PRN Reason Stop Dose Admin Acetaminophen 650 mg 02/27/18 15:34 Tylenol - PO Q6H PRN Fever Or Pain Atorvastatin Calcium 20 mg 02/27/18 22:00 Lipitor - PO HS [facility] Heparin Sodium (Porcine) 5,000 unit 02/27/18 22:00 Heparin - SQ TID [facility] Potassium Chloride/Sodium Chloride 20 meq in 1,000 mls @ 100 mls/hr 02/27/18 15:34 Ns+20 Meq Kcl - IV ASDIR [facility] Piperacillin Sod/Tazobactam 50 mls @ 100 mls/hr 02/27/18 21:00 Sod 3.375 gm/ Dextrose IVPB Q6H-IV [facility] Protocol Insulin Aspart 1 vial 02/27/18 16:30 Novolog Vial Sliding Scale - SQ ACHS [facility] Protocol Insulin Detemir 5 units 02/27/18 22:00 Levemir Vial SQ HS [facility] Metoprolol Succinate 50 mg 02/27/18 22:00 Toprol Xl - PO BID [facility] Nystatin 1 applic 02/28/18 10:00 Nystop Powder - TP DAILY [facility] Ondansetron HCl 4 mg 02/27/18 15:34 Zofran Injection IVPUSH Q6H PRN NAUSEA AND/OR VOMITING Pantoprazole Sodium 40 mg 02/28/18 10:00 Protonix - PO DAILY [facility] ASSESSMENT/PLAN: Patient is a 53 year old female with past medical history significant for recent laminectomy (01/03/18), presented with foul-smelling dehiscent wound on L -spine. #Infected Lumbar surgical wound site s/p laminectomy -wound Cx preliminary report: Pseudomonas, S. aureus (MSSA) -Dr. Bailey consulted. Recommendations appreciated. -Continue Zosyn 3.375mg -Cr increased to 1.4 -Leukocytosis, resolved (WBC 9.6) -Hold Vancomycin for now, vanc level 19.96 -Proper wound care. -Dr. Rubalcava consulted. Recommendations appreciated. -For debridement tomorrow. -NPO after midnight. -L-spine CT showed no definite signs of abscess #Dehydration 2/2 n/v/d -NBNB vomit. Resolved -Watery diarrhea. Resolved -Pt now c/o of diffuse abdominal pain and nausea. -No vomiting, no diarrhea. Soft, nontender, nondistended abdomen with NABS. -Maalox 30ml given PRN -Zofran and Protonix PRN #LUIS -Cr 1.4 -likely 2/2 to DHN from poor oral intake vs vancomycin related -Bladder scan x1 <12ml; good urine output -IVF started. #Hypokalemia -K 3.2 -KCl 40meq PO given -IV NS with KCl 20meq at 125ml/hr x1 -monitor bmp #Vasovagal near syncope -IV fluids bolus started -BP repeated 95/49, HR 96 -Blood glu 211 -continue with aggressive hydration -BP improved to SBP 140s -EKG done. Sinus rhythm 91, ST depression </=1mm in V3-V6 -Troponin 0.03. Will trend troponin. -Transfer to tele. -Dr. Camara consulted. Recommendations appreciated. -Case discussed and EKG reviewed with Dr. Camara. -Recent surgery in December 2017 with no rylan-operative concerns. -Okay for OR tomorrow as discussed with him if no concerns. #Anxiety, Depression -Dr. Lemos consulted. Recommendations appreciated. -Cymbalta 20mg OD suggested for depression and anxiety. -Pt reluctant to start an antidepressant and would like to think about it. #DM -BGM ACHS -ISS -holding metformin #HTN -c/w Metoprolol 50 bid #HLD -c/w simvastatin 40 hs #GERD -c/w protonix #FEN -not on any standing fluids -hypoK, replete K, routine bmp monitoring -Na controlled, low fat, DM diet #PPx -Heparin 5000 unit sq tid #Dispo -Med/Surg Visit type - Emergency Visit Emergency Visit: Yes ED Registration Date: 02/25/18 Care time: The patient presented to the Emergency Department on the above date and was hospitalized for further evaluation of their emergent condition. - New Patient This patient is new to me today: Yes Date on this admission: 02/27/18 - Critical Care Critical Care patient: No
[2018-02-27] MEDS: SODIUM CHLORIDE 1,000 ML IV SCH (17:00)
[2018-02-27] MEDS ORDERED: MAG HYDROX/AL HYDROX/SIMETH 30 ML UNIT-DOSE CUP PO PRN (17:07)
[2018-02-27] MEDS: SODIUM CHLORIDE 0.9%/KCL 20 MEQ/1,000 ML INFUS.BAG IV SCH (17:46)
[2018-02-27] MEDS: ONDANSETRON 4 MG/2 ML VIAL IVPUSH PRN (20:51)
[2018-02-27] MEDS ORDERED: MAGNESIUM SULF 50% (8.12 MEQ/2 ML-1 GM VIAL) IVPB ONE (21:00)
[2018-02-27] MEDS ORDERED: INSULIN (LEVEMIR) 100 UNITS/ML UNITS SQ SCH (22:00)
[2018-02-27] MEDS ORDERED: ATORVASTATIN CA 20 MG TABLET (FP) PO SCH (22:00)
[2018-02-27] MEDS ORDERED: MELATONIN 5 MG TABLETS PO PRN (22:05)
[2018-02-27] MEDS ORDERED: SODIUM CHLORIDE 0.9% 500 ML INFUS.BAG IV ONE ×2 (23:20→23:22)
[2018-02-27] MEDS ORDERED: SODIUM CHLORIDE 1,000 ML IV ONE (23:30)
[2018-02-28 00:47] LABS: ANION GAP 16 MMOL/L (8-16); BLOOD UREA NITROGEN 15 mg/dL (7-18); CHLORIDE 110 mmol/L (98-107); CO2 16 mmol/L (21-32); GLUCOSE,RANDOM 276 mg/dL (74-106); MAGNESIUM 1.5 mg/dL (1.8-2.4); POTASSIUM 4.6 mmol/L (3.5-5.1); SODIUM 142 mmol/L (136-145)
[2018-02-28] MEDS ORDERED: DEXTROSE 5%-WATER - 50 ML IVPB ONE ×3 (01:05→14:37)
[2018-02-28] MEDS ORDERED: PIPERACILLIN/TAZOBACTAM 3.375 GM VIAL IVPB ONE ×3 (01:05→14:36)
[2018-02-28] MEDS: PIPERACILLIN/TAZOB 3.375 GM 3.375 GM in DEXTROSE 5%-WATER - 50 ML IVPB SCH ×2 (02:42→10:04)
[2018-02-28] MEDS: SODIUM CHLORIDE 0.9%/KCL 20 MEQ/1,000 ML INFUS.BAG IV SCH (02:42)
[2018-02-28] MEDS: ONDANSETRON 4 MG/2 ML VIAL IVPUSH PRN (05:37)
[2018-02-28] MEDS: HEPARIN NA (PORCINE) 5,000 UNITS/ML 1ML VIAL SQ SCH (06:20)
[2018-02-28] MEDS: INSULIN SLIDING SCALE (NOVOLOG) 1 VIAL SQ SCH ×2 (06:21→10:51)
[2018-02-28 07:16] LABS: BASO % 0.8 % (0-2.0); EOS % 2.7 % (0-4.5); HEMATOCRIT 32.6 % (32.4-45.2); HEMOGLOBIN 10.5 GM/dL (10.7-15.3); LYMPH % 14.3 % (8-40); MCH 29.2 pg (25.7-33.7); MCHC 32.3 g/dl (32.0-36.0); MEAN CELL VOLUME 90.2 fl (80-96); NEUT % 76.2 % (42.8-82.8); PLATELET COUNT 106 K/MM3 (134-434); RBC 3.62 M/mm3 (3.60-5.2); RDW 13.9 % (11.6-15.6); WHITE BLOOD COUNT 8.5 K/mm3 (4.0-10.0)
[2018-02-28 07:46] LABS: ALBUMIN 2.6 g/dl (3.4-5.0); ANION GAP 15 MMOL/L (8-16); BILIRUBIN,TOTAL 0.4 mg/dL (0.2-1.0); BLOOD UREA NITROGEN 14 mg/dL (7-18); CHLORIDE 115 mmol/L (98-107); CO2 16 mmol/L (21-32); CREATININE 1.9 mg/dL (0.55-1.02); GLUCOSE,RANDOM 181 mg/dL (74-106); POTASSIUM 4.5 mmol/L (3.5-5.1); SGOT/AST 295 U/L (15-37); SGPT/ALT 133 U/L (12-78); SODIUM 146 mmol/L (136-145); TOT PROT 5.5 g/dl (6.4-8.2)
[2018-02-28 07:47] LABS: ALK PHOS 110 U/L (45-117)
--- NOTE | 2018-02-28 07:57 | PN ---
Progress Note (short form) - Note Progress Note: Chief complaint: Events noted, notes reviewed, complaining of nausea and generalized weakness, denies any chest pain or dyspnea, wide complex arrhythmia non sustained noted History of Present Illness: Seen and examined on telemetry. Events noted, notes reviewed, complaining of nausea and generalized weakness, denies any chest pain or dyspnea, wide complex arrhythmia non sustained noted Echocardiography dated 01/03/2018 revealed grossly normal LV systolic function , No significant intra-cavitary or LVOT gradient seen, no significant valvular abnormalities seen Allergies: NKA. Medical therapy currently includes: Current Medications Acetaminophen (Tylenol -) 650 mg PO Q6H PRN PRN Reason: Fever Or Pain Al Hydroxide/Mg Hydroxide (Mylanta Oral Suspension -) 30 ml PO Q6H PRN PRN Reason: DYSPEPSIA Last Admin: 02/27/18 17:47 Dose: 30 ml Atorvastatin Calcium (Lipitor -) 20 mg PO HS [facility] Last Admin: 02/27/18 21:41 Dose: 20 mg Heparin Sodium (Porcine) (Heparin -) 5,000 unit SQ TID [facility] Last Admin: 02/28/18 06:20 Dose: Not Given Piperacillin Sod/Tazobactam (Sod 3.375 gm/ Dextrose) 50 mls @ 100 mls/hr IVPB Q6H-IV [facility]; Protocol Last Admin: 02/28/18 02:42 Dose: 100 mls/hr Potassium Chloride/Sodium Chloride (Ns+20 Meq Kcl -) 20 meq in 1,000 mls @ 125 mls/hr IV ASDIR [facility] Last Admin: 02/28/18 02:42 Dose: 125 mls/hr Insulin Aspart (Novolog Vial Sliding Scale -) 1 vial SQ ACHS [facility]; Protocol Last Admin: 02/28/18 06:21 Dose: Not Given Insulin Detemir (Levemir Vial) 5 units SQ HS [facility] Last Admin: 02/27/18 21:40 Dose: 5 units Melatonin (Melatonin) 5 mg PO HS PRN PRN Reason: INSOMNIA Last Admin: 02/27/18 22:13 Dose: 5 mg Metoprolol Succinate (Toprol Xl -) 50 mg PO BID [facility] Last Admin: 02/27/18 21:42 Dose: Not Given Nystatin (Nystop Powder -) 1 applic TP DAILY [facility] Ondansetron HCl (Zofran Injection) 4 mg IVPUSH Q6H PRN PRN Reason: NAUSEA AND/OR VOMITING Last Admin: 02/28/18 05:37 Dose: 4 mg Pantoprazole Sodium (Protonix -) 40 mg PO DAILY [facility] Review of Systems - Review of Systems Constitutional: denies: Chills or Fever Cardiovascular: As noted above Gastrointestinal: denies: Vomiting, Diarrhea, Constipation or Abdominal Pain reports: Nausea Genitourinary: No symptoms reported Neurological: No symptoms reported Physical Examination: Vital Signs: Last Vital Signs Temp Pulse Resp BP Pulse Ox 97.8 F 88 20 97/64 95 02/28/18 07:28 02/28/18 07:28 02/28/18 07:28 02/28/18 07:28 02/27/18 20:40 Intake & Output 02/25/18 02/26/18 02/27/18 02/28/18 23:59 23:59 23:59 23:59 Intake Total 200 2100 3375 925 Balance 200 2100 3375 925 Weight 184 lb 6 oz Neck: Supple negative JVD no bruit appreciated Heart: S1 and S2 Regular Rate and Rhythm Lungs: Diminished Breath Sounds at the Bases Abdomen: Soft benign normoactive bowel sounds Extremities: Negative edema Lab Data: CBC, BMP 02/28/18 07:05 02/28/18 07:05 ASSESSMENT: 1. Vasovagal syncope 2. Wide complex non sustained tachycardia in the setting of electrolyte abnormality and normal LV systolic function 3. Infected lumbar laminectomy surgical wound site 4. HTN 5. DM 6. Hypercholesterolemia 7. LUIS with hypokalemia, resolved hypokalemia 8. Hypernatremia 9. Anemia PLAN: 1. Continue Toprol XL hemodynamics permitting 2. To resume Accupril therapy once renal function at baseline and hemodynamics permitting 3. Correction of hypernatremia 4. Antibiotics as per the primary team 5. Counselled preventative measures in reference to the above noted presentation Vasovagal syncope Sayda Gonzalez M.D.
[2018-02-28] MEDS ORDERED: PANTOPRAZOLE 40 MG TABLET (FP) PO SCH (10:00)
[2018-02-28] MEDS ORDERED: NYSTATIN POWDER 100,000 UNITS/GM - 15 GM TOPICAL POWDER TP SCH (10:00)
--- NOTE | 2018-02-28 10:34 | PN ---
Progress Note (short form) - Note Progress Note: Surgery Patient being followed by would care for superficial wound dehissance s/p Laminectomy and decompression of L2-L3 with microsurgical discectomy and interobody cage and posterior fusion on 01/03/18. The patient was last seen in the wound care clinic with Dr Fernandez on 02/17/18 where he did a wound Debridement of skin, subcutaneous tissue was performed at incision site and the patient was scheduled to follow up in 2 weeks isaiah. She presented to [facility] ED with increasing wound drainage and pain. We discussed the case with both Dr Fernandez and Dr Rubalcava and it was decided that Dr Fernandez would defer all wound care to Dr Rubalcava at this time as Dr. Rubalcava plans to take the patient to the OR today for wound washout.
[2018-02-28 11:02] VITALS: TEMP 97.5
[2018-02-28] MEDS ORDERED: THROMBIN (BOVINE) 20,000 UNIT VIAL TP ONE (11:06)
[2018-02-28] MEDS ORDERED: LIDOCAINE 1%/EPI 1:100000 (20 ML MULTI DOSE VIAL) ONE (11:07)
[2018-02-28] MEDS ORDERED: GENTAMICIN SO4 80 MG/2 ML VIAL ONE (11:07)
[2018-02-28] MEDS ORDERED: VANCOMYCIN 1,000 MG VIAL (RESTRICTED TO ID ONLY) ONE ×2 (11:08→15:39)
[2018-02-28] MEDS ORDERED: LACTATED RINGERS SOLUTION 1,000 ML IV SCH ×2 (11:15→13:53)
[2018-02-28] MEDS ORDERED: PROMETHAZINE HCL 25 MG/1 ML VIAL IVPUSH PRN ×2 (11:15→13:53)
[2018-02-28] MEDS ORDERED: ONDANSETRON 4 MG/2 ML VIAL IVPUSH PRN ×2 (11:15→13:53)
[2018-02-28] MEDS ORDERED: PROPOFOL 20 ML ONE (11:19)
[2018-02-28] MEDS ORDERED: MIDAZOLAM HCL 2 MG/2 ML SINGLE DOSE VIAL ONE (11:20)
[2018-02-28] MEDS ORDERED: LIDOCAINE HCL/PF 2% SDV 5ML VIAL ONE (12:02)
[2018-02-28] MEDS ORDERED: ROCURONIUM BROMIDE 50 MG/5 ML VIAL ONE (12:02)
[2018-02-28] MEDS ORDERED: ePHEDrine SULFATE 50 MG/1 ML AMPULE ONE (12:16)
[2018-02-28] MEDS ORDERED: ceFAZolin SODIUM 1 GM VIAL ONE (12:39)
[2018-02-28] MEDS ORDERED: SODIUM CHLORIDE 0.9% P/F 10 ML VIAL IJ ONE (12:39)
[2018-02-28] MEDS ORDERED: ceFAZolin SODIUM 1 GM VIAL IVPB ONE (12:45)
[2018-02-28] MEDS ORDERED: KETOROLAC TROMETHAMINE 30 MG/1 ML VIAL ONE (12:59)
[2018-02-28] MEDS ORDERED: NEOSTIGMINE METHYLSULFATE 0.5 MG/ML - 10 ML MDV ONE (13:11)
[2018-02-28] MEDS ORDERED: GLYCOPYRROLATE 0.2 MG/1 ML VIAL ONE (13:11)
[2018-02-28] MEDS ORDERED: BUPIVACAINE HCL/PF 0.5% (5MG/ML) 10 ML VIAL IJ ONE (13:13)
--- NOTE | 2018-02-28 13:32 | OP ---
Operative Note - Note: Operative Date: 02/28/18 Pre-Operative Diagnosis: Lumbar incision dehiscense and infection Operation: Excisional debridement of infected lumbar incision Post-Operative Diagnosis: Same as Pre-op Surgeon: Victoriano Rubalcava Crystalizer: Raphael Toro Anesthesiologist/TAFFY CANDY MAKER: Galdino Schulte Anesthesia: General Estimated Blood Loss (mls): 5 Operative Report Dictated: Yes
--- NOTE | 2018-02-28 13:33 | SURG ---
Surgery Computer Numeric Control Setter Note Computer Numeric Control Setter: Raphael Toro PA-C Date of Service: 02/28/18 Diagnosis: Lumbar incision dehiscence and infection Procedure: Excisional debridement of infected lumbar incision I was present for the entirety of the operative procedure. For further detail, please refer to operative report.
[2018-02-28] MEDS ORDERED: ACETAMINOPHEN 325 MG TABLET (FP) PO PRN ×2 (13:53→16:54)
[2018-02-28] MEDS ORDERED: SODIUM CHLORIDE 0.9%/KCL 20 MEQ/1,000 ML INFUS.BAG IV SCH (13:53)
[2018-02-28] MEDS ORDERED: MELATONIN 5 MG TABLETS PO PRN (13:53)
[2018-02-28] MEDS ORDERED: MAG HYDROX/AL HYDROX/SIMETH 30 ML UNIT-DOSE CUP PO PRN (13:53)
[2018-02-28] MEDS ORDERED: HEPARIN NA (PORCINE) 5,000 UNITS/ML 1ML VIAL SQ SCH (14:00)
[2018-02-28] MEDS ORDERED: PROMETHAZINE HCL 25 MG/1 ML VIAL ONE (14:30)
[2018-02-28] MEDS ORDERED: PHENYLEPHRINE HCL 10 MG/1 ML SINGLE DOSE VIAL ONE (14:56)
[2018-02-28] MEDS ORDERED: PIPERACILLIN/TAZOB 3.375 GM 3.375 GM in DEXTROSE 5%-WATER - 50 ML IVPB SCH (15:00)
[2018-02-28] MEDS ORDERED: ACETAMINOPHEN INJECTION 100 ML IVPB ONE (15:43)
[2018-02-28] MEDS ORDERED: HEPARIN NA (PORCINE) 5,000 UNITS/ML 1ML VIAL ONE (15:50)
[2018-02-28] MEDS ORDERED: LORazepam 2 MG/ML SDV VIAL IVPUSH ONE (16:00)
[2018-02-28] MEDS ORDERED: VANCOMYCIN 1 GM PREMIX - 1 GM/200 ML BAG IVPB ONE (16:00)
[2018-02-28 16:06] LABS: HEMATOCRIT 29.8 % (32.4-45.2); HEMOGLOBIN 9.5 GM/dL (10.7-15.3); MCH 29.6 pg (25.7-33.7); MCHC 31.9 g/dl (32.0-36.0); MEAN CELL VOLUME 92.8 fl (80-96); MEAN PLT VOLUME 11.7 fl (7.5-11.1); PLATELET COUNT 129 K/MM3 (134-434); RBC 3.21 M/mm3 (3.60-5.2); RDW 14.4 % (11.6-15.6); WHITE BLOOD COUNT 13.1 K/mm3 (4.0-10.0)
[2018-02-28] MEDS ORDERED: LACTATED RINGERS SOLUTION 1000 ML INFUS.BAG IV ONE (16:08)
[2018-02-28] MEDS ORDERED: LACTATED RINGERS IV ONE (16:15)
[2018-02-28] MEDS ORDERED: ENOXAPARIN NA (PORCINE) 80 MG/0.8 ML DISP.SYRIN SQ ONE (16:21)
[2018-02-28] MEDS ORDERED: DOCUSATE NA 100 MG/10 ML UNIT-DOSE CUPS PO PRN (16:21)
[2018-02-28] MEDS ORDERED: EPINEPHrine 1:10,000 (P-F SYR) 1 MG/10 ML DISP.SYRIN ONE (16:29)
[2018-02-28] MEDS ORDERED: INSULIN SLIDING SCALE (NOVOLOG) 1 VIAL SQ SCH (16:30)
--- NOTE | 2018-02-28 16:30 | EKG ---
Test Reason : Blood Pressure : / mmHG Vent. Rate : 091 BPM Atrial Rate : 091 BPM P-R Int : 116 ms QRS Dur : 084 ms QT Int : 390 ms P-R-T Axes : 054 -09 203 degrees QTc Int : 479 ms NORMAL SINUS RHYTHM NONSPECIFIC ST AND T WAVE ABNORMALITY ABNORMAL ECG WHEN COMPARED WITH ECG OF 25-FEB-2018 13:57, ST NOW DEPRESSED IN ANTERIOR LEADS NONSPECIFIC T WAVE ABNORMALITY, IMPROVED IN INFERIOR LEADS T WAVE INVERSION NO LONGER EVIDENT IN ANTERIOR LEADS NONSPECIFIC T WAVE ABNORMALITY NOW EVIDENT IN LATERAL LEADS Confirmed by Vazquez Franklin ([id number]) on 02/28/2018 4:30:21 PM Referred By: DIANE Confirmed By:Vazquez Franklin
--- NOTE | 2018-02-28 16:42 | PN ---
Physical Exam: SUBJECTIVE: Patient seen and examined in the PACU before arriving in the ICU. Code 99/Rapid Response was called to the PACU before the patient arrived to the ICU, and the patient . Please see code sheet/rapid response for further details. OBJECTIVE: Vital Signs Period Temp Pulse Resp BP Sys/Rivera Pulse Ox Last 24 Hr 97.5 F-98.9 F 87-109 14-20 81-118/52-74 94-99 Laboratory Results - last 24 hr 02/27/18 02/27/18 02/28/18 16:49 21:37 00:00 WBC RBC Hgb Hct MCV MCH MCHC RDW Plt Count MPV Absolute Neuts (auto) Neutrophils % Lymphocytes % Monocytes % Eosinophils % Basophils % Nucleated RBC % Sodium 142 Potassium 4.6 Chloride 110 H Carbon Dioxide 16 L Anion Gap 16 BUN 15 Creatinine 2.0 H Creat Clearance w eGFR 26.16 POC Glucometer 285 293 Random Glucose 276 H Calcium 7.0 L Magnesium 1.5 L Total Bilirubin AST ALT Alkaline Phosphatase Total Protein Albumin Random Vancomycin 02/28/18 02/28/18 02/28/18 05:33 07:05 07:05 WBC 8.5 RBC 3.62 Hgb 10.5 L Hct 32.6 MCV 90.2 MCH 29.2 MCHC 32.3 RDW 13.9 Plt Count 106 L D MPV 11.0 Absolute Neuts (auto) 6.5 Neutrophils % 76.2 Lymphocytes % 14.3 D Monocytes % 6.0 Eosinophils % 2.7 Basophils % 0.8 Nucleated RBC % 0 Sodium Potassium Chloride Carbon Dioxide Anion Gap BUN Creatinine Creat Clearance w eGFR POC Glucometer 183 Random Glucose Calcium Magnesium Total Bilirubin AST ALT Alkaline Phosphatase Total Protein Albumin Random Vancomycin 15.74 02/28/18 02/28/18 07:05 15:15 WBC 13.1 H RBC 3.21 L Hgb 9.5 L Hct 29.8 L MCV 92.8 MCH 29.6 MCHC 31.9 L RDW 14.4 Plt Count 129 L D MPV 11.7 H Absolute Neuts (auto) Neutrophils % Lymphocytes % Monocytes % Eosinophils % Basophils % Nucleated RBC % Sodium 146 H Potassium 4.5 Chloride 115 H Carbon Dioxide 16 L Anion Gap 15 BUN 14 Creatinine 1.9 H Creat Clearance w eGFR 27.76 POC Glucometer Random Glucose 181 H Calcium 7.0 L Magnesium Total Bilirubin 0.4 AST 295 H ALT 133 H Alkaline Phosphatase 110 D Total Protein 5.5 L Albumin 2.6 L Random Vancomycin Active Medications Generic Name Dose Route Start Last Admin Trade Name Peng PRN Reason Stop Dose Admin Acetaminophen 650 mg 02/28/18 13:53 Tylenol - PO Q6H PRN Fever Or Pain Al Hydroxide/Mg Hydroxide 30 ml 02/28/18 13:53 Mylanta Oral Suspension - PO Q6H PRN DYSPEPSIA Atorvastatin Calcium 20 mg 02/28/18 22:00 Lipitor - PO HS [facility] Docusate Sodium 300 mg 02/28/18 16:21 Colace Liquid - PO DAILY PRN CONSTIPATION Enoxaparin Sodium 80 mg 02/28/18 16:21 Lovenox - SQ 02/28/18 16:22 ONCE ONE Heparin Sodium (Porcine) 5,000 unit 02/28/18 14:00 Heparin - SQ TID [facility] Potassium Chloride/Sodium Chloride 20 meq in 1,000 mls @ 125 mls/hr 02/28/18 13:53 Ns+20 Meq Kcl - IV ASDIR [facility] Piperacillin Sod/Tazobactam 50 mls @ 100 mls/hr 02/28/18 15:00 Sod 3.375 gm/ Dextrose IVPB Q6H-IV [facility] Protocol Vancomycin HCl 1 gm in 200 mls @ 133.333 mls/hr 02/28/18 16:00 Vancomycin 1 Gm Premix - IVPB 02/28/18 17:29 ONCE ONE Protocol Lactated Ringer's 1,500 mls @ 1,500 mls/hr 02/28/18 16:15 Lactated Ringers Solution IV 02/28/18 17:14 ONCE ONE Insulin Aspart 1 vial 02/28/18 16:30 Novolog Vial Sliding Scale - SQ ACHS [facility] Protocol Insulin Detemir 5 units 02/28/18 22:00 Levemir Vial SQ HS [facility] Melatonin 5 mg 02/28/18 13:53 Melatonin PO HS PRN INSOMNIA Metoprolol Succinate 50 mg 02/28/18 22:00 Toprol Xl - PO BID [facility] Nystatin 1 applic 03/01/18 10:00 Nystop Powder - TP DAILY [facility] Ondansetron HCl 4 mg 02/28/18 13:53 Zofran Injection IVPUSH Q6H PRN NAUSEA AND/OR VOMITING Oxycodone/Acetaminophen 1 combo 02/28/18 16:18 Percocet 5/325 - PO TID PRN PAIN LEVEL 6-10 Pantoprazole Sodium 40 mg 03/01/18 10:00 Protonix - PO DAILY [facility] Promethazine HCl 12.5 mg 02/28/18 13:53 02/28/18 14:35 Phenergan Injection - IVPUSH 12.5 mg Q6H PRN Administration NAUSEA-FOR RESCUE AFTER 15 MIN Visit type - Emergency Visit Emergency Visit: Yes ED Registration Date: 02/25/18 Care time: The patient presented to the Emergency Department on the above date and was hospitalized for further evaluation of their emergent condition. - New Patient This patient is new to me today: Yes Date on this admission: 02/28/18 - Critical Care Critical Care patient: Yes Total Critical Care Time (in minutes): 40 Critical Care Statement: The care of this patient involved high complexity decision making to prevent further life threatening deterioration of the patient 's condition and/or to evaluate & treat vital organ system(s) failure or risk of failure. - Discharge Referral Referred to [facility] Med P.C.: No
--- NOTE | 2018-02-28 16:43 | RAPID ---
Rapid Response - Rapid Response Assessment: Code 99 called at 4:01pm. Primary team immediately responded. Please refer to paper chart for code sheet. Patient's boyfriend, Mr. Gandhi was notified over the phone and outside the recovery room during the code as he is the pt's emergency manager contact. Patient's son's phone number was provided by the boyfriend who was then notified and updated of the pt's current status. Patient was pronounced at 4:33pm by Dr. Daniel. The case was referred to medical aides teacher.
[2018-02-28] MEDS ORDERED: oxyCODONE HCL 5 MG TABLET PO PRN (16:54)
--- NOTE | 2018-02-28 17:03 | PN ---
Progress Note (short form) - Note Progress Note: Patient became hypotensive in the PACU so Phenylephrine was given 100 ug iv at15.57 along with iv fluids.A total of 600 ug phenylephrine and about 3 litter of crystaloids were given IV.Patient remained relatively stable and allert and oriented all throughout this time.When CROCHET MACHINE OPERATOR was moving the patient to the ICU bed patient became agitated and unresponsive and code 99 was called at 1601.Patient was intubated by Dr Schulte and full code protocol was followed for about 30 minutes.She was shocked twice.She never responded to code therefore patient was pronounced at 16.30.
[2018-02-28 17:05] LABS: ALBUMIN 2.2 g/dl (3.4-5.0); ALK PHOS 104 U/L (45-117); ANION GAP 19 MMOL/L (8-16); BILIRUBIN,TOTAL 0.4 mg/dL (0.2-1.0); BLOOD UREA NITROGEN 14 mg/dL (7-18); CHLORIDE 114 mmol/L (98-107); CO2 13 mmol/L (21-32); CREATININE 2.4 mg/dL (0.55-1.02); GLUCOSE,RANDOM 257 mg/dL (74-106); POTASSIUM 4.4 mmol/L (3.5-5.1); SGPT/ALT 191 U/L (12-78); SODIUM 146 mmol/L (136-145); TOT PROT 4.7 g/dl (6.4-8.2)
[2018-02-28 17:12] LABS: SGOT/AST 439 U/L (15-37)
[2018-02-28 17:13] LABS: CALCIUM 6.7 mg/dL (8.5-10.1)
[2018-02-28] MEDS ORDERED: ACETAMINOPHEN 1000 MG/100 ML VIAL (NON FORMULARY) IVPB ONE (17:18)
--- NOTE | 2018-02-28 18:17 | PN ---
Teaching Attending Note Name of Resident: Cely Springer ATTENDING PHYSICIAN STATEMENT Pt was not seen this AM as she was in the OR. Code 99 was called in PACU. refer to code sheet. Family was notified Dr Rubalcava notified patient pronounced at 1633 by me.
--- NOTE | 2018-02-28 18:17 | PN ---
Physical Exam: SUBJECTIVE: Patient seen and examined at bedside this morning. She is still complaining of abdominal pain but otherwise she has no other complaints. She is scheduled for debridement today. OBJECTIVE: Vital Signs Period Temp Pulse Resp BP Sys/Rivera Pulse Ox Last 24 Hr 97.5 F-98.9 F 87-109 14-20 84-118/52-74 94-99 GENERAL: The patient is awake, alert, and fully oriented, in no acute distress. HEAD: Normal with no signs of trauma. NECK: Trachea midline, full range of motion, supple. LUNGS: Breath sounds equal, clear to auscultation bilaterally. HEART: Regular rate and rhythm, S1, S2 without murmur, rub or gallop. ABDOMEN: Soft, +tenderness on LLQ/RLQ, nondistended, normoactive bowel sounds. EXTREMITIES: 2+ pulses, warm, well-perfused, no edema. NEUROLOGICAL: Cranial nerves II through XII grossly intact. Normal speech, gait not observed. PSYCH: Normal mood, normal affect. SKIN: Warm, dry, normal turgor, no rashes or lesions noted Laboratory Results - last 24 hr 02/27/18 02/28/18 02/28/18 21:37 00:00 05:33 WBC RBC Hgb Hct MCV MCH MCHC RDW Plt Count MPV Absolute Neuts (auto) Neutrophils % Lymphocytes % Monocytes % Eosinophils % Basophils % Nucleated RBC % Sodium 142 Potassium 4.6 Chloride 110 H Carbon Dioxide 16 L Anion Gap 16 BUN 15 Creatinine 2.0 H Creat Clearance w eGFR 26.16 POC Glucometer 293 183 Random Glucose 276 H Lactic Acid Calcium 7.0 L Magnesium 1.5 L Total Bilirubin AST ALT Alkaline Phosphatase Total Protein Albumin Random Vancomycin 02/28/18 02/28/18 02/28/18 07:05 07:05 07:05 WBC 8.5 RBC 3.62 Hgb 10.5 L Hct 32.6 MCV 90.2 MCH 29.2 MCHC 32.3 RDW 13.9 Plt Count 106 L D MPV 11.0 Absolute Neuts (auto) 6.5 Neutrophils % 76.2 Lymphocytes % 14.3 D Monocytes % 6.0 Eosinophils % 2.7 Basophils % 0.8 Nucleated RBC % 0 Sodium 146 H Potassium 4.5 Chloride 115 H Carbon Dioxide 16 L Anion Gap 15 BUN 14 Creatinine 1.9 H Creat Clearance w eGFR 27.76 POC Glucometer Random Glucose 181 H Lactic Acid Calcium 7.0 L Magnesium Total Bilirubin 0.4 AST 295 H ALT 133 H Alkaline Phosphatase 110 D Total Protein 5.5 L Albumin 2.6 L Random Vancomycin 15.74 02/28/18 02/28/18 02/28/18 15:15 15:15 15:15 WBC 13.1 H RBC 3.21 L Hgb 9.5 L Hct 29.8 L MCV 92.8 MCH 29.6 MCHC 31.9 L RDW 14.4 Plt Count 129 L D MPV 11.7 H Absolute Neuts (auto) Neutrophils % Lymphocytes % Monocytes % Eosinophils % Basophils % Nucleated RBC % Sodium 146 H Potassium 4.4 Chloride 114 H Carbon Dioxide 13 L Anion Gap 19 H BUN 14 Creatinine 2.4 H Creat Clearance w eGFR 21.20 POC Glucometer Random Glucose 257 H Lactic Acid 6.6 H* Calcium 6.7 L* Magnesium Total Bilirubin 0.4 AST 439 H ALT 191 H Alkaline Phosphatase 104 Total Protein 4.7 L Albumin 2.2 L Random Vancomycin Active Medications Generic Name Dose Route Start Last Admin Trade Name Freq PRN Reason Stop Dose Admin Acetaminophen 650 mg 02/28/18 13:53 Tylenol - PO Q6H PRN Fever Or Pain Acetaminophen 325 mg 02/28/18 16:54 Tylenol - PO Q8H PRN PAIN LEVEL 6-10 Al Hydroxide/Mg Hydroxide 30 ml 02/28/18 13:53 Mylanta Oral Suspension - PO Q6H PRN DYSPEPSIA Atorvastatin Calcium 20 mg 02/28/18 22:00 Lipitor - PO HS BHARATH Docusate Sodium 300 mg 02/28/18 16:21 Colace Liquid - PO DAILY PRN CONSTIPATION Heparin Sodium (Porcine) 5,000 unit 02/28/18 14:00 Heparin - SQ TID BHARATH Potassium Chloride/Sodium Chloride 20 meq in 1,000 mls @ 125 mls/hr 02/28/18 13:53 Ns+20 Meq Kcl - IV ASDIR BHARATH Piperacillin Sod/Tazobactam 50 mls @ 100 mls/hr 02/28/18 15:00 Sod 3.375 gm/ Dextrose IVPB Q6H-IV BHARATH Protocol Insulin Aspart 1 vial 02/28/18 16:30 Novolog Vial Sliding Scale - SQ ACHS BHARATH Protocol Insulin Detemir 5 units 02/28/18 22:00 Levemir Vial SQ HS BHARATH Melatonin 5 mg 02/28/18 13:53 Melatonin PO HS PRN INSOMNIA Metoprolol Succinate 50 mg 02/28/18 22:00 Toprol Xl - PO BID BHARATH Nystatin 1 applic 03/01/18 10:00 Nystop Powder - TP DAILY BHARATH Ondansetron HCl 4 mg 02/28/18 13:53 Zofran Injection IVPUSH Q6H PRN NAUSEA AND/OR VOMITING Oxycodone HCl 5 mg 02/28/18 16:54 Roxicodone - PO Q8H PRN PAIN LEVEL 6-10 Pantoprazole Sodium 40 mg 03/01/18 10:00 Protonix - PO DAILY BHARATH Promethazine HCl 12.5 mg 02/28/18 13:53 02/28/18 14:35 Phenergan Injection - IVPUSH 12.5 mg Q6H PRN Administration NAUSEA-FOR RESCUE AFTER 15 MIN ASSESSMENT/PLAN: Patient is a 53 year old female with past medical history significant for recent laminectomy (01/03/18), presented with foul-smelling dehiscent wound on L -spine. #Infected Lumbar surgical wound site s/p laminectomy -wound Cx preliminary report: Pseudomonas, S. aureus (MSSA), Staph coagulase negative -Dr. Bailey consulted. Recommendations appreciated. -Continue Zosyn 3.375mg on day 3 -Cr increased to 2.0 -Leukocytosis, resolved (WBC 8.5) -Hold Vancomycin for now, vanc level 19.96 -Proper wound care. -Dr. Rubalcava consulted. Recommendations appreciated. -For debridement today. -L-spine CT showed no definite signs of abscess #Dehydration 2/2 n/v/d -NBNB vomit. Resolved -Watery diarrhea. Resolved -Pt now c/o of diffuse abdominal pain and nausea. -No vomiting, no diarrhea. Soft, nontender, nondistended abdomen with NABS. -Maalox 30ml given PRN -Zofran and Protonix PRN #LUIS -Cr 2.0 -likely 2/2 to DHN from poor oral intake vs vancomycin related -Bladder scan x1 <12ml; good urine output -IVF #Hypokalemia, resolved -K 4.5 today -KCl 40meq PO given -IV NS with KCl 20meq at 125ml/hr x1 given -monitor bmp #Anxiety, Depression -Dr. Lemos consulted. Recommendations appreciated. -Cymbalta 20mg OD suggested for depression and anxiety. -Pt reluctant to start an antidepressant and would like to think about it. -Pt expressed that she would want to talk to a psychologist. Will refer as outpatient. #DM -BGM ACHS -ISS -holding metformin #HTN -c/w Metoprolol 50 bid #HLD -c/w simvastatin 40 hs #GERD -c/w protonix #FEN -IV NS -electrolytes wnl, routine bmp monitoring -Na controlled, low fat, DM diet #PPx -Heparin 5000 unit sq tid #Dispo -Med/Surg Visit type - Emergency Visit Emergency Visit: Yes ED Registration Date: 02/25/18 Care time: The patient presented to the Emergency Department on the above date and was hospitalized for further evaluation of their emergent condition. - New Patient This patient is new to me today: Yes Date on this admission: 03/02/18 - Critical Care Critical Care patient: No - Discharge Referral Referred to [facility] No
[2018-02-28 20:22] VITALS: BP 81/62
[2018-02-28 20:33] VITALS: PULSE 36
[2018-02-28] MEDS ORDERED: ATORVASTATIN CA 20 MG TABLET (FP) PO SCH (22:00)
[2018-02-28] MEDS ORDERED: INSULIN (LEVEMIR) 100 UNITS/ML UNITS SQ SCH (22:00)
--- NOTE | 2018-03-01 05:06 | DS ---
Physical Exam: SUBJECTIVE: OBJECTIVE: LABS Laboratory Results - last 24 hr 02/28/18 02/28/18 02/28/18 05:33 07:05 07:05 WBC 8.5 RBC 3.62 Hgb 10.5 L Hct 32.6 MCV 90.2 MCH 29.2 MCHC 32.3 RDW 13.9 Plt Count 106 L D MPV 11.0 Absolute Neuts (auto) 6.5 Neutrophils % 76.2 Lymphocytes % 14.3 D Monocytes % 6.0 Eosinophils % 2.7 Basophils % 0.8 Nucleated RBC % 0 Sodium Potassium Chloride Carbon Dioxide Anion Gap BUN Creatinine Creat Clearance w eGFR POC Glucometer 183 Random Glucose Lactic Acid Calcium Total Bilirubin AST ALT Alkaline Phosphatase Troponin I Total Protein Albumin Random Vancomycin 15.74 02/28/18 02/28/18 02/28/18 07:05 15:15 15:15 WBC 13.1 H RBC 3.21 L Hgb 9.5 L Hct 29.8 L MCV 92.8 MCH 29.6 MCHC 31.9 L RDW 14.4 Plt Count 129 L D MPV 11.7 H Absolute Neuts (auto) Neutrophils % Lymphocytes % Monocytes % Eosinophils % Basophils % Nucleated RBC % Sodium 146 H 146 H Potassium 4.5 4.4 Chloride 115 H 114 H Carbon Dioxide 16 L 13 L Anion Gap 15 19 H BUN 14 14 Creatinine 1.9 H 2.4 H Creat Clearance w eGFR 27.76 21.20 POC Glucometer Random Glucose 181 H 257 H Lactic Acid Calcium 7.0 L 6.7 L* Total Bilirubin 0.4 0.4 AST 295 H 439 H ALT 133 H 191 H Alkaline Phosphatase 110 D 104 Troponin I Total Protein 5.5 L 4.7 L Albumin 2.6 L 2.2 L Random Vancomycin 02/28/18 02/28/18 15:15 Unknown WBC RBC Hgb Hct MCV MCH MCHC RDW Plt Count MPV Absolute Neuts (auto) Neutrophils % Lymphocytes % Monocytes % Eosinophils % Basophils % Nucleated RBC % Sodium Potassium Chloride Carbon Dioxide Anion Gap BUN Creatinine Creat Clearance w eGFR POC Glucometer Random Glucose Lactic Acid 6.6 H* Calcium Total Bilirubin AST ALT Alkaline Phosphatase Troponin I 1.00 H* Total Protein Albumin Random Vancomycin Imaging CXR- no acute chest pathology CT L-spine-CT lumbar spine completed with no definite signs of abscess. HOSPITAL COURSE: Date of Admission:02/25/18 Date of Discharge: 03/01/18 Patient is a 53 y/o F with PMH Laminectomy by Dr. Rubalcava on January 03 who presented because her back wound, which has been slowly healing since her surgery has now developed a green discharge and foul odor. Patient has wound care nurse 3x/week changing dressings, and recently, nurse and patient felt wound was malodorous. Patient tried calling wound care but did not reach anyone and came to ED. Several weeks ago, pt had a debridement done by Dr. Fernandez. Of note, Pt describes decreased appetite since the surgery with weight loss of 20 lbs, several days of NBNB vomiting a few days ago, watery diarrhea for the last 3 days. Pt has not been on abx since her surgery. Patient was admitted for debridement of the infected lumbar surgical wound. ID and neurosurgery consulted. Preliminary report of the wound culture was positive for Pseudomonas and S. aureus. Patient was started on Zosyn and Vancomycin. Vomiting and diarrhea since admission has resolved. Patient was noted to have elevated Cr and Vancomycin was discontinued and IV fluids were given. Patient was also noted to be hypokalemic and was given PO and potassium. She was scheduled for debridement of the wound. Patient had an episode of vasovagal near syncope which improved with aggressive hydration. EKG showed ST depressions and troponin trend 0.03 x2. Cardiology was consulted. As per cardiology, no absolute contraindication for surgery in view of absence of ischemic symptoms, decompensated congestive heart failure or malignant arrhythmias. Echocardiography does not reveal evidence of hypertrophic obstructive cardiomyopathy. Patient underwent debridement of the lumbar spine wound. At the PACU, patient became hypotensive. Phenylephrine and IV fluids were given. Patient became relatively stable and alert. As she was being moved to the ICU, patient became agitate and responsive. Code 99 was called. Primary care team arrived and full code protocol was followed. Family was notified. Patient was pronounced at 4:33pm. Minutes to complete discharge: 45 Discharge Summary Reason For Visit: DELAYED SURGICAL WOUND HEALING Current Active Problems Delayed surgical wound healing (Acute) History of laminectomy (Acute) Vasovagal near syncope (Acute) Condition: Fair - Instructions Referrals: Zulay Wilburn MD [Primary Care Provider] - Disposition: - Home Medications Comprehensive Discharge Medication List: Ambulatory Orders Insulin (Levemir) [Levemir Vial] 35 unit SQ HS 10/28/14 Metformin HCl [Glucophage] 1,000 mg PO BID 02/25/18 Metoprolol Succinate [Toprol Xl] 50 mg PO BID 02/25/18 Pantoprazole Sodium [Protonix] 40 mg PO DAILY 02/25/18 Simvastatin 40 mg PO HS 02/25/18 This patient is new to me today: Yes Date on this admission: 03/02/18 Emergency Visit: Yes ED Registration Date: 02/25/18 Care time: The patient presented to the Emergency Department on the above date and was hospitalized for further evaluation of their emergent condition. Critical Care patient: No - Discharge Referral Referred to [facility] No
[2018-03-01] MEDS ORDERED: PANTOPRAZOLE 40 MG TABLET (FP) PO SCH (10:00)
[2018-03-01] MEDS ORDERED: NYSTATIN POWDER 100,000 UNITS/GM - 15 GM TOPICAL POWDER TP SCH (10:00)
== END 2018-02-28 16:34 | disposition expired | DRG 857 ==
LOC: JER 11:45 → JERBED 19:06 → J8W 22:26 → J4S 02-27 15:22 → JSAMEDAYSX 02-28 10:00
PROVIDERS: ADMIT Hospitalist; ATTEND Internal Medicine
PROC: 0HX6XZZ Transfer Back Skin, External Approach (ICD-10-PCS; 2018-02-28)
PROC: 0JQ70ZZ Repair Back Subcutaneous Tissue and Fascia, Open Approach (ICD-10-PCS; principal; 2018-02-28 11:30)
DX: T81.4XXA Infection following a procedure, initial encounter (principal); T81.32XA Disruption of internal operation (surgical) wound, not elsewhere classified, initial encounter; E87.2 Acidosis; N17.9 Acute kidney failure, unspecified; E87.0 Hyperosmolality and hypernatremia; E11.9 Type 2 diabetes mellitus without complications; I10 Essential (primary) hypertension; E78.5 Hyperlipidemia, unspecified; Y82.8 Other medical devices associated with adverse incidents; K21.9 Gastro-esophageal reflux disease without esophagitis; Z79.4 Long term (current) use of insulin; E86.0 Dehydration; R19.7 Diarrhea, unspecified; E86.1 Hypovolemia; R11.10 Vomiting, unspecified; F32.9 Major depressive disorder, single episode, unspecified; F41.9 Anxiety disorder, unspecified; E87.6 Hypokalemia; Y83.8 Other surgical procedures as the cause of abnormal reaction of the patient, or of later complication, without mention of misadventure at the time of the procedure; R11.2 Nausea with vomiting, unspecified; R55 Syncope and collapse; I95.9 Hypotension, unspecified; B96.5 Pseudomonas (aeruginosa) (mallei) (pseudomallei) as the cause of diseases classified elsewhere; B95.61 Methicillin susceptible Staphylococcus aureus infection as the cause of diseases classified elsewhere; R00.0 Tachycardia, unspecified
CPT/HCPCS: 36415; 71045-TC-FY; 72131-TC; 80048; 80053; 81003; 82550; 82803; 82962; 83605; 83735; 84100; 84484; 85025; 85027; 85610; 85651; 85730; 86140; 87040; 87070; 87075; 87086; 87186; 87205; 93005; 93010; 94760; 99284-25; G0480; J0131; J1644; J7030